=== PATIENT | female | born 1970 | race Caucasian/White ===

== ENCOUNTER 2019-01-01 11:00 | Outpatient (RCR) | payer MEDICAID, SELFPAY | END 2019-01-01 13:00 | disposition home or self-care (01) | LOC: OT 11:00 | PROVIDERS: Visit Provider Psychiatry & Neurology Neurology | DX: I63.9 Cerebral infarction, unspecified (principal); M79.609 Pain in unspecified limb; R25.2 Cramp and spasm | CPT/HCPCS: 97110; 97140; 97166 ==

== ENCOUNTER 2019-01-07 11:00 | Outpatient (RCR) | payer MEDICAID, SELFPAY | END 2019-01-07 13:00 | disposition home or self-care (01) | LOC: PT.CARL 11:00 | PROVIDERS: Visit Provider Psychiatry & Neurology Neurology | DX: I63.9 Cerebral infarction, unspecified (principal); M79.609 Pain in unspecified limb; M62.838 Other muscle spasm; R25.2 Cramp and spasm | CPT/HCPCS: 97014; 97110; 97116; 97140; 97163; G0283 ==

== ENCOUNTER 2019-10-28 16:00 | Emergency (ER) | payer MEDICAID, SELFPAY ==
[2019-10-28 16:05] VITALS: BP 132/70; PULSE 83; RESP 18; TEMP 36.7; O2SAT 98; BMI 35.5
--- NOTE | 2019-10-28 16:09 | HMH.COUGH ---
[facility] HPI - History of Present Illness Complaint:: nausea, diarrhea HPI:: 49 year old female presents to the [facility] with less than 24 hours of nausea, diarrhea, and at least 3 family members with the same symptoms. She has not had fever or cough Home Medications: Home Medications Medication Instructions Recorded Confirmed Type ondansetron HCL [Ondansetron HCl] 4 mg PO Q6HP PRN #30 tab 10/28/19 Rx Allergies/Adverse Reactions: Allergies Allergy/AdvReac Type Severity Reaction Status Date / Time No Known Allergies Allergy Verified 10/28/19 16:03 [facility] Triage - Symptoms Fever History: No Chills: No Myalgia: No Nasal Drainage: No Sore Throat: No Productive Cough: No Non-productive Cough: No Ear or Sinus Pain: No Joint Pain: No Chest Pain: No Rash: No Shortness of Breath: No Nausea or Vomitting: Yes (since this am) Headache: No Abdominal Pain: No Diarrhea: Yes - Exposure History Foreign Travel: No Direct Contact with COVID-19 Patient: No - Risk Factors Greater than 60 Years Old: No COPD: Yes Diabetes: No Heart Disease: Yes (HTN) Home Oxygen Use: No Chronic Renal Disease: No Chronic Liver Disease: No Neurologic/Neurodevelopmental/intellectual disability: No Other Chronic Diseases: No If Female, currently : No Current Smoker: Yes Former Smoker: No [facility] History I have reviewed the patient's past medical history: Yes - Social History Smoking Status: Current every day smoker Tobacco Type: cigarettes # Packs/Day (cigarettes): 1 Alcohol Intake: never Occupational Status: other ROS Obtained: Yes All systems reviewed & no additional complaints [facility] Exam - General General appearance: alert, in no apparent distress - Head Head exam: atraumatic, normocephalic, normal inspection - Eye Eye exam: Present: normal appearance, PERRL, EOMI - ENT ENT exam: Present: normal exam, normal oropharynx, mucous membranes moist, TM's normal bilaterally, normal external ear exam - Neck Neck exam: Present: normal inspection, full ROM, trachea midline. Absent: meningismus, lymphadenopathy - Chest Chest inspection: Present: normal inspection, symmetric chest wall rise. Absent: tenderness - Respiratory Respiratory exam: Present: normal lung sounds bilaterally. Absent: respiratory distress - Cardiovascular Cardiovascular exam: Present: regular rate, normal rhythm. Absent: JVD - Extremities Exam Extremities exam: Present: normal inspection, full ROM, normal capillary refill. Absent: calf tenderness - Neurological Exam Neurological exam: Present: alert, oriented X3 - Skin Skin exam: Present: warm, dry, intact, normal color - Lymphatic Lymphatic Findings: no adenopathy [facility] MDM Vital Signs: 10/28/19 16:05 10/28/19 16:15 Temperature 98.1 F 97.9 F Temperature Source Oral Oral Pulse Rate 86 Pulse Rate [Right Brachial] 83 Respiratory Rate 18 18 Blood Pressure 132/70 Blood Pressure [Right Arm] 132/70 Blood Pressure Mean [Right Arm] 90 Blood Pressure Source Automatic Cuff Blood Pressure Source [Right Arm] Automatic Cuff Blood Pressure Position Sitting Blood Pressure Position [Right Arm] Sitting 02 Sat by Pulse Oximetry 98 Oxygen Delivery Method Room Air Medical Decision Narrative: no concern about coronavirus. Diagnosis is viral gastroenteritis [facility] Disposition Clinical Impression: Gastroenteritis Disposition: Home, Self-Care Instructions: Viral Gastroenteritis Prescriptions: ondansetron HCL [Ondansetron HCl] 4 mg PO Q6HP PRN #30 tab PRN Reason: Nausea Transmission Status: Received by [facility] #[id number] Referrals: Jimena Childs APRN [Primary Care Provider] -
[2019-10-28 16:15] VITALS: BP 132/70; PULSE 86; RESP 18; TEMP 36.6; O2SAT 97
== END 2019-10-28 16:18 | disposition home or self-care (01) ==
PROVIDERS: Emergency Provider Family Medicine; PCP Nurse Practitioner Family
DX: K52.9 Noninfective gastroenteritis and colitis, unspecified (principal); F17.210 Nicotine dependence, cigarettes, uncomplicated
CPT/HCPCS: 99201; 99212

== ENCOUNTER 2021-03-11 17:50 | Emergency (ER) | payer MEDICAID, SELFPAY ==
[2021-03-11 20:20] VITALS: BP 121/67; PULSE 86; RESP 21; TEMP 37.2; O2SAT 100; BMI 42.7
[2021-03-11 20:49] LABS: UTC Strep Screen (Rapid) Negative (Negative)
[2021-03-11 21:04] LABS: Adenovirus,PCR Not Detected (NotDetected); Bordetella Pertussis Not Detected (NotDetected); Chlamydophila Pneumoniae, PCR Not Detected (NotDetected); Coronavirus NL63 Not Detected (NotDetected); Coronavirus OC43 Not Detected (NotDetected); Coronovirus HKU1,PCR Not Detected (NotDetected); Human Metapneumovirus Not Detected (NotDetected); Influenza A, PCR Not Detected (NotDetected); Influenza AH1, 2009 Not Detected (NotDetected); Influenza AH1, PCR Not Detected (NotDetected); Influenza AH3,PCR Not Detected (NotDetected); Influenza B, PCR Not Detected (NotDetected); Mycoplasma Pneumoniae, PCR Not Detected (NotDetected); Parainfluenza 1, PCR Not Detected (NotDetected); Parainfluenza 2, PCR Not Detected (NotDetected); Parainfluenza 3, PCR Not Detected (NotDetected); Parainfluenza 4, PCR Not Detected (NotDetected); Respiratory Syncytial Virus Not Detected (NotDetected); Rhinovirus/Enterovirus Not Detected (NotDetected)
--- NOTE | 2021-03-11 21:15 | HMH.EDUTC ---
[facility] [place] Impression: Viral syndrome, Exposure to COVID-19 virus Asthma exacerbation Qualifiers: Asthma severity: unspecified severity Asthma persistence: unspecified Qualified Code(s): J45.901 - Unspecified asthma with (acute) exacerbation Disposition: Home, Self-Care Condition on Discharge: Good Instructions: DI for Asthma -- Adult, Preventing the Spread of Coronavirus Discharge Instructions Additional Instructions: Drink plenty of fluids. Take tylenol or ibuprofen for pain or fever. Take the medications as directed. Follow up with your regular doctor. GO TO THE ER FOR ANY WORSENING SYMPTOMS Quarantine until you know the results of your covid-19 test. If it is positive, the health department should call you and give you further instructions about your length of Quarantine and other things. Notify your school or workplace of your results and follow their instructions regarding return to work/school. The cough medication (promethazine dm) will make you drowsy, so don't drive or operate heavy machinery after taking it. Prescriptions: Amoxicillin/Potassium Clav [Augmentin 875-125 Tablet] 1 tab PO Q12H 10 Days #20 tab Transmission Status: Received by [facility] predniSONE [Deltasone 10mg tablet] 10 mg PO DAILY 9 Days #21 tab Transmission Status: Received by [facility] guaiFENesin [Mucinex 600mg tablet] 1 - 2 tab PO BIDP PRN #30 tab.er.12h PRN Reason: Congestion Transmission Status: Received by [facility] Benzonatate [Tessalon Perle 100mg Cap] 100 mg PO TIDP PRN #30 cap PRN Reason: Cough Transmission Status: Received by [facility] Referrals: Jimena Childs APRN [Primary Care Provider] - Time of Disposition: 21:18 Medical Decision Making - Medical Records Medical records reviewed: No: I reviewed the patient's medical records. - Shivam Inquiry Pt receiving controlled substance: No Vital Signs: 03/11/21 20:20 03/11/21 21:22 Temperature 99 F 99.0 F Temperature Source Oral Pulse Rate 86 Pulse Rate [Right Brachial] 86 Respiratory Rate 21 Blood Pressure 121/67 Blood Pressure [Right Arm] 121/67 Blood Pressure Mean [Right Arm] 85 Blood Pressure Source [Right Arm] Automatic Cuff Blood Pressure Position [Right Arm] Sitting 02 Sat by Pulse Oximetry 100 Oxygen Delivery Method Room Air - Lab Data Lab Results 03/11/21 20:32: Strep Scn Rapid Clinic Negative Orders (Tests/Meds): ORDERS Category Date Time Status Full Resp Panel w/COVID ([facility]) Routine Lab 03/11/21 20:33 Received Strep Screen Confirmation Stat Micro 03/11/21 20:32 Received [facility] UTC HPI - General Stated complaint: flu/covid symptoms Time Seen by Provider: 03/11/21 21:15 Mode of Arrival: Ambulatory Source of Information: Parent(s) Limitations: No Limitations Description of Symptoms (Recalled from Triage Doc. by RN): PATIENT C/O FEVER, COUGH, MUSCLE ACHES, AND CHILLS X 2 DAYS HEENT Symptoms (Recalled from RN notes): No Resp Symptoms (Recalled from RN notes): Yes Skin Symptoms (Recalled from RN notes): No MS Symptoms (Recalled from RN notes): No Functional Status (Recalled from RN notes): WNL - History of Present Illness Provider Complaint: She c/o body ache, fever, cough, sore throat for the past 2 days. - Related Data Previous Rx's Medication Instructions Recorded ondansetron HCL [Ondansetron HCl] 4 mg PO Q6HP PRN #30 tab 10/28/19 Amoxicillin/Potassium Clav 1 tab PO Q12H 10 Days #20 tab 03/11/21 [Augmentin 875-125 Tablet] Benzonatate [Tessalon Perle 100mg 100 mg PO TIDP PRN #30 cap 03/11/21 Cap] guaiFENesin [Mucinex 600mg tablet] 1 - 2 tab PO BIDP PRN #30 03/11/21 tab.er.12h predniSONE [Deltasone 10mg tablet] 10 mg PO DAILY 9 Days #21 tab 03/11/21 Allergies Allergy/AdvReac Type Severity Reaction Status Date / Time No Known Allergies Allergy Verified 10/28/19 16:03 - Worker's Comp Is this a Worker's Comp case?:
[2021-03-11 21:22] VITALS: BP 121/67; PULSE 86; RESP 21; TEMP 37.2; O2SAT 100
[2021-03-13 16:36] LABS: Coronavirus 229E Detected (NotDetected)
[2021-03-13 16:37] LABS: Coronavirus 19, PCR Detected (NotDetected)
--- NOTE | 2021-03-13 17:28 | PC.NURSE ---
relayed pos. covid results.
== END 2021-03-11 21:23 | disposition home or self-care (01) ==
PROVIDERS: Emergency Provider Nurse Practitioner Family; PCP Nurse Practitioner Family
DX: U07.1 COVID-19 (principal); J45.901 Unspecified asthma with (acute) exacerbation; F17.210 Nicotine dependence, cigarettes, uncomplicated
CPT/HCPCS: 87581; 87633; 87798; 87880; 99202; G0463

== ENCOUNTER 2022-01-22 20:32 | Emergency (ER) | payer MEDICAID, SELFPAY ==
[2022-01-22] VITALS (11 sets, daily range): BP systolic 121–138; BP diastolic 69–78; PULSE 84–94; RESP 16–30; TEMP 36.8–37.5; O2SAT 89–97; BMI 40.7
--- NOTE | 2022-01-22 20:56 | CT_ITS ---
PROCEDURE INFORMATION: Exam: CT Head Without Contrast Exam date and time: 01/22/2022 9:28 PM Age: 51 years old Clinical indication: Other: Headache past HX of stroke; Patient HX: Past HX of stroke, left side weakness, headache; Additional info: [facility] TECHNIQUE: Imaging protocol: Computed tomography of the head without contrast. Radiation optimization: All CT scans at this facility use at least one of these dose optimization techniques: automated exposure control; mA and/or kV adjustment per patient size (includes targeted exams where dose is matched to clinical indication); or iterative reconstruction. COMPARISON: No relevant prior studies available. FINDINGS: Brain: Right MCA distribution encephalomalacia. No hemorrhage. No mass effect or midline shift. Cerebral ventricles: No ventriculomegaly. Paranasal sinuses: No fluid levels. Mastoid air cells: Visualized mastoid air cells are well aerated. Bones/joints: No acute fracture. Soft tissues: No significant soft tissue abnormality. IMPRESSION: Right MCA distribution encephalomalacia compatible with prior ischemia but limiting sensitivity for acute findings. If there is ongoing concern, MRI is recommended for further evaluation.
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
--- NOTE | 2022-01-22 20:56 | XR_ITS ---
PROCEDURE INFORMATION: Exam: XR Chest Exam date and time: 01/22/2022 9:25 PM Age: 51 years old Clinical indication: Other: Headache, past HX of stroke; Additional info: [facility] TECHNIQUE: Imaging protocol: Radiologic exam of the chest. Views: 1 view. COMPARISON: CR CXR CHEST(2 VIEWS-NOT PORTABLE) 09/07/2016 11:15 AM FINDINGS: Lungs: Unremarkable. No consolidation. Pleural spaces: Unremarkable. No pleural effusion. No pneumothorax. Heart/Mediastinum: Unremarkable. No cardiomegaly. Bones/joints: Unremarkable. Monitor device overlies the left hemithorax. IMPRESSION: No acute findings.
[2022-01-22 21:15] LABS: Coronavirus 19, PCR Not Detected (NotDetected); Influenza A, PCR Not Detected (NotDetected); Influenza B, PCR Not Detected (NotDetected)
[2022-01-22 21:34] LABS: Basophils # 0.3 K/mm3 (0-0.2); Basophils % 3.4 % (0.1-2.0); Eosinophils # 0.3 K/mm3 (0.0-0.4); Eosinophils % 2.8 % (0.1-12.0); Hematocrit 48.6 % (37.0-47.0); Hemoglobin 15.3 g/dL (12.2-16.2); Lymphocytes # 2.5 K/mm3 (0.7-4.5); Lymphocytes % 26.4 % (10-50); Mean Corpuscular HGB Conc 31.4 g/dL (31.8-35.4); Mean Corpuscular Hemoglobin 30.9 pg (27.0-31.2); Mean Corpuscular Volume 98.5 fl (81-99); Monocytes # 0.6 K/mm3 (0.1-1.0); Monocytes % 6.5 % (1.7-9.3); Neutrophils # 5.7 K/mm3 (1.8-7.8); Neutrophils % 60.8 % (37.0-80.0); Platelet Count 224 K/mm3 (142-424); Red Blood Count 4.94 M/mm3 (4.20-5.40); Red Cell Distribution Width 14.3 % (11.5-17.5); White Blood Count 9.3 K/mm3 (4.8-10.8)
[2022-01-22 21:35] LABS: Alanine Aminotransferase 57 U/L (12-78); Albumin Level 3.9 g/dl (3.5-5.0); Albumin/Globulin Ratio 1.1 (1.1-1.8); Alkaline Phosphatase 92 U/L (38-126); Anion Gap 10.2 mEq/L (5-15); Aspartate Amino Transferase 61 U/L (14-36); Bilirubin,Total 0.3 mg/dl (0.2-1.3); Blood Urea Nitrogen 15 mg/dl (7-17); Calcium 8.7 mg/dl (8.4-10.2); Carbon Dioxide 28 mmol/L (22.0-30.0); Chloride 107 mmol/L (98-107); Creatinine Clearance Estimated 108 mL/min (50-200); Estimated Glomerular Filt Rate 58 ml/min (>60); GFR (African American) 70 ML/MIN (>60); Globulin 3.4 g/dL (1.3-3.2); Glucose 113 mg/dl (74-100); Potassium 4.2 mmoL/L (3.5-5.1); Sodium 141 mmol/L (136-145); Total Protein,Serum 7.3 g/dl (6.3-8.2)
[2022-01-22 21:40] LABS: C-Reactive Protein 10.7 mg/L (0-4)
[2022-01-22 21:53] LABS: Procalcitonin 0.053 ng/mL (0.0-2.0)
--- NOTE | 2022-01-22 22:11 | PC.NURSE ---
Patient demanding to leave at this time. Requested results of INR, Spoke with Dr. Rose requested AMA to be signed.Educated patient that MD requested patient to wait on Xray results. Patient declined requesting to leave.
[2022-01-22 22:17] LABS: Erythrocyte Sedimentation Rate 15 mm/hr (0-30)
--- NOTE | 2022-01-22 22:33 | HMH.EDHA ---
ED Disposition Clinical Impression: Headache Qualifiers: Headache type: unspecified Headache chronicity pattern: acute headache Intractability: not intractable Qualified Code(s): R51.9 - Headache, unspecified UTI (urinary tract infection) Qualifiers: Urinary tract infection type: site unspecified Hematuria presence: without hematuria Qualified Code(s): N39.0 - Urinary tract infection, site not specified Disposition: Home, Self-Care Condition on Discharge: Good Instructions: DI for Headache, DI for Urinary Tract Infection (UTI) Additional Instructions: fluids and use meds and see pcp for follow up Prescriptions: levoFLOXacin [Levaquin 500mg tab] 500 mg PO DAILY #7 tab Transmission Status: Pending to [facility] Referrals: Provider,Referral, MD [Primary Care Provider] - - Critical Care Critical Care Time: No Attestation: On 01/22/22, the high probability of a clinically significant, sudden or life threatening deterioration of the following system(s) required my full and direct attention, intervention and personal management. The time I documented below is in addition to time spent performing reported procedures but includes the following listed in this critical care notation. Medical Decision Making - Medical Records Medical records reviewed: Yes: I reviewed the patient's medical records. - Shivam Inquiry Pt receiving controlled substance: No Vital Signs: 01/22/22 20:33 Temperature 99.5 F Temperature Source Oral Pulse Rate [Right] 93 H Respiratory Rate 16 Blood Pressure [Right Arm] 138/69 Blood Pressure Mean [Right Arm] 92 02 Sat by Pulse Oximetry 89 L Oxygen Delivery Method Room Air - Lab Data Lab results reviewed: Yes: I reviewed the patient's lab results. Lab Results 01/22/22 20:40: SARS-CoV-2 (PCR) Not detected, Influenza A Untype (PCR) Not detected, Influenza Type B (PCR) Not detected 01/22/22 21:00: WBC 9.3, RBC 4.94, Hgb 15.3, Hct 48.6 H, MCV 98.5, MCH 30.9, MCHC 31.4 L, RDW 14.3, Plt Count 224, MPV 9.0, Neut % (Auto) 60.8, Lymph % (Auto) 26.4, Coleman % (Auto) 6.5, Eos % (Auto) 2.8, Baso % (Auto) 3.4 H, Neut # (Auto) 5.7, Lymph # (Auto) 2.5, Coleman # (Auto) 0.6, Eos # (Auto) 0.3, Baso # (Auto) 0.3 H, ESR 15 01/22/22 21:00: Sodium 141, Potassium 4.2, Chloride 107, Carbon Dioxide 28, Anion Gap 10.2, BUN 15, Creatinine 1.00, Estimated Creat Clear 108, Estimated GFR 58 L, Est GFR ( Amer) 70, Glucose 113 H, Calcium 8.7, Total Bilirubin 0.3, AST 61 H, ALT 57, Alkaline Phosphatase 92, C-Reactive Protein 10.7 H, Total Protein 7.3, Albumin 3.9, Globulin 3.4 H, Albumin/Globulin Ratio 1.1, Procalcitonin 0.053 01/22/22 22:50: Urine Color Yellow, Urine Appearance Sl cloudy, Urine pH 6.5, Ur Specific [place] 1.015, Urine Protein Negative, Urine Glucose (UA) Negative, Urine Ketones Negative, Urine Blood Trace-i, Urine Nitrate Negative, Urine Bilirubin Negative, Urine Urobilinogen 0.2, Ur Leukocyte Esterase 3+ A, Urine RBC 3-5, Urine WBC 20-50 Result diagrams: 01/22/22 21:00 01/22/22 21:00 Orders (Tests/Meds): ED MEDICATIONS Generic Name Dose Route Start Last Admin Trade Name Freq PRN Reason Stop Dose Admin Sodium Chloride 1,000 mls @ 999 mls/hr 01/22/22 21:15 01/22/22 21:12 Sod Chlor 0.9% 1000ml Bag IV 01/22/22 22:15 999 mls/hr .Q1H1M BÁRBARA Administration Ceftriaxone Sodium 1 gm/ 50 mls @ 100 mls/hr 01/22/22 23:15 01/22/22 23:10 Sodium Chloride IV 02/05/22 23:14 100 mls/hr Q24H BÁRBARA Administration Discontinued Medications Generic Name Dose Route Start Last Admin Trade Name Freq PRN Reason Stop Dose Admin Ketorolac Tromethamine 30 mg 01/22/22 23:07 01/22/22 23:10 Ketorolac 30mg/Ml Vial IV 01/22/22 23:08 30 mg ONCE ONE Administration ORDERS Category Date Time Status Urine Culture Stat Micro 01/22/22 22:50 Received - Radiology Data #1 Image(s): Chest Image Reviewed: Yes I have reviewed radiologist's interpretation Preliminary Fin
[2022-01-22 22:56] LABS: Microscopic, Urine URINE MICROSCOPIC (MICROSCOPIC)
[2022-01-22 22:57] LABS: Appearance,Urine SL CLOUDY (Clear); Bilirubin,Urine Negative (Negative); Blood, Urine TRACE-I (Negative); Color,Urine YELLOW (Yellow); Glucose,Urine (UA) Negative (Negative); Ketones,Urine Negative (Negative); Leukocyte Esterase,Urine 3+ (Negative); Nitrate,Urine Negative (Negative); PH,Urine 6.5 (5.0-8.5); Protein,Urine Negative (Negative); Specific Gravity, Urine 1.015 (1.005-1.030); Urobilinogen,Urine 0.2 EU/dl (0.2)
[2022-01-22 22:59] LABS: WBC,Urine 20-50 #/hpf (0-3)
== END 2022-01-22 23:47 | disposition home or self-care (01) ==
PROVIDERS: Emergency Provider Emergency Medicine
DX: R51.9 Headache, unspecified (principal); N39.0 Urinary tract infection, site not specified
CPT/HCPCS: 70450; 71045; 72125; 80053; 81001; 84145; 85025; 85651; 86140; 87086; 96365; 96375; 99284; C9803; J0696; U0003; U0005

== ENCOUNTER → 2022-02-28 16:41 | Outpatient (CLI) | payer MEDICAID, SELFPAY | PROVIDERS: PCP Family Medicine; Visit Provider Family Medicine | DX: N39.0 Urinary tract infection, site not specified (principal) | CPT/HCPCS: 87086 ==

== ENCOUNTER 2022-10-01 15:58 | Emergency (ER) | payer MEDICAID, SELFPAY ==
[2022-10-01 16:05] VITALS: BP 131/60; PULSE 92; RESP 18; TEMP 36.6; O2SAT 94; BMI 42.5
[2022-10-01 16:19] LABS: Apearance,Urine Cloudy (Clear); Color,Urine Yellow (Yellow); Specific Gravity, Urine 1.015 (1.005-1.030)
--- NOTE | 2022-10-01 16:19 | EXP.UTC ---
Discharge Plan Disposition Patient Disposition: Home, Self-Care Condition: Good Prescriptions Prescriptions: New cephalexin [cephalexin] 500 mg tablet 500 mg PO BID 7 Days Qty: 14 0RF No Action Spiriva with HandiHaler 18 mcg capsule, w/inhalation device 1 cap IH DAILY Rx Instructions: puncture 1 cap using device; one dose = 2 inhalations montelukast 10 mg tablet 10 mg PO DAILY fluticasone furoate 50 mcg/actuation blister with device IH DAILY cetirizine [All Day Allergy (cetirizine)] 10 mg tablet 10 mg PO DAILY PRN albuterol sulfate [ProAir HFA] 90 mcg/actuation HFA aerosol inhaler 2 puff IH Q6H PRN dantrolene 50 mg capsule 50 mg PO TID azithromycin 250 mg tablet 250 mg PO .every other day lubiprostone [Amitiza] 24 mcg capsule 24 mcg PO DAILY budesonide-formoterol [Symbicort] 160-4.5 mcg/actuation HFA aerosol inhaler 2 puff IH DAILY omeprazole 20 mg capsule,delayed release(DR/EC) 20 mg PO BID Referrals Follow up/Referrals: Harlan Elena MD [Primary Care Provider] - See instructions Activity Restrictions/Add. Instructions Additional Instructions/Restrictions: Increase fluids, water and not soda or tea. Can drink cranberry juice or cranberry extract. Wipe front to back Wear cotton underwear Empty bladder after intercourse Start antibiotics immediately and make sure you take the full course although you may start to see improvement over the next 48 hours. You can eat yogurt or take probiotics to decrease diarrhea or yeast infection caused by the antibiotic Be sure to follow-up anytime for new or worsening symptoms in 48 hours for wound urine culture results be sure to let you PCP no recent urine for culture so they can request records and ensure that you have appropriate antibiotic if you are not getting better or getting worse. If symptoms worsen or do not improve return or be seen in the ER. Follow-up with primary care this week. Clinical Impressions Clinical Impression: UTI (urinary tract infection) Instructions Patient Instructions: DI for Urinary Tract Infection (UTI) Discharge ED Provider: Trice ([facility] [place] General Stated complaint: possible UTI,Vomitting,fever,Nausea Mode of Arrival: Ambulatory Source of Information: Patient Limitations: No Limitations Time Seen by Provider: 10/01/22 16:19 Description of Symptoms (Recalled from Triage Doc. by RN): PATIENT C/O URINE WITH STRONG ODOR AND BLOOD, LOWER BACK PAIN, AND LOWER ABDOMINAL CRAMPING X 2 DAYS HEENT Symptoms (Recalled from RN notes): No Resp Symptoms (Recalled from RN notes): No Skin Symptoms (Recalled from RN notes): No MS Symptoms (Recalled from RN notes): No Functional Status (Recalled from RN notes): WNL History of Present Illness Provider Complaint: 52 yr old female presents for bloody urine with odor,low back pain, abd cramping, freq,urgency and burning with urination for 2 days Related Data Home Medications Medication Instructions Recorded Confirmed albuterol sulfate 90 mcg/actuation 2 puff inhalation Q6H PRN 02/28/22 04/18/22 aerosol inhaler (ProAir HFA) azithromycin 250 mg tablet 250 mg PO .every other day 02/28/22 04/18/22 budesonide-formoterol HFA 160 2 puff inhalation DAILY copd 02/28/22 04/18/22 mcg-4.5 mcg/actuation aerosol inhaler (Symbicort) cetirizine 10 mg tablet (All Day 10 mg PO DAILY PRN 02/28/22 04/18/22 Allergy (cetirizine)) dantrolene 50 mg capsule 50 mg PO TID 02/28/22 04/18/22 fluticasone furoate 50 inhalation DAILY COPD 02/28/22 04/18/22 mcg/actuation blister powder for inhalation lubiprostone 24 mcg capsule 24 mcg PO DAILY IBS 02/28/22 04/18/22 (Amitiza) montelukast 10 mg tablet 10 mg PO DAILY 02/28/22 04/18/22 omeprazole 20 mg capsule,delayed 20 mg PO BID GERD 02/28/22 04/18/22 release tiotropium bromide 18 mcg capsule 1 cap inhalation DAILY 02/28/22 04/18/22 with inhalation device (Spiriva with
[2022-10-01 16:20] VITALS: BP 131/60; PULSE 92; RESP 18; TEMP 36.6; O2SAT 94
[2022-10-01 16:20] LABS: Bilirubin,Urine Negative (Negative); Blood, Urine 3+ (Negative); Glucose,Urine (UA) Negative (Negative); Ketones,Urine Negative (Negative); Protein,Urine Negative (Negative); UTC Leukocyte Esterase,Urine 3+ (Negative); UTC Nitrate,Urine Negative (Negative); Urobilinogen,Urine 0.2 EU/dl (0.2)
== END 2022-10-01 16:33 | disposition home or self-care (01) ==
PROVIDERS: Emergency Provider Nurse Practitioner Family; PCP Family Medicine
DX: N39.0 Urinary tract infection, site not specified (principal); R11.2 Nausea with vomiting, unspecified; R50.9 Fever, unspecified
CPT/HCPCS: 81003; 87086; 99212; 99214; G0463

== ENCOUNTER → 2022-10-11 09:54 | Outpatient (CLI) | payer MEDICAID, SELFPAY | PROVIDERS: PCP Family Medicine; Visit Provider Family Medicine | DX: N39.0 Urinary tract infection, site not specified (principal) | CPT/HCPCS: 87086 ==

== ENCOUNTER 2022-10-29 16:47 | Emergency (ER) | payer OTHER, MEDICAID, SELFPAY ==
[2022-10-29] VITALS (7 sets, daily range): BP systolic 110–126; BP diastolic 49–75; PULSE 71–89; RESP 16–18; TEMP 36.9; O2SAT 92–96; BMI 41.5
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
--- NOTE | 2022-10-29 18:02 | PC.NURSE ---
pt arrived back to room
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
--- NOTE | 2022-10-29 20:05 | PC.NURSE ---
Dr. Pineda at [facility] to apply splint
== END 2022-10-29 20:43 | disposition home or self-care (01) ==
PROVIDERS: Emergency Provider Student in an Organized Health Care Education/Training Program; PCP Family Medicine
DX: S52.202A Unspecified fracture of shaft of left ulna, initial encounter for closed fracture (principal); F17.210 Nicotine dependence, cigarettes, uncomplicated; V49.40XA Driver injured in collision with unspecified motor vehicles in traffic accident, initial encounter
CPT/HCPCS: 29125; 29130; 71046; 73030; 73060; 73080; 73090; 99284; 99285

== ENCOUNTER 2022-11-03 07:51 | Outpatient (RCR) | payer OTHER, MEDICAID, SELFPAY | END 2022-11-03 08:45 | disposition home or self-care (01) | LOC: OT 07:51 | PROVIDERS: Visit Provider Orthopaedic Surgery | DX: S52.602A Unspecified fracture of lower end of left ulna, initial encounter for closed fracture (principal) | CPT/HCPCS: 97760 ==

== ENCOUNTER → 2022-11-28 12:42 | Outpatient (CLI) | payer OTHER, MEDICAID, SELFPAY ==
--- NOTE | 2022-11-28 12:47 | XR_ITS ---
FINAL REPORT CLINICAL HISTORY: Left Ulna Fx COMPARISON: October 2022 FINDINGS: 2 views of the left forearm were obtained. Again seen is a transverse fracture through the mid ulna diaphysis. There is some callus formation. The joint spaces are intact. There is no soft tissue abnormality. IMPRESSION: Mid ulna fracture with evidence of healing. Reviewed, Interpreted and Dictated by Panda Donohue III, MD Transcribed by Domenic Slade Authenticated and [facility]
== END ==
PROVIDERS: PCP Family Medicine; Visit Provider Orthopaedic Surgery
DX: S52.202A Unspecified fracture of shaft of left ulna, initial encounter for closed fracture (principal)
CPT/HCPCS: 73090

== ENCOUNTER → 2022-12-28 12:49 | Outpatient (CLI) | payer OTHER, MEDICAID, SELFPAY ==
--- NOTE | 2022-12-28 12:53 | XR_ITS ---
FINAL REPORT CLINICAL HISTORY: lt ulna fx FINDINGS: 2 views of the left forearm were obtained. There is a subacute fracture of the mid diaphysis with callus formation. The alignment is unchanged since the prior exam. The joints are intact. There are no soft tissue abnormalities. IMPRESSION: Subacute fracture of the middle left ulnar diaphysis with callus formation present. Alignment remains unchanged. Reviewed, Interpreted and Dictated by Panda Donohue III, MD Transcribed by Carissa Skaggs Authenticated and [facility]
== END ==
PROVIDERS: PCP Family Medicine; Visit Provider Orthopaedic Surgery
DX: M79.632 Pain in left forearm (principal); S52.202A Unspecified fracture of shaft of left ulna, initial encounter for closed fracture
CPT/HCPCS: 73090

== ENCOUNTER → 2023-03-20 12:58 | Outpatient (CLI) | payer MEDICAID, SELFPAY | PROVIDERS: PCP Family Medicine; Visit Provider Family Medicine | DX: R30.0 Dysuria (principal); B96.1 Klebsiella pneumoniae [K. pneumoniae] as the cause of diseases classified elsewhere | CPT/HCPCS: 87086; 87088; 87186 ==

== ENCOUNTER → 2023-03-28 16:16 | Outpatient (CLI) | payer MEDICAID, SELFPAY ==
--- NOTE | 2023-03-28 16:18 | XR_ITS ---
FINAL REPORT CLINICAL HISTORY: possible rib fracture left lat mid chest COMPARISON: 09/07/2016 FINDINGS: Two views of the chest were obtained. A loop recorder is present. The heart size and pulmonary vascularity are within normal limits. The mediastinum is normal. No acute pulmonary abnormality is identified. There is no pneumothorax. The bony thorax is intact. IMPRESSION: No active cardiopulmonary disease. Reviewed, Interpreted and Dictated by Panda Donohue III, MD Transcribed by Carissa Skaggs Authenticated and [facility]
== END ==
PROVIDERS: PCP Family Medicine; Visit Provider Family Medicine
DX: R07.89 Other chest pain (principal); W19.XXXA Unspecified fall, initial encounter
CPT/HCPCS: 71046

== ENCOUNTER → 2023-05-03 09:18 | Outpatient (CLI) | payer MEDICAID, SELFPAY ==
[2023-05-03 16:30] LABS: Chloride 102 mmol/L (98-107); Potassium 4.5 mmoL/L (3.5-5.1); Sodium 142 mmol/L (136-145)
[2023-05-03 16:32] LABS: Alanine Aminotransferase 46 U/L (12-78); Alkaline Phosphatase 100 U/L (38-126); Aspartate Amino Transferase 39 U/L (14-36); Blood Urea Nitrogen 13 mg/dl (7-17); Estimated Glomerular Filt Rate 88 ml/min (>60); GFR (African American) 106 ML/MIN (>60)
[2023-05-03 16:33] LABS: Albumin Level 3.9 g/dl (3.5-5.0); Albumin/Globulin Ratio 1.3 (1.1-1.8); Anion Gap 10.5 mEq/L (5-15); Calcium 8.9 mg/dl (8.4-10.2); Carbon Dioxide 34 mmol/L (22.0-30.0); Chol/HDL Ratio 6.2 (1-3.5); Cholesterol 186 mg/dl (140-200); Globulin 2.9 g/dL (1.3-3.2); Glucose 108 mg/dl (74-100); HDL Cholesterol 30 mg/dl (40-60); Total Protein,Serum 6.8 g/dl (6.3-8.2); Triglycerides 179 mg/dl (30-150); VLDL Cholesterol 36 mg/dL (0-40)
[2023-05-03 16:44] LABS: Direct LDL Cholesterol 116.45 mg/dL (100-129)
[2023-05-03 16:47] LABS: Bilirubin,Total 0.1 mg/dl (0.2-1.3)
[2023-05-03 16:50] LABS: Basophils # 0.1 K/mm3 (0-0.2); Basophils % 1.1 % (0.1-2.0); Eosinophils # 0.6 K/mm3 (0.0-0.4); Eosinophils % 6.1 % (0.1-12.0); Hematocrit 38.9 % (37.0-47.0); Lymphocytes # 3.5 K/mm3 (0.7-4.5); Lymphocytes % 33.2 % (10-50); Mean Corpuscular HGB Conc 36.1 g/dL (31.8-35.4); Mean Corpuscular Hemoglobin 34.8 pg (27.0-31.2); Mean Corpuscular Volume 96.4 fl (81-99); Mean Platelet Volume 8.4 fl (7.4-10.4); Monocytes # 0.6 K/mm3 (0.1-1.0); Monocytes % 6.1 % (1.7-9.3); Neutrophils # 5.6 K/mm3 (1.8-7.8); Neutrophils % 53.5 % (37.0-80.0); Platelet Count 284 K/mm3 (142-424); Red Blood Count 4.03 M/mm3 (4.20-5.40); Red Cell Distribution Width 13.7 % (11.5-17.5); White Blood Count 10.4 K/mm3 (4.8-10.8)
[2023-05-03 17:04] LABS: Thyroid Stimulating Hormone 3.54 uIU/mL (0.465-4.68)
[2023-05-03 17:39] LABS: Hemoglobin A1C 5.7 % (4.0-6.0)
== END ==
LOC: LAB.DROPOF 05-04 09:18
PROVIDERS: PCP Nurse Practitioner Family; Visit Provider Nurse Practitioner Family
DX: J44.9 Chronic obstructive pulmonary disease, unspecified (principal); Z72.0 Tobacco use
CPT/HCPCS: 80053; 80061; 83036; 84443; 85025

== ENCOUNTER → 2023-05-24 09:44 | Outpatient (CLI) | payer MEDICAID, SELFPAY ==
--- NOTE | 2023-05-24 09:44 | MM_ITS ---
PROCEDURE INFORMATION: Exam: Bilateral Screening 3D Mammography Exam date and time: 05/24/2023 9:35 AM Age: 52 years old Clinical indication: Screening examination TECHNIQUE: Imaging protocol: Bilateral Screening tomosynthesis and 2D mammography including computer-aided detection (CAD) when performed. COMPARISON: 1. MG DMDXUWAL DIG MAMM-DX UNI LT W/AVS W/CAD 12/08/2016 1:47 PM 2. MG DMSB DIG MAMM-SCREEN SOPHIA 02/22/2016 4:47 PM FINDINGS: MAMMOGRAPHY: Breast composition: There are scattered areas of fibroglandular density. Mass: None. Architectural distortion: None. Calcifications: No suspicious calcifications. Asymmetric density: None. Skin thickening: None. Axillary adenopathy: None. IMPRESSION: No mammographic evidence of malignancy. Annual screening is recommended unless otherwise clinically indicated. ASSESSMENT: BI-RADS Category 1: Negative
== END ==
PROVIDERS: PCP Nurse Practitioner Family; Visit Provider Nurse Practitioner Family
DX: Z12.31 Encounter for screening mammogram for malignant neoplasm of breast (principal)
CPT/HCPCS: 77063; 77067

== ENCOUNTER 2023-10-01 16:06 | Emergency (ER) | payer MEDICAID, SELFPAY ==
[2023-10-01 16:07] VITALS: BP 128/58; PULSE 104; RESP 17; TEMP 37; O2SAT 93; BMI 41.8
--- NOTE | 2023-10-01 16:35 | CT_ITS ---
PROCEDURE INFORMATION: Exam: CT Abdomen And Pelvis With Contrast Exam date and time: 10/01/2023 5:08 PM Age: 53 years old Clinical indication: Abdominal pain; Additional info: Lower abd pain, post menopausal bleeding TECHNIQUE: Imaging protocol: Computed tomography of the abdomen and pelvis with contrast. Radiation optimization: All CT scans at this facility use at least one of these dose optimization techniques: automated exposure control; mA and/or kV adjustment per patient size (includes targeted exams where dose is matched to clinical indication); or iterative reconstruction. Contrast material: ISOVUE; Contrast volume: 75 ml; Contrast route: IV; COMPARISON: 1. CR XR CHEST 2V 03/28/2023 4:20 PM 2. CR XR CHEST 2V 10/29/2022 5:32 PM 3. CR XR CHEST PORTABLE 01/22/2022 9:25 PM FINDINGS: Lungs: Calcified granuloma in the left lower lobe. Liver: There is possible hepatic steatosis, evaluation is limited secondary to contrast enhancement. There is early morphologic changes of cirrhosis with volume redistribution. No concerning focal liver lesion. Gallbladder and bile ducts: No acute process. Pancreas: Normal. Spleen: Normal. Adrenal glands: The adrenal glands appear normal. Kidneys and ureters: There are no soft tissue renal masses or hydronephrosis. Stomach and bowel: The stomach, small bowel, and colon are well-distended and show no evidence of wall thickening, masses, or obstruction. Appendix: No evidence of appendicitis. Intraperitoneal space: There is stranding in the central abdominal mesentery which could be associated with mesenteric panniculitis/sclerosing mesenteritis but is technically nonspecific for any entity. There is a small volume of free fluid in the pelvis. Vasculature: The abdominal aorta and its major branches appear normal without evidence of aneurysm or stenosis. There are pelvic phleboliths. Lymph nodes: No lymphadenopathy. Urinary bladder: Bladder out. There is moderate distention of the urinary bladder. Reproductive: Small locules of air in the vagina. Bones/joints: The visualized osseous structures of the abdomen and pelvis appear normal for patient age. Soft tissues: Subcutaneous nodule in the left back, likely a small cyst. IMPRESSION: Small volume free fluid in the pelvis, otherwise unremarkable study.
--- NOTE | 2023-10-01 16:46 | ED_ITS ---
Discharge Plan Disposition Patient Disposition: Home, Self-Care Prescriptions Prescriptions: No Action fluticasone propionate [Flovent HFA] 220 mcg/actuation HFA aerosol inhaler 1 puff inhalation BID latanoprost 0.005 % drops 1 drp Eye-Both HS Patient Comments: INSTILL 1 DROP INTO BOTH EYES EVERY DAY AT BEDTIME polyethylene glycol 3350 17 gram/dose powder 17 g PO Patient Comments: TAKE 17 GRAMS MIXED IN LIQUID DIRECTED TWICE A DAY Dupixent Pen 300 mg/2 mL pen injector SQ Spiriva with HandiHaler 18 mcg capsule, w/inhalation device 1 cap IH DAILY Rx Instructions: puncture 1 cap using device; one dose = 2 inhalations montelukast 10 mg tablet 10 mg PO DAILY fluticasone furoate 50 mcg/actuation blister with device IH DAILY cetirizine [All Day Allergy (cetirizine)] 10 mg tablet 10 mg PO DAILY PRN albuterol sulfate [ProAir HFA] 90 mcg/actuation HFA aerosol inhaler 2 puff IH Q6H PRN lubiprostone [Amitiza] 24 mcg capsule 24 mcg PO DAILY budesonide-formoterol [Symbicort] 160-4.5 mcg/actuation HFA aerosol inhaler 2 puff IH DAILY dantrolene 100 mg capsule 100 mg PO TID Patient Comments: TAKE 1 CAPSULE BY MOUTH THREE TIMES A DAY baclofen 10 mg tablet 10 mg PO TID Patient Comments: TAKE 1 TABLET BY MOUTH THREE TIMES A DAY pantoprazole 40 mg tablet,delayed release (DR/EC) 40 mg PO BID Patient Comments: TAKE 1 TABLET (40 MG TOTAL) BY MOUTH 2 (TWO) TIMES A DAY BEFORE MEALS. DO NOT CRUSH, CHEW, OR SPLIT. aspirin 325 mg tablet,delayed release (DR/EC) 325 mg PO DAILY Patient Comments: TAKE 1 TABLET BY MOUTH EVERY DAY Botox 100 unit recon soln SQ [id number] fluticasone propionate 50 mcg/actuation spray,suspension 2 spray intranasal DAILY nitrofurantoin monohyd/m-cryst [Macrobid] 100 mg capsule 100 mg PO Q12H 7 Days Qty: 14 0RF Rx Instructions: must administer with a meal/food metronidazole 500 mg tablet 500 mg PO BID 7 Days Qty: 14 0RF rosuvastatin 10 mg tablet 10 mg PO DAILY Qty: 30 2RF Referrals Follow up/Referrals: Lula Pena APRN [Primary Care Provider] - See instructions Kelly Donald DO [Staff Physician] - See instructions Activity Restrictions/Add. Instructions Additional Instructions/Restrictions: Please call tomorrow to make an immediate follow-up to have an outpatient evaluation and biopsies performed as the concern is still malignancy in the setting of postmenopausal bleeding. No definitive evidence of this on the emergency evaluation no emergent medical condition identified. Please return with any severe bleeding as discussed Clinical Impressions Clinical Impression: Post-menopausal bleeding Discharge ED Provider: Anjel Pendleton General Adult HPI General Chief complaint: Vaginal Bleeding Stated complaint: poss miscarriage Time Seen by Provider: 10/01/23 16:22 Mode of Arrival: Wheelchair Source of Information: Patient Limitations: No Limitations Description of Symptoms (Recalled from ER Triage Doc. by RN): patient to ED via wheelchair with initial complaint of moderate vaginal bleeding that began this morning. Patient with complaints of lower back pain and abdominal cramping x2days. Denies n/v/d or dizziness. Pt LMP 7 years ago, and reports that she believes that she has already experienced menopause. History of Present Illness HPI narrative: Is a 53-year-old female presenting today with postmenopausal vaginal bleeding. States that she was traveling to [place] earlier today and felt some discomfort and warmth in her pelvic area and noticed a large amount of blood in her panties. She has had ongoing bleeding since that time. Most recently put on a new pad/depend just prior to arrival. States that she had been having some hematuria in the past and was recently seen by an [employer] doctor to have a Pap smear which was unremarkable no source of the bleeding was ever identified either by urologist or by [employer]. Before that she did have an abnormal Pap smear in the early 90s but had not had any abnormalities since that time no history of any cervical or uterine cancer to her knowledge. Denies any bleeding or bruising elsewhere. She is on aspirin but not on any other anticoagulation. She has chronic left sided paralysis from an old stroke. Related Data Home Medications Medication Instructions Recorded Confirmed albuterol sulfate 90 mcg/actuation 2 puff inhalation Q6H PRN 02/28/22 06/28/23 aerosol inhaler (ProAir HFA) budesonide-formoterol HFA 160 2 puff inhalation DAILY copd 02/28/22 06/28/23 mcg-4.5 mcg/actuation aerosol inhaler (Symbicort) cetirizine 10 mg tablet (All Day 10 mg PO DAILY PRN 02/28/22 06/28/23 Allergy (cetirizine)) fluticasone furoate 50 inhalation DAILY COPD 02/28/22 06/28/23 mcg/actuation blister powder for inhalation lubiprostone 24 mcg capsule 24 mcg PO DAILY IBS 02/28/22 06/28/23 (Amitiza) montelukast 10 mg tablet 10 mg PO DAILY 02/28/22 06/28/23 tiotropium bromide 18 mcg capsule 1 cap inhalation DAILY 02/28/22 06/28/23 with inhalation device (Spiriva with HandiHaler) aspirin 325 mg tablet,delayed 325 mg PO DAILY 10/11/22 06/28/23 release baclofen 10 mg tablet 10 mg PO TID 10/11/22 06/28/23 dantrolene 100 mg capsule 100 mg PO TID 10/11/22 06/28/23 onabotulinumtoxinA 100 unit SQ [id number] 10/11/22 06/28/23 solution for injection (Botox) pantoprazole 40 mg tablet,delayed 40 mg PO BID 10/11/22 06/28/23 release fluticasone propionate 220 1 puff inhalation BID copd 10/25/22 06/28/23 mcg/actuation HFA aerosol inhaler (Flovent HFA) latanoprost 0.005 % eye drops 1 drp Eye-Both HS 02/28/23 06/28/23 fluticasone propionate 50 2 spray intranasal DAILY 05/03/23 06/28/23 mcg/actuation nasal spray,suspension dupilumab 300 mg/2 mL subcutaneous mg SQ 06/28/23 06/28/23 pen injector (Dupixent) polyethylene glycol 3350 17 17 g PO 06/28/23 06/28/23 gram/dose oral powder Previous Rx's Medication Instructions Recorded nitrofurantoin 100 mg PO Q12H 7 days #14 caps 03/02/23 monohydrate/macrocrystals 100 mg capsule (Macrobid) metronidazole 500 mg tablet 500 mg PO BID 7 days #14 tabs 07/06/23 rosuvastatin 10 mg tablet 10 mg PO DAILY #30 tabs 08/06/23 Allergies Allergy/AdvReac Type Severity Reaction Status Date / Time No Known Allergies Allergy Verified 06/28/23 13:38 [facility] Disclaimer: The information contained in this section may have been updated after the patient was seen, as this information can be updated by other users. Medical History Asthma exacerbation Chronic obstructive pulmonary disease Ovarian cyst Status post CVA Vocal cord polyps Surgical History H/O knee surgery H/O removal of cyst History of cholecystectomy Family History Father Tuberculosis Coronary artery disease Mother Diabetes Hypertension Coronary artery disease Sister Cancer Social History Smoking Status: Current every day smoker tobacco type: cigarettes packs per day: 1 alcohol intake: never substance use type: denies use current occupational status: disabled Travel in the last 8 weeks: None household members: children housing: apartment ROS Obtained: Yes All systems reviewed & no additional complaints except as documented Physical Exam General General appearance: alert and in no apparent distress Respiratory Respiratory exam: Present normal lung sounds bilaterally Cardiovascular Cardiovascular exam: Present regular rate and normal rhythm Abdominal Exam Abdominal exam: Present soft and tenderness (There is right lower quadrant suprapubic and left lower quadrant tenderness to palpation no rebound or guarding) External exam: Present normal external exam Speculum exam: Present vaginal bleeding (Clear source of bleeding with dark color blood in the vaginal cavity no lacerations or masses seen) Neurological Exam Neurological exam: Present alert and oriented X3 Medical Decision Making Shivam Inquiry Pt receiving controlled substance: No Vital Signs: 10/01/23 16:07 Temperature 98.6 F Temperature Source Oral Pulse Rate [Right] 104 H Respiratory Rate 17 Blood Pressure [Right Arm] 128/58 L Blood Pressure Mean [Right Arm] 81 Blood Pressure Source [Right Arm] Automatic Cuff 02 Sat by Pulse Oximetry 93 L Oxygen Delivery Method Room Air Lab Data Lab results reviewed: Yes I reviewed the patient's lab results. Lab Results 10/01/23 16:23: WBC 10.8, RBC 4.73, Hgb 14.5, Hct 46.6, MCV 98.6, MCH 30.6, MCHC 31.0 L, RDW 14.3, Plt Count 301, MPV 8.2, Neut % (Auto) 69.3, Lymph % (Auto) 21.9, [place] % (Auto) 5.0, Eos % (Auto) 2.3, Baso % (Auto) 1.5, Neut # (Auto) 7.5, Lymph # (Auto) 2.4, [place] # (Auto) 0.6, Eos # (Auto) 0.2, Baso # (Auto) 0.2, PT 10.5, INR 0.97, APTT 25.6, Sodium 144, Potassium 4.5, Chloride 106, Carbon Dioxide 34 H, Anion Gap 8.5, BUN 12, Creatinine 0.90, Estimated Creat Clear 62, Estimated GFR 65, Est GFR ( Amer) 79, Glucose 115 H, Calcium 9.1, Total Bilirubin 0.5, AST 71 H, ALT 72, Alkaline Phosphatase 81, Total Protein 7.3, Albumin 4.2, Globulin 3.1, Albumin/Globulin Ratio 1.4, TSH 1.92, Serum HCG, Qual Negative 10/01/23 16:23 10/01/23 16:23 Orders (Tests/Meds): ED MEDICATIONS Generic Name Dose Route Start Last Admin Trade Name Freq PRN Reason Stop Dose Admin Sodium Chloride 10 ml 10/01/23 17:15 10/01/23 17:15 Sodium Chloride 0.9% 10ml Syr (Rad Only) IV 10/31/23 17:14 10 ml NEEDED PRN Administration Maintain IV Site Discontinued Medications Generic Name Dose Route Start Last Admin Trade Name Freq PRN Reason Stop Dose Admin Lactated Ringer's 1,000 mls @ 999 mls/hr 10/01/23 16:45 10/01/23 17:04 Lactated Ringer's 1000 Ml Bag IV 10/01/23 17:45 999 mls/hr .Q1H1M BÁRBARA Administration Iopamidol 75 ml 10/01/23 17:15 10/01/23 17:15 Iopamidol-370 (76%);100ml Bottle IV 10/01/23 17:16 75 ml ONCE ONE Administration ORDERS Category Date Time Status CT abdomen pelvis w con Stat Cat Scan 10/01/23 16:35 Completed CBC w/Auto Diff [Complete Blood Count Auto Diff] Stat Lab 10/01/23 16:23 Completed CMP [Comprehensive Metabolic Panel] Stat Lab 10/01/23 16:23 Completed HCG Qualitative, Serum Stat Lab 10/01/23 16:23 Completed PT/PTT Stat Lab 10/01/23 16:23 Completed TSH [Thyroid Stimulating Hormone] Stat Lab 10/01/23 16:23 Completed Medical Decision Narrative: Patient is a 53-year-old female who is 7 years postmenopausal presenting today with vaginal bleeding. This was confirmed on physical exam I do not suspect that there is bleeding coming elsewhere. She has lower abdominal discomfort and postmenopausal bleeding is from my perspective malignancy until proven otherwise. Will get a CT scan with contrast to further look into this. Differential includes cervical cancer uterine cancer ovarian cancer etc. She had no signs of trauma. Will reassess after her workup is complete. Reassessment 624 patient very stable serial exams benign CT scan performed I personally interpreted which shows no acute abnormality this is also consistent with radiology read. Labs unremarkable. Patient advised to follow-up closely with [employer] to get biopsies performed as am still highly concerned about malignancy in this postmenopausal bleeding patient without an alternative diagnosis. Patient was discharged in stable condition with return precautions emphasized and follow-up instructions understood. Critical Care Critical Care Time Critical Care Time: No
[2023-10-01 16:50] LABS: Chloride 106 mmol/L (98-107); Potassium 4.5 mmoL/L (3.5-5.1); Sodium 144 mmol/L (136-145)
[2023-10-01 16:53] LABS: Alanine Aminotransferase 72 U/L (12-78); Albumin Level 4.2 g/dl (3.5-5.0); Albumin/Globulin Ratio 1.4 (1.1-1.8); Alkaline Phosphatase 81 U/L (38-126); Anion Gap 8.5 mEq/L (5-15); Aspartate Amino Transferase 71 U/L (14-36); Basophils # 0.2 K/mm3 (0-0.2); Basophils % 1.5 % (0.1-2.0); Bilirubin,Total 0.5 mg/dl (0.2-1.3); Blood Urea Nitrogen 12 mg/dl (7-17); Carbon Dioxide 34 mmol/L (22.0-30.0); Creatinine Clearance Estimated 62 mL/min (50-200); Eosinophils # 0.2 K/mm3 (0.0-0.4); Eosinophils % 2.3 % (0.1-12.0); Estimated Glomerular Filt Rate 65 ml/min (>60); GFR (African American) 79 ML/MIN (>60); Globulin 3.1 g/dL (1.3-3.2); Hematocrit 46.6 % (37.0-47.0); Hemoglobin 14.5 g/dL (12.2-16.2); Lymphocytes # 2.4 K/mm3 (0.7-4.5); Lymphocytes % 21.9 % (10-50); Mean Corpuscular Hemoglobin 30.6 pg (27.0-31.2); Mean Corpuscular Volume 98.6 fl (81-99); Mean Platelet Volume 8.2 fl (7.4-10.4); Monocytes # 0.6 K/mm3 (0.1-1.0); Neutrophils # 7.5 K/mm3 (1.8-7.8); Neutrophils % 69.3 % (37.0-80.0); Platelet Count 301 K/mm3 (142-424); Red Blood Count 4.73 M/mm3 (4.20-5.40); Red Cell Distribution Width 14.3 % (11.5-17.5); Total Protein,Serum 7.3 g/dl (6.3-8.2); White Blood Count 10.8 K/mm3 (4.8-10.8)
[2023-10-01 16:54] LABS: Calcium 9.1 mg/dl (8.4-10.2); Glucose 115 mg/dl (74-100)
[2023-10-01 17:00] LABS: Activated Partial Thrombo Time 25.6 seconds (22.8-30.6); INR 0.97 (0.9-1.1); Prothrombin Time 10.5 seconds (10.1-12.5)
[2023-10-01] MEDS: LACTATED RINGERS 1000ML 1,000 ML 999 ML IV (17:04)
[2023-10-01 17:06] LABS: HCG Qualitative, Serum Negative (Negative)
[2023-10-01] MEDS: IOPAMIDOL-370 (76%);100ML BOTTLE 75 ML IV (17:15)
[2023-10-01] MEDS: SODIUM CHLORIDE 0.9% 10ML SYR (RAD ONLY) 10 ML IV (17:15)
[2023-10-01 17:25] LABS: Thyroid Stimulating Hormone 1.92 uIU/mL (0.465-4.68)
[2023-10-01 18:31] VITALS: BP 128/58; PULSE 104; RESP 17; TEMP 37; O2SAT 93
== END 2023-10-01 18:33 | disposition home or self-care (01) ==
PROVIDERS: Emergency Provider Student in an Organized Health Care Education/Training Program; PCP Nurse Practitioner Family
DX: N93.9 Abnormal uterine and vaginal bleeding, unspecified (principal); R10.9 Unspecified abdominal pain; M54.50 Low back pain, unspecified; Z79.82 Long term (current) use of aspirin; J44.9 Chronic obstructive pulmonary disease, unspecified; Z86.73 Personal history of transient ischemic attack (TIA), and cerebral infarction without residual deficits; F17.210 Nicotine dependence, cigarettes, uncomplicated
CPT/HCPCS: 74177; 80053; 84443; 84703; 85025; 85610; 85730; 96360; 99285; Q9967

== ENCOUNTER 2023-10-09 10:59 | Outpatient (CLI) | payer MEDICAID, SELFPAY ==
--- NOTE | 2023-10-09 10:59 | US_ITS ---
PROCEDURE: US TRANSVAGINAL CLINICAL INDICATION: COMPARISON: CT CT ABDOMEN PELVIS W CON from 10/01/2023 FINDINGS: Transvaginal sonographic images of the pelvis were obtained. UTERUS: 7.6 cm x 5.0cmx 4.2cm retroverted with a combined endometrial thickness of up to 17 mm. The endometrium is grossly thickened all the way to the cervix. It is best seen on the transverse views. LEFT OVARY: 2.2cmx2.3cmx1.2cm with a volume of 3.1ml. RIGHT OVARY: 3cmx 1.4cmx1.2cm with a volume of 2.4ml. There is a moderate amount of fluid in the right adnexa. Both ovaries are seen and appear normal. Doppler flow to both ovaries are seen. There is moderate fluid in the cul-de-sac. IMPRESSION: 1. Retroverted uterus normal in shape and size. 2. The endometrium is grossly thickened and this thickness goes all the way to the cervix. On transverse view the endometrium measures up to 22 mm. 3. Concerning for endometrial carcinoma and endometrial sampling is suggested. 4. The ovaries are seen and appear normal. 5. There is moderate fluid in the cul-de-sac and significant fluid around the right ovary. This could represent ascites as result of her liver disease seen on the recent CT scan. Dictated by: Marquez Stewart MD 10/10/2023 08:20 Marquez Stewart MD in OV 10/10/2023 08:20
== END 2023-10-09 23:59 ==
LOC: RAD 10:59
PROVIDERS: PCP Family Medicine; Visit Provider Obstetrics & Gynecology
DX: N95.0 Postmenopausal bleeding (principal)
CPT/HCPCS: 76830

== ENCOUNTER 2023-10-29 09:35 | Outpatient (CLI) | payer MEDICAID, SELFPAY ==
[2023-10-29 10:12] LABS: Basophils # 0.1 K/mm3 (0-0.2); Basophils % 1.1 % (0.1-2.0); Eosinophils # 0.3 K/mm3 (0.0-0.4); Eosinophils % 2.5 % (0.1-12.0); Hematocrit 44.6 % (37.0-47.0); Hemoglobin 13.8 g/dL (12.2-16.2); Mean Corpuscular Hemoglobin 30.6 pg (27.0-31.2); Mean Corpuscular Volume 98.5 fl (81-99); Mean Platelet Volume 7.7 fl (7.4-10.4); Monocytes # 0.6 K/mm3 (0.1-1.0); Monocytes % 4.9 % (1.7-9.3); Neutrophils # 8.8 K/mm3 (1.8-7.8); Neutrophils % 68.4 % (37.0-80.0); Platelet Count 283 K/mm3 (142-424); Red Blood Count 4.52 M/mm3 (4.20-5.40); Red Cell Distribution Width 14.7 % (11.5-17.5); White Blood Count 12.8 K/mm3 (4.8-10.8)
[2023-10-29 10:50] LABS: Alanine Aminotransferase 44 U/L (12-78); Albumin Level 3.9 g/dl (3.5-5.0); Albumin/Globulin Ratio 1.5 (1.1-1.8); Alkaline Phosphatase 92 U/L (38-126); Anion Gap 8.9 mEq/L (5-15); Aspartate Amino Transferase 37 U/L (14-36); Bilirubin,Total 0.5 mg/dl (0.2-1.3); Blood Urea Nitrogen 16 mg/dl (7-17); Carbon Dioxide 31 mmol/L (22.0-30.0); Chloride 105 mmol/L (98-107); Estimated Glomerular Filt Rate 104 ml/min (>60); GFR (African American) 126 ML/MIN (>60); Globulin 2.6 g/dL (1.3-3.2); Glucose 117 mg/dl (74-100); Potassium 3.9 mmoL/L (3.5-5.1); Sodium 141 mmol/L (136-145); Total Protein,Serum 6.5 g/dl (6.3-8.2)
[2023-10-29 11:06] LABS: HCG,Quantitative < 2 mIU/ml (0-5.42)
== END 2023-10-29 23:59 | disposition home or self-care (01) ==
LOC: LAB 09:36
PROVIDERS: PCP Family Medicine; Visit Provider Obstetrics & Gynecology
DX: R93.89 Abnormal findings on diagnostic imaging of other specified body structures (principal)
CPT/HCPCS: 36415; 80053; 84702; 85025

== ENCOUNTER 2023-10-31 07:01 | Day surgery (SDC) | payer MEDICAID, SELFPAY ==
[2023-10-31] VITALS (11 sets, daily range): BP systolic 114–147; BP diastolic 56–70; PULSE 98–105; RESP 16–22; TEMP 36.1–36.6; O2SAT 90–95; BMI 44.2
[2023-10-31] MEDS: LACTATED RINGERS 1000ML 1,000 ML 25 ML IV (07:31)
--- NOTE | 2023-10-31 07:31 | EXP.ANES.CKL ---
[facility] Disclaimer: The information contained in this section may have been updated after the patient was seen, as this information can be updated by other users. Medical History Endometrial thickening on ultrasound Irritable bowel syndrome History of stroke Ovarian cyst Vocal cord polyps Chronic obstructive pulmonary disease Status post CVA Asthma exacerbation Surgical History History of cholecystectomy H/O removal of cyst H/O knee surgery Family History Father Tuberculosis Coronary artery disease Mother Diabetes Hypertension Coronary artery disease Sister Cancer Social History Smoking Status: Current every day smoker tobacco type: cigarettes packs per day: 1 alcohol intake: never substance use type: denies use current occupational status: disabled Travel in the last 8 weeks: None household members: children housing: apartment [facility] Anesthesia Checklist Patient Identification Patient Identification: Arm Band and Verbal (Name & ) Structural Data Admitted From: Home Planned Operative Procedure/s: Hyst/D & C Consent for Planned Operative Procedure(s) Verified: Yes NPO Status Verified Time NPO: 00:00 Chart Verification Results Verified: CBC, BMP and HCG Additional verifications Anesthesia Reactions: No Hx Blood Transfusions: No Airway Assessment Mallampati Score:: Class II C-Spine Mobility Assessed: Yes TMJ Mobility Assessed: Yes Dentition: Edentulous Neurological Assessment Level of Consciousness: Awake Hx Seizures: No Numbness or tingling in extremities: Yes Anesthesia Plan Anesthesia Risk discussed: Yes Anesthesia Plan: Verified ASA Class: III Anesthesia Type: General
--- NOTE | 2023-10-31 09:29 | P.PNANES_ITS ---
[facility] Anesthesia Record Part I Anesthesia Record I Intake, IV Amount: 700 Estimated blood loss (mL): 50 Urine output (mL): 0 Blood Products used (#): none Blood Pressure: 146/66
[2023-10-31] MEDS: MORPHINE 2MG/ML SYRINGE 1 MG IV (09:30)
--- NOTE | 2023-10-31 09:34 | EXP.ANES.I ---
[facility] Anesthesia Record Part I Anesthesia Record I Intake, IV Amount: 700 Hydration: Adequate Estimated blood loss (mL): 50 Urine output (mL): 0 Blood Products used (#): none Blood Pressure: 146/66 SaO2: 92 Pulse Rate: 104 Airway Patency: Patent Respiratory Rate: 22 Temperature: 97.5 F Patient is:: Drowsy and Stable Stable to PACU at:: 09:20
[2023-10-31] MEDS: HYDROMORPHONE 2MG/ML SYRINGE 0.5 MG IV (09:38)
--- NOTE | 2023-10-31 09:56 | EXP.OP.NOTE ---
Date of procedure: 10/31/23 Pre-op Diagnosis:: 1. Postmenopausal bleeding 2. Thickened endometrium Post-op Diagnosis:: 1. Postmenopausal bleeding 2. Thickened endometrium Procedure performed:: Hysteroscopy, dilation and curettage Surgeon:: Kelly Donald DO Scuba Diver(s):: N/a BUNG SEWER:: Larry Riggs Anesthesia: GETA Estimated blood loss (mL): 50 Clinical Note:: Melia is a very pleasant 53 yo female who presents to [facility] For scheduled procedure. She reports postmenopausal bleeding. Last period was 7 years ago right before her stroke. On 10/01/23 she was driving her best friend to an eye doctor appointment and felt two small gushes in her underwear. She has some bladder leakage and thought the warm feeling was urine. However, when she got home her underwear was soaked with blood and she had some clots. By the next morning the bleeding had stopped. She still has some bilateral lower pelvic cramping and occasional, intermittent red spotting. CT scan of abdomen/pelvis performed in the ED 09/30 only commented on Small locules of air in the vagina. No other comment on reproductive organs. Pelvic ultrasound demonstrated retroverted uterus normal in shape and size. 2. The endometrium is grossly thickened and this thickness goes all the way to the cervix. On transverse view the endometrium measures up to 22 mm. 3. Concerning for endometrial carcinoma and endometrial sampling is suggested. 4. The ovaries are seen and appear normal. 5. There is moderate fluid in the cul-de-sac and significant fluid around the right ovary. Operative findings:: 1. On bimanual exam, uterus midposition, normal size and shape. No adnexal masses palapted 2. On hysteroscopic exam, large amount of fluffy tissue with blood vessels present. Tubal ostia not visualized secondary to large amount of fluffy tissue Operative note:: Risks, benefits and alternatives were discussed with the patient. Risks include but are not limited to bleeding, infection, uterine perforation and VTE. Patient voiced understanding and agreed to proceed. She was wheeled back to the operating room and placed under MAC without difficulty. She was placed in dorsal lithotomy position and prepped and draped in the normal sterile fashion. Straight catheter was used to drain the bladder. A bimanual exam was performed. A weighted Auvard was placed in the vaginal vault. Single tooth tenaculum was placed on anterior lip of the cervix. Uterus sounded to 9. Sequential Richard dilators were used to dilate the cervical os. Hysteroscope was tested inserted through the cervix without difficulty. Endometrial cavity was evaluated. See findings above. Pictures were taken. Hysteroscope was removed. A medium size sharp curette was inserted through the cervix into the uterine cavity and endometrium was curetted with a systematic back and forth movement in a 360 degree manner. All endometrial curettings will be sent to pathology for review. Instruments were removed from the vagina. Tenaculum site was noted to oozing. Silver nitrate stick x 1 used. Excellent hemostasis was noted. Patient was awaken from anesthesia without difficulty. She was transported to recovery room in stable condition. Patient will be discharged home when awake and ambulating. She was given postop instructions as well as instructions to follow-up in the office in 2 weeks. Condition: stable Disposition: same day Specimens:: 1. Endometrial curettings Complications:: None
[2023-10-31] MEDS: ONDANSETRON 4MG/2ML VIAL 4 MG IV (09:58)
--- NOTE | 2023-10-31 11:25 | EXP.ANES.II ---
[facility] Anesthesia Record Part II Anesthesia Record Part II Discharge Time: 10:00 Destination: Surgical Day Care (OP Surgery) PACU nurse assessment reviewed?: Yes Patient Condition:: Good Anesthesia Complications:: None Swallowing reflex intact?: Yes Airway Patency: Patent Cyanosis?: No Blood Pressure: 135/64 SaO2: 90 Respiratory Rate: 18 Pulse Rate: 103 Temperature: 97.8 F Mental Status: Alert & Oriented Pain level:: 3 Nausea and/or vomitting:: None Intake, IV Amount: 0 Hydration: Adequate
== END 2023-10-31 10:40 | disposition home or self-care (01) ==
PROVIDERS: PCP Family Medicine; Visit Provider Obstetrics & Gynecology
PROC: (CPT 58558; principal; 2023-10-31 08:30)
DX: N95.0 Postmenopausal bleeding (principal); Z99.81 Dependence on supplemental oxygen; N85.00 Endometrial hyperplasia, unspecified; C54.1 Malignant neoplasm of endometrium
CPT/HCPCS: 58558; J2405; J2704

== ENCOUNTER 2023-11-15 12:39 | Emergency (ER) | payer MEDICAID, SELFPAY ==
[2023-11-15 12:40] VITALS: BP 150/64; PULSE 99; RESP 20; TEMP 36.7; O2SAT 95; BMI 41.1
[2023-11-15 13:19] LABS: Basophils # 0.1 K/mm3 (0-0.2); Basophils % 0.7 % (0.1-2.0); Eosinophils # 0.2 K/mm3 (0.0-0.4); Eosinophils % 1.3 % (0.1-12.0); Hematocrit 40.9 % (37.0-47.0); Lymphocytes # 1.9 K/mm3 (0.7-4.5); Lymphocytes % 11.9 % (10-50); Mean Corpuscular HGB Conc 31.7 g/dL (31.8-35.4); Mean Corpuscular Hemoglobin 30.3 pg (27.0-31.2); Mean Corpuscular Volume 95.5 fl (81-99); Mean Platelet Volume 7.9 fl (7.4-10.4); Monocytes # 1.1 K/mm3 (0.1-1.0); Monocytes % 6.6 % (1.7-9.3); Neutrophils # 12.9 K/mm3 (1.8-7.8); Neutrophils % 79.5 % (37.0-80.0); Platelet Count 455 K/mm3 (142-424); Red Blood Count 4.29 M/mm3 (4.20-5.40); Red Cell Distribution Width 14.7 % (11.5-17.5); White Blood Count 16.2 K/mm3 (4.8-10.8)
[2023-11-15 13:22] LABS: Chloride 106 mmol/L (98-107); Sodium 141 mmol/L (136-145)
[2023-11-15 13:23] LABS: Potassium 4.3 mmoL/L (3.5-5.1)
[2023-11-15 13:25] LABS: Alanine Aminotransferase 33 U/L (12-78); Albumin Level 3.9 g/dl (3.5-5.0); Alkaline Phosphatase 117 U/L (38-126); Anion Gap 13.3 mEq/L (5-15); Aspartate Amino Transferase 33 U/L (14-36); Bilirubin,Total 0.6 mg/dl (0.2-1.3); Blood Urea Nitrogen 18 mg/dl (7-17); Carbon Dioxide 26 mmol/L (22.0-30.0); Creatinine Clearance Estimated 100 mL/min (50-200); Estimated Glomerular Filt Rate 52 ml/min (>60); GFR (African American) 63 ML/MIN (>60); Total Protein,Serum 7.9 g/dl (6.3-8.2)
[2023-11-15 13:26] LABS: Calcium 9.8 mg/dl (8.4-10.2); Glucose 105 mg/dl (74-100)
[2023-11-15 13:39] LABS: Lactic Acid 1.3 mmol/L (0.7-2.1); MANUAL DIFFERENTIAL MANUAL DIFFERENTIAL (MANUAL DIFF)
--- NOTE | 2023-11-15 13:51 | CT_ITS ---
FINAL REPORT TECHNIQUE: After the administration of intravenous contrast, axial images were obtained through the abdomen and pelvis by computed tomography. The study was performed with techniques to keep radiation dose as low as reasonably achievable, (ALARA). Individual dose reduction techniques using automated exposure control or adjustment of mA and/or kV according to the patient's size were employed. CLINICAL HISTORY: endometrial cancer, D C 3w ago, RLQ pain COMPARISON: 10/01/2023 FINDINGS: Abdomen: No acute density is seen within the lung bases. Solid abdominal organs are unremarkable. Status post cholecystectomy. No bowel obstruction is present. There is no free air. No fluid collection is seen. There is no adenopathy. Pelvis: Severe inflammatory changes in the right lower quadrant. The appendix is normal. No bowel wall thickening is present. Complex fluid collection within the pelvis is partially loculated and eccentric to the right. Largest component measures 8.0 x 5.9 cm. This could represent abscess or hematoma. This displaces the uterus to the left. The ovaries are not discretely visualized. IMPRESSION: Interval development of multiloculated fluid collection in the right pelvis within the right adnexa which may represent abscess or hematoma with mild surrounding inflammation. Normal appendix. Reviewed, Interpreted and Dictated by Jose Trevizo MD Transcribed by Shellie Romero Authenticated and [facility]
--- NOTE | 2023-11-15 13:53 | HMH.EDGENADL ---
Discharge Plan Disposition Patient Disposition: Xfer Short-Term Hosp Chief Complaint: Abdominal Pain Prescriptions Prescriptions: No Action fluticasone propionate [Flovent HFA] 220 mcg/actuation HFA aerosol inhaler 1 puff inhalation BID latanoprost 0.005 % drops 1 drp Eye-Both HS Patient Comments: INSTILL 1 DROP INTO BOTH EYES EVERY DAY AT BEDTIME polyethylene glycol 3350 17 gram/dose powder 17 g PO NEEDED PRN (Reason: Constipation) Patient Comments: TAKE 17 GRAMS MIXED IN LIQUID DIRECTED TWICE A DAY Dupixent Pen 300 mg/2 mL pen injector 300 mg SQ WEEKLY albuterol sulfate [ProAir HFA] 90 mcg/actuation HFA aerosol inhaler 2 puff IH Q6H PRN (Reason: SOA) 30 Days Qty: 6.7 2RF budesonide-formoterol [Symbicort] 160-4.5 mcg/actuation HFA aerosol inhaler 2 puff IH DAILY 30 Days Qty: 10.2 2RF tiotropium bromide [Spiriva with HandiHaler] 18 mcg capsule, w/inhalation device 1 cap IH DAILY 30 Days Qty: 30 2RF Rx Instructions: puncture 1 cap using device; one dose = 2 inhalations montelukast 10 mg tablet 10 mg PO DAILY fluticasone furoate 50 mcg/actuation blister with device 1 mcg IH DAILY cetirizine [All Day Allergy (cetirizine)] 10 mg tablet 10 mg PO DAILY PRN (Reason: Allergy Symptoms) lubiprostone [Amitiza] 24 mcg capsule 24 mcg PO DAILY dantrolene 100 mg capsule 100 mg PO TID Patient Comments: TAKE 1 CAPSULE BY MOUTH THREE TIMES A DAY baclofen 10 mg tablet 10 mg PO TID Patient Comments: TAKE 1 TABLET BY MOUTH THREE TIMES A DAY pantoprazole 40 mg tablet,delayed release (DR/EC) 40 mg PO BID Patient Comments: TAKE 1 TABLET (40 MG TOTAL) BY MOUTH 2 (TWO) TIMES A DAY BEFORE MEALS. DO NOT CRUSH, CHEW, OR SPLIT. aspirin 325 mg tablet,delayed release (DR/EC) 325 mg PO DAILY Patient Comments: TAKE 1 TABLET BY MOUTH EVERY DAY Botox 100 unit recon soln 1 unit SQ [id number] fluticasone propionate 50 mcg/actuation spray,suspension 2 spray intranasal DAILY rosuvastatin 10 mg tablet 10 mg PO DAILY Qty: 30 2RF ibuprofen 800 mg tablet 800 mg PO Q8H PRN (Reason: pain) Qty: 20 0RF hydrocodone-acetaminophen 5-325 mg tablet 1 tab PO Q6H PRN (Reason: pain) Qty: 8 0RF Referrals Follow up/Referrals: Harlan Elena MD [Primary Care Provider] - See instructions Clinical Impressions Clinical Impression: Malignancy, Abdominal fluid collection Instructions Patient Instructions: DI for Acute Abdominal Pain Discharge ED Provider: Garrett Palacios General Adult HPI <Garrett Palacios MD - Last Filed: 11/15/23 15:46> General Chief complaint: Abdominal Pain Stated complaint: Fever, abd pain Time Seen by Provider: 11/15/23 13:00 Mode of Arrival: Wheelchair Source of Information: Patient Limitations: No Limitations Description of Symptoms (Recalled from ER Triage Doc. by RN): Patient presents to ED with complaints of lower abdominal pain for one week and fever for 3 days. Reports pain is in middle of abdomen and radiates to right lower quadrant. Patient unsure how high fever has been. Patient states she had DNC on October 27. History of Present Illness HPI narrative: Patient is a 53-year-old female with past medical history of recently diagnosed endometrial adenocarcinoma status post D&C 3 weeks ago, referred to [facility] pending definitive management who presents emergency department for evaluation abdominal pain. Over the last few days patient has had abdominal pain that is worse in her right lower quadrant, subjective fevers unknown how high. Due to persistent pain she presents here for continued evaluation, no reports of vaginal bleeding or discharge. Per chart review patient has past medical history of asthma. D&C was conducted on . Related Data Home Medications Medication Instructions Recorded Confirmed cetirizine 10 mg tablet (All Day 10 mg PO DAILY PRN Allergy Symptoms 02/28/22 11/06/23 Allergy (cetirizine)) fluticasone furoate 50 1 mcg inhalation DAILY COPD 02/28/22 11/06/23 mcg/actuation blister powder for inhalation lubiprostone 24 mcg capsule 24 mcg PO DAILY IBS 02/28/22 11/06/23 (Amitiza) montelukast 10 mg tablet 10 mg PO DAILY 02/28/22 11/06/23 aspirin 325 mg tablet,delayed 325 mg PO DAILY 10/11/22 11/06/23 release baclofen 10 mg tablet 10 mg PO TID 10/11/22 11/06/23 dantrolene 100 mg capsule 100 mg PO TID 10/11/22 11/06/23 onabotulinumtoxinA 100 unit 1 unit SQ [id number] 10/11/22 11/06/23 solution for injection (Botox) pantoprazole 40 mg tablet,delayed 40 mg PO BID 10/11/22 11/06/23 release fluticasone propionate 220 1 puff inhalation BID copd 10/25/22 11/06/23 mcg/actuation HFA aerosol inhaler (Flovent HFA) latanoprost 0.005 % eye drops 1 drp Eye-Both HS 02/28/23 11/06/23 fluticasone propionate 50 2 spray intranasal DAILY 05/03/23 11/06/23 mcg/actuation nasal spray,suspension dupilumab 300 mg/2 mL subcutaneous 300 mg SQ WEEKLY 06/28/23 11/06/23 pen injector ([employer]) polyethylene glycol 3350 17 17 g PO NEEDED PRN Constipation 06/28/23 11/06/23 gram/dose oral powder Previous Rx's Medication Instructions Recorded hydrocodone 5 mg-acetaminophen 325 1 tab PO Q6H PRN pain #8 tabs 10/31/23 mg tablet ibuprofen 800 mg tablet 800 mg PO Q8H PRN pain #20 tabs 10/31/23 rosuvastatin 10 mg tablet 10 mg PO DAILY #30 tabs 11/04/23 albuterol sulfate 90 mcg/actuation 2 puff inhalation Q6H PRN SOA 30 11/06/23 aerosol inhaler (ProAir HFA) days #6.7 grams budesonide-formoterol HFA 160 2 puff inhalation DAILY copd 30 11/06/23 mcg-4.5 mcg/actuation aerosol days #10.2 grams inhaler (Symbicort) tiotropium bromide 18 mcg capsule 1 cap inhalation DAILY 30 days #30 11/06/23 with inhalation device (Spiriva puffs with HandiHaler) Allergies Allergy/AdvReac Type Severity Reaction Status Date / Time No Known Allergies Allergy Verified 11/06/23 14:08 [facility] <Garrett Palacios MD - Last Filed: 11/15/23 15:46> PFS Disclaimer: The information contained in this section may have been updated after the patient was seen, as this information can be updated by other users. Medical History Endometrial adenocarcinoma Endometrioid type, FIGO grade 1 Endometrial thickening on ultrasound Irritable bowel syndrome History of stroke Ovarian cyst Vocal cord polyps Chronic obstructive pulmonary disease Status post CVA Asthma exacerbation Surgical History Status post dilation and curettage Hysteroscopy, D&C on 10/31/23 History of cholecystectomy H/O removal of cyst back and face H/O knee surgery Family History Father Tuberculosis Coronary artery disease Mother Diabetes Hypertension Coronary artery disease Sister Cancer Social History Smoking Status: Current every day smoker tobacco type: cigarettes packs per day: 1 alcohol intake: never substance use type: denies use current occupational status: disabled Travel in the last 8 weeks: None household members: children housing: apartment <Garrett Palacios MD - Last Filed: 11/15/23 15:46> ROS Obtained: Yes Systems reviewed as appropriate & no additional complaints except as documented Physical Exam <Garrett Palacios MD - Last Filed: 11/15/23 15:46> General General appearance: alert and in no apparent distress Head Head exam: atraumatic and normocephalic Eye Eye exam: Present PERRL and EOMI ENT ENT exam: Present mucous membranes moist Neck Neck exam: Present normal inspection Chest Chest inspection: Present normal inspection and symmetric chest wall rise Respiratory Respiratory exam: Present normal lung sounds bilaterally; Absent respiratory distress Cardiovascular Cardiovascular exam: Present regular rate and normal rhythm Abdominal Exam Abdominal exam: Present soft and tenderness (Right lower quadrant) Extremities Exam Extremities exam: Present normal inspection Neurological Exam Neurological exam: Present alert Psychiatric Psychiatric exam: Present normal affect Skin Skin exam: Present warm and dry Medical Decision Making <Garrett Palacios MD - Last Filed: 11/15/23 15:46> Shivam Inquiry Pt receiving controlled substance: No Vital Signs: 11/15/23 12:40 Temperature 98.0 F Temperature Source Oral Pulse Rate [Right] 99 H Respiratory Rate 20 Blood Pressure [Right Arm] 150/64 H Blood Pressure Mean [Right Arm] 92 Blood Pressure Source [Right Arm] Automatic Cuff 02 Sat by Pulse Oximetry 95 Oxygen Delivery Method Room Air Lab Data Lab Results 11/15/23 13:05: WBC 16.2 H, RBC 4.29, Hgb 13.0, Hct 40.9, MCV 95.5, MCH 30.3, MCHC 31.7 L, RDW 14.7, Plt Count 455 H, MPV 7.9, Neut % (Auto) 79.5, Lymph % (Auto) 11.9, [place] % (Auto) 6.6, Eos % (Auto) 1.3, Baso % (Auto) 0.7, Neut # (Auto) 12.9 H, Lymph # (Auto) 1.9, [place] # (Auto) 1.1 H, Eos # (Auto) 0.2, Baso # (Auto) 0.1, Total Counted 100, Neutrophils % (Manual) 70, Lymphocytes % (Manual) 26, Monocytes % (Manual) 2, Eosinophils % (Manual) 2, Platelet Estimate Normal, RBC Morphology Normal, Sodium 141, Potassium 4.3, Chloride 106, Carbon Dioxide 26, Anion Gap 13.3, BUN 18 H, Creatinine 1.10 H, Estimated Creat Clear 100, Estimated GFR 52 L, Est GFR ( Amer) 63, Glucose 105 H, Lactate 1.3, Calcium 9.8, Total Bilirubin 0.6, AST 33, ALT 33, Alkaline Phosphatase 117, Lactate Dehydrogenase 166 L, Total Protein 7.9, Albumin 3.9, Globulin 4.0 H, Albumin/Globulin Ratio 1.0 L, Lipase 117 11/15/23 13:05 11/15/23 13:05 Orders (Tests/Meds): ED MEDICATIONS Generic Name Dose Route Start Last Admin Trade Name Freq PRN Reason Stop Dose Admin Sodium Chloride 10 ml 11/15/23 13:10 Sodium Chloride 0.9% 10ml Flush Syringe IV 12/15/23 13:09 NEEDED PRN Maintain IV Site Discontinued Medications Generic Name Dose Route Start Last Admin Trade Name Freq PRN Reason Stop Dose Admin Acetaminophen 1,000 mg 11/15/23 13:52 11/15/23 14:30 Acetaminophen 1,000mg/100ml Vial IV 11/15/23 13:53 1,000 mg ONCE ONE Administration Lactated Ringer's 1,000 mls @ 999 mls/hr 11/15/23 13:52 11/15/23 14:30 Lactated Ringer's 1000 Ml Bag IV 11/15/23 14:52 999 mls/hr .Q1H1M ONE Administration Piperacillin Sod/Tazobactam 100 mls @ 200 mls/hr 11/15/23 15:43 Sod 4.5 gm/ Sodium Chloride IV 11/15/23 16:12 ONCE ONE Iopamidol 75 ml 11/15/23 14:10 11/15/23 14:13 Iopamidol-370 (76%);100ml Bottle IV 11/15/23 14:11 75 ml ONCE ONE Administration Morphine Sulfate 4 mg 11/15/23 13:52 11/15/23 14:30 Morphine 4mg/Ml Syringe IV 11/15/23 13:53 4 mg ONCE ONE Administration Sodium Chloride 10 ml 11/15/23 14:10 11/15/23 14:13 Sodium Chloride 0.9% 10ml Syr (Rad Only) IV 11/15/23 14:11 10 ml ONCE ONE Administration ORDERS Category Date Time Status CT abdomen pelvis w con Stat Cat Scan 11/15/23 13:51 Completed CMP [Comprehensive Metabolic Panel] Stat Lab 11/15/23 13:05 Completed Complete Blood Count Auto Diff Stat Lab 11/15/23 13:05 Completed LDH [Lactate Dehydrogenase] Stat Lab 11/15/23 13:05 Completed Lactic Acid Stat Lab 11/15/23 13:05 Completed Lipase Stat Lab 11/15/23 13:05 Completed UA [Urinalysis and Microscopic] Stat Lab 11/15/23 13:51 Ordered Medical Decision Narrative: In summary patient is a 53-year-old female past medical history described above who presents emergency department for evaluation of right lower quadrant abdominal pain in the setting of endometrial adenocarcinoma status post D&C pending definitive therapy at [facility] cancer center at [facility]. Patient is hemodynamically stable nontoxic-appearing upon arrival, afebrile, borderline tachycardia. Differential diagnosis includes worsening malignancy, intra-abdominal fluid collection, appendicitis, among others. Workup will be conducted with hematologic labs, urinalysis, CT abdomen pelvis IV contrast. Initial inventions include crystalloid bolus, Tylenol, morphine. Initial workup reviewed by me, leukocytosis 16.2, thrombocytosis, no critical electrolyte abnormality. CT imaging of the abdomen and pelvis shows multiloculated fluid collection in the right pelvis within the right adnexa which may represent abscess or hematoma with surrounding inflammation, normal appendix. At time of transfer of care to Dr. Leigh patient will be started on Zosyn. Workup will be sent to [facility] as patient will likely require transfer there given that she is established. This conversation and subsequent transfer was pending at time of transfer of care to Dr. Leigh. <Amador Leigh MD - Last Filed: 11/15/23 16:21> Vital Signs: 11/15/23 12:40 Temperature 98.0 F Temperature Source Oral Pulse Rate [Right] 99 H Respiratory Rate 20 Blood Pressure [Right Arm] 150/64 H Blood Pressure Mean [Right Arm] 92 Blood Pressure Source [Right Arm] Automatic Cuff 02 Sat by Pulse Oximetry 95 Oxygen Delivery Method Room Air Lab Data Lab Results 11/15/23 13:05: WBC 16.2 H, RBC 4.29, Hgb 13.0, Hct 40.9, MCV 95.5, MCH 30.3, MCHC 31.7 L, RDW 14.7, Plt Count 455 H, MPV 7.9, Neut % (Auto) 79.5, Lymph % (Auto) 11.9, [place] % (Auto) 6.6, Eos % (Auto) 1.3, Baso % (Auto) 0.7, Neut # (Auto) 12.9 H, Lymph # (Auto) 1.9, [place] # (Auto) 1.1 H, Eos # (Auto) 0.2, Baso # (Auto) 0.1, Total Counted 100, Neutrophils % (Manual) 70, Lymphocytes % (Manual) 26, Monocytes % (Manual) 2, Eosinophils % (Manual) 2, Platelet Estimate Normal, RBC Morphology Normal, Sodium 141, Potassium 4.3, Chloride 106, Carbon Dioxide 26, Anion Gap 13.3, BUN 18 H, Creatinine 1.10 H, Estimated Creat Clear 100, Estimated GFR 52 L, Est GFR ( Amer) 63, Glucose 105 H, Lactate 1.3, Calcium 9.8, Total Bilirubin 0.6, AST 33, ALT 33, Alkaline Phosphatase 117, Lactate Dehydrogenase 166 L, Total Protein 7.9, Albumin 3.9, Globulin 4.0 H, Albumin/Globulin Ratio 1.0 L, Lipase 117 Orders (Tests/Meds): ED MEDICATIONS Generic Name Dose Route Start Last Admin Trade Name Freq PRN Reason Stop Dose Admin Sodium Chloride 10 ml 11/15/23 13:10 Sodium Chloride 0.9% 10ml Flush Syringe IV 12/15/23 13:09 NEEDED PRN Maintain IV Site Discontinued Medications Generic Name Dose Route Start Last Admin Trade Name Freq PRN Reason Stop Dose Admin Acetaminophen 1,000 mg 11/15/23 13:52 11/15/23 14:30 Acetaminophen 1,000mg/100ml Vial IV 11/15/23 13:53 1,000 mg ONCE ONE Administration Lactated Ringer's 1,000 mls @ 999 mls/hr 11/15/23 13:52 11/15/23 14:30 Lactated Ringer's 1000 Ml Bag IV 11/15/23 14:52 999 mls/hr .Q1H1M ONE Administration Piperacillin Sod/Tazobactam 100 mls @ 200 mls/hr 11/15/23 15:43 Sod 4.5 gm/ Sodium Chloride IV 11/15/23 16:12 ONCE ONE Iopamidol 75 ml 11/15/23 14:10 11/15/23 14:13 Iopamidol-370 (76%);100ml Bottle IV 11/15/23 14:11 75 ml ONCE ONE Administration Morphine Sulfate 4 mg 11/15/23 13:52 11/15/23 14:30 Morphine 4mg/Ml Syringe IV 11/15/23 13:53 4 mg ONCE ONE Administration Sodium Chloride 10 ml 11/15/23 14:10 11/15/23 14:13 Sodium Chloride 0.9% 10ml Syr (Rad Only) IV 11/15/23 14:11 10 ml ONCE ONE Administration ORDERS Category Date Time Status CT abdomen pelvis w con Stat Cat Scan 11/15/23 13:51 Completed CMP [Comprehensive Metabolic Panel] Stat Lab 11/15/23 13:05 Completed Complete Blood Count Auto Diff Stat Lab 11/15/23 13:05 Completed LDH [Lactate Dehydrogenase] Stat Lab 11/15/23 13:05 Completed Lactic Acid Stat Lab 11/15/23 13:05 Completed Lipase Stat Lab 11/15/23 13:05 Completed UA [Urinalysis and Microscopic] Stat Lab 11/15/23 13:51 Ordered Medical Decision Narrative: In summary patient is a 53-year-old female past medical history described above who presents emergency department for evaluation of right lower quadrant abdominal pain in the setting of endometrial adenocarcinoma status post D&C pending definitive therapy at [facility] cancer center at [facility]. Patient is hemodynamically stable nontoxic-appearing upon arrival, afebrile, borderline tachycardia. Differential diagnosis includes worsening malignancy, intra-abdominal fluid collection, appendicitis, among others. Workup will be conducted with hematologic labs, urinalysis, CT abdomen pelvis IV contrast. Initial inventions include crystalloid bolus, Tylenol, morphine. Initial workup reviewed by me, leukocytosis 16.2, thrombocytosis, no critical electrolyte abnormality. CT imaging of the abdomen and pelvis shows multiloculated fluid collection in the right pelvis within the right adnexa which may represent abscess or hematoma with surrounding inflammation, normal appendix. At time of transfer of care to Dr. Leigh patient will be started on Zosyn. Workup will be sent to [facility] as patient will likely require transfer there given that she is established. This conversation and subsequent transfer was pending at time of transfer of care to Dr. Leigh. Reese: I assumed primary responsibility for this patient after signout from previous physician. I spoke to [facility] and patient graciously excepted under the care of Dr. Brown. Out of concern for abscess, patient given 1 dose of Zosyn. After shared decision-making and conversation about transport, patient feels comfortable going via private vehicle to [facility], I feel this is appropriate given her hemodynamics. Patient remained hemodynamically stable during entire stay in the emergency department prior to transfer via POV. Critical Care <Garrett Palacios MD - Last Filed: 11/15/23 15:46> Critical Care Time Critical Care Time: No
[2023-11-15 14:01] LABS: Lactate Dehydrogenase 166 U/L (313-618); Lipase 117 U/L (23-300)
--- NOTE | 2023-11-15 14:08 | PC.NURSE ---
pt to ct scan via wheelchair
[2023-11-15] MEDS: IOPAMIDOL-370 (76%);100ML BOTTLE 75 ML IV (14:13)
[2023-11-15] MEDS: SODIUM CHLORIDE 0.9% 10ML SYR (RAD ONLY) 10 ML IV (14:13)
[2023-11-15] MEDS: MORPHINE 4MG/ML SYRINGE 4 MG IV (14:30)
[2023-11-15] MEDS: LACTATED RINGERS 1000ML 1,000 ML 999 ML IV (14:30)
[2023-11-15] MEDS: ACETAMINOPHEN 1,000MG/100ML VIAL 1000 MG IV (14:30)
[2023-11-15 15:31] LABS: Eosinophils % 2 % (0-3); Lymphocytes % 26 % (10-50); Monocytes % 2 % (2-9); Neutrophils % 70 % (42-76); Platelet Estimate Normal; RBC Morphology Normal; Total Cells Counted 100
--- NOTE | 2023-11-15 15:41 | PC.NURSE ---
Radiology notified to [facility] to [facility] and prepare a disc
--- NOTE | 2023-11-15 15:44 | PC.NURSE ---
Called [facility] about this pt being transferred per Dr Leigh. [facility] advised they would submit the request and would call us back
--- NOTE | 2023-11-15 15:49 | PC.NURSE ---
called back and speaking with Dr Leigh now
--- NOTE | 2023-11-15 16:14 | PC.NURSE ---
[facility] callee back and advised that the pt could come and she would be in rm [id number] at [facility]
[2023-11-15] MEDS: PIPERACILLIN/TAZO 4.5 GM in 0.9 % SODIUM CHLORIDE 100 ML IV (16:22)
[2023-11-15 16:26] VITALS: BP 134/76; PULSE 85; O2SAT 95
--- NOTE | 2023-11-15 16:38 | PC.NURSE ---
Called report to [phone].
[2023-11-15 17:15] VITALS: BP 135/75; PULSE 88; RESP 15; TEMP 36.7
== END 2023-11-15 17:17 | disposition short-term general hospital (02) ==
PROVIDERS: Emergency Provider Emergency Medicine; PCP Family Medicine
DX: R10.31 Right lower quadrant pain (principal); R50.9 Fever, unspecified; R18.8 Other ascites; C54.1 Malignant neoplasm of endometrium; F17.210 Nicotine dependence, cigarettes, uncomplicated; J44.9 Chronic obstructive pulmonary disease, unspecified; Z90.710 Acquired absence of both cervix and uterus
CPT/HCPCS: 74177; 80053; 83605; 83615; 83690; 85007; 85025; 96361; 96365; 96375; 99285; J0131; J2543; Q9967

== ENCOUNTER 2024-04-21 16:52 | Outpatient (CLI) | payer MEDICAID, SELFPAY | END 2024-04-21 23:59 | disposition home or self-care (01) | LOC: LAB.DROPOF 16:52 | PROVIDERS: PCP Family Medicine; Visit Provider Family Medicine | DX: R49.0 Dysphonia (principal) | CPT/HCPCS: 87070; 87077; 87186 ==

== ENCOUNTER 2025-05-27 12:44 | Outpatient (CLI) | payer MEDICAID, SELFPAY ==
--- OUTSIDE RECORDS SUMMARY | 2025-03-27 10:30 | XMS_ITS | Encounter Summary ---
Author Organization [employer] ([place], [place], [place], [place], [place]) Address [address] [place] [address] Care Team Providers Care Industrial/Organizational Psychologist Name Role Phone Harlan Elena MD Primary Care Provider [phone] Reason for Visit * Reason Comments Spasms * Clinic Procedure (Routine) - Closed Specialty Diagnoses / Procedures Referred By Chriss t Referred To Contact Neurology Diagnoses Hemiplegia, unspecified affecting unspecified side Botox Spasticity 600 Units [facility] B&B Exp: 04/11/2025 Procedures [facility] BOTOX Sola Gil MD [address] [place] [address] Phone: tel: fax: Sola Gil MD [address] [place] [address] Phone: tel: fax: Referral ID Status Reason Start Date Expiration Date Visits Re quested Visits Authorized [id number] Closed 04/11/2024 04/11/2025 5 5 Encounter Details Date Type Department Care Team (Latest Contact Info) Description 03/27/2025 11:30 AM EDT Procedure Visit [facility] Neurology - Guru Lolo [address] [place] [address] Sola Gil MD [address] [place] [address] 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); Cerebrovascular accident (CVA) due to occlusion of right middle cerebral artery (HCC) Social History Tobacco Use Types Packs/Day Years Used Date Smoking Tobacco: Never Assessed Employment Answer Date Recorded Help finding and keeping a job Not on file 0 08/03/2023 Family and Community Support Answer Rey e Recorded Help with Day to Day Activities Not on file 08/03/2023 Feeling Lonely or Isolated Not on file 08/03 Educational Attainment Answer Date Álvaro rded Speak language other than Arabic at home Not on file 08/03/2023 Want help with school or training Not on file 08/03/2023 Substance Use Answer Date Recorded Used prescription meds for non-medical reasons N ot on file 08/03/2023 Used illegal drugs past 12 months Not on file 08/03/2023 Comments Unknown Sex and Gender Information Value Date Recorded Sex Assigned at Not on file Legal Sex Female 2:11 PM CDT Gender Identity Not on file Sexual Orientation Not on file documented as of this encounter Last Filed Vital Signs Vital Sign Reading Time Taken Comments Blood Pressure - - Pulse - - Temperature - - Respiratory Rate - - Oxygen Saturation - - Inhaled Oxygen Concentration - - Weight 104.3 kg (230 lb) 03/30/2025 1:07 PM EDT Height - - Body Mass Index - - documented in this encounter Progress Notes * Sola Gil MD - 03/27/2025 11:30 AM EDT Melia Whitley is a 54 y.o. female that presents with Spasms Procedures Limbs/Trunk Botulinum Injection Date/Time: 03/27/2025 Performed by: Sola Gil MD Authorized by: Sola Gil MD Consent: Consent obtained: Written Consent given by: Patient Risks discussed: Weakness, pain, infection and bleeding Procedure details: EMG used?: Yes, to localize and grade level of spasticity Ultrasound used: Yes, to localize the appropriate muscles and to be able to see individual fingers to improve spasticity and finger flexors Diluted by: Preservative free saline Toxin (Brand): OnaBoNT-A (Botox) Concentration (u/mL): 100 Total number of units available: 600 Upper extremity - hand: Left flexor pollicis brevis: 25 units divided amongst 1 site(s) Left lumbricals: 25 units divided amongst 3 site(s) Upper extremity - forearm: Left flexor digitorum profundus: 125 units divided amongst 2 site(s) Left flexor digitorum superficialis: 100 units divided amongst 2 site(s) Left pronator teres: 50 units divided amongst 1 site(s) Upper extremity - upper arm: Left triceps: 100 units divided amongst 3 site(s) Lower extremity - leg: Left lateral head gastrocnemius: 75 units divided amongst 2 site(s) Left medial head gastrocnemius: 75 units divided amongst 2 site(s) Left tibialis posterior: 25 units divided amongst 1 site(s) Total units injected: 600 Total units wasted: 0 Post-procedure details: Patient tolerance of procedure: Tolerated well, no immediate complications Comments: Buy and Bill LOT # [id number], exp 09/2027 x 3 vials Ms. Whitlye has spasticity. She responds very well to Botox injections. She still has significant spasticity in her finger flexors. Therefore ultrasound was used to help localize the individual finger fascicles to improve her symptoms. She will continue baclofen Return in about 12 weeks (around 06/19/2025) for botox. documented in this encounter Miscellaneous Notes * Addendum Note - Silva Lucio - 03/27/2025 11:30 AM EDTAddended by: SILVA LUCIO on: 03/30/2025 01:12 PM Modules accepted: Orders documented in this encounter Plan of Treatment Upcoming Encounters Date Type Department Care Team (Late st Contact Info) Description 06/26/2025 11:30 AM EST Procedure Visit [facility] Neurology - Guru Lolo [address] [facility] [address] [place] [address] Sola Gil MD [address] [facility] [address] [place] [address] documented as of this encounter Visit Diagnoses Diagnosis Spastic hemiplegia affecting nondominant side (HCC)- Primary Spastic hemiplegia affecting nondominant side Cerebrovascular accident (CVA) due to occlusion of right middle cerebral artery (HCC) documented in this encounter Administered Medications Inactive Administered Medications - up to 3 most recent administrations Medication Order MAR Action Action Date Dose Rate Site botulinum toxin type A (BOTOX) injection 600 Units 600 Units Once, intraMUSCULAR, On Sun03/27/25 at 0000, For 1 doseIndications:Spastic hemiplegia affecting nondominant side (HCC) Given by Other 03/27/2025 11:45 AM EDT 600 Units Other documented in this encounter Care Teams Industrial/Organizational Psychologist Relationship Specialty Start Date End Date Harlan Elena MD [address] [place] [address] PCP - General Family Medicine 09/21/22 documented as of this encounter
--- OUTSIDE RECORDS SUMMARY | 2025-05-27 12:48 | XMS_ITS | Encounter Summary ---
Author Organization Healthcare Address [address] [place] [address] Care Team Providers Care President Mortgage Company Name Role Phone Harlan Elena MD Primary Care Provider Kelly Forbes DO Unavailable [phone] Marisa Anna MD Unavailable [phone] Reason for Visit * Reason Comments Med Refill Encounter Details Date Type Department Care Team ([facility] Contact Info) Description 02/22/2023 Refill [place] [facility] Special[facility] [address] [place] [address] Kemar Storey MD [address] [place] [address] Asthma-COPD overlap syndrome (CMS/HCC); Allergic rhinitis, unspecified seasonality, unspecified trigger Social History Tobacco Use Types Packs/Day Years Used Date Smoking Tobacco: Every Day Cigarettes 0.3 44.9 Started: 1980 Smokeless Tobacco: Never Alcohol Use Standard Drinks/Week Comments Not Currently 0 (1 standard drink = 0.6 oz pur e alcohol) PHQ-2 Answer Date Recorded Patient Health Questionnaire-2 Score 0 02/20/2023 PHQ-2A Answer Date Recorded Patient Health Questionnaire-2 Score 0 02/20/2023 Comments Unknown Sex and Gender Information Value Date Recorded Sex Assigned at Not on file Legal Sex Female 7:33 PM EDT Gender Identity Not on file Sexual Orientation Not on file documented as of this encounter Miscellaneous Notes * Telephone Encounter - Shi Washington RN - 02/22/2023 6:57 AM EDT Patient recently seen on 02/20/2023 and has a follow up in May. documented in this encounter Plan of Treatment Upcoming Encounters Date Type Department Care Team (Late st Contact Info) Description 09/08/2025 3:30 PM EST Ancillary Procedure [facility] Medicine Specialties [address] [place] [address] 09/08/2025 4:00 PM EST Office Visit [place] [address] [place] [address] Kemar Storey MD [address] [facility] [address] [place] [address] 09/08/2025 4:00 PM EST Ancillary Procedure [facility] [address] [place] [address] 09/09/2025 12:00 PM EST Appointment [facility] [address] [place] [address] 09/09/2025 2:45 PM EST Office Visit [facility]ne[facility] [address] [place] [address] Demi Slater MD [address] [place] [address] 03/19/2026 9:00 AM EDT Appointment [facility] [address] [place] [address] Marisa Anna MD [address] [place] [address] documented as of this encounter Visit Diagnoses Diagnosis Asthma-COPD overlap syndrome (CMS/HCC) Allergic rhinitis, unspecified seasonality, unspecified trigger documented in this encounter Additional Health Concerns Assessment Noted Time A fall risk assessment has been complete d for the patient 02/20/2023 4:00 PM EDT A Body Mass Index follow-up plan has been documented for the patient 02/20/2023 5:02 PM EDT documented as of this encounter Care Teams President Mortgage Company Relationship Specialty Start Date End Date Harlan Elena MD PCP - General Family Medicine 04/11/22 Kelly Donald DO [address] [place] [address] Referring Physician Obstetrics and Gynecology 11/06/23 Marisa Anna MD [address] [facility] [address] [place] [address] Consulting Physician Radiation Oncology 12/14/23 documented as of this encounter
--- OUTSIDE RECORDS SUMMARY | 2025-05-27 12:48 | XMS_ITS | Encounter Summary ---
Author Organization [facility] Address [address] [place] [address] Care Team Providers Care Tool And Gauge Inspector Name Role Phone Harlan Elena MD Primary Care Provider Kelly Forbes DO Unavailable [phone] Marisa Anna MD Unavailable [phone] Reason for Visit * Reason Comments Med Refill Encounter Details Date Type Department Care Team ([facility] Contact Info) Description 01/22/2023 Refill [facility] Medicine Specialties [address] [place] [address] Kemar Storey MD [address] [facility] [address] [place] [address] Asthma-COPD overlap syndrome (CMS/HCC); Allergic rhinitis, unspecified seasonality, unspecified trigger Social History Tobacco Use Types Packs/Day Years Used Date Smoking Tobacco: Every Day Cigarettes 1 44.9 Started: 1981 Smokeless Tobacco: Never Alcohol Use Standard Drinks/Week Comments Not Currently 0 (1 standard drink = 0.6 oz pur e alcohol) PHQ-2 Answer Date Recorded Patient Health Questionnaire-2 Score 0 04/11/2022 Comments Unknown Sex and Gender Information Value Date Recorded Sex Assigned at Not on file Legal Sex Female 7:33 PM EDT Gender Identity Not on file Sexual Orientation Not on file documented as of this encounter Plan of Treatment Upcoming Encounters Date Type Department Care Team (Late Contact Info) Description 09/08/2025 3:30 PM EST Ancillary Procedure [facility] Medicine Specialties [address] [place] [address] 09/08/2025 4:00 PM EST Office Visit [facility] Medicine Specialties [address] [place] [address] Kemar Storey MD [address] [place] [address] 09/08/2025 4:00 PM EST Ancillary Procedure [facility] Specialties [address] [place] [address] 09/09/2025 12:00 PM EST Appointment [facility] [address] [place] [address] 09/09/2025 2:45 PM EST Office Visit [facility] [address] [place] [address] Demi Slater MD [address] [place] [address] 03/19/2026 9:00 AM EDT Appointment [facility] [address] [place] [address] Marisa Anna MD [address] [place] [address] documented as of this encounter Visit Diagnoses Diagnosis Asthma-COPD overlap syndrome (CMS/HCC) Allergic rhinitis, unspecified seasonality, unspecified trigger documented in this encounter Additional Health Concerns Assessment Noted Time A fall risk assessment has been complete d for the patient 10/17/2022 3:36 PM EDT A Body Mass Index follow-up plan has been documented for the patient 10/17/2022 4:04 PM EDT documented as of this encounter Care Teams Tool And Gauge Inspector Relationship Specialty Start Date End Date Harlan Elena MD PCP - General Family Medicine 04/11/22 Kelly Donald DO [address] [place], [place] [address] Referring Physician Obstetrics and Gynecology 11/06/23 Marisa Anna MD [address] [facility] [address] [place] [address] Consulting Physician Radiation Oncology 12/14/23 documented as of this encounter
--- OUTSIDE RECORDS SUMMARY | 2025-05-27 12:48 | XMS_ITS | Encounter Summary ---
Author Organization [facility] Address [address] [place] [address] Care Team Providers Care Student Teaching Coordinator Name Role Phone Harlan Elena MD Primary Care Provider Kelly Forbes DO Unavailable [phone] Marisa Anna MD Unavailable [phone] Encounter Details Date Type Department Care Team ([facility] Contact Info) Description 11/08/2023 Lab Requisition [facility] [address] [place] [address] Demi Slater MD [address] [facility] [address] [place] [address] Postmenopausal bleeding Social History Tobacco Use Types Packs/Day Years Used Date Smoking Tobacco: Every Day Cigarettes 0.3 44.9 Started: 1980 Smokeless Tobacco: Never Alcohol Use Standard Drinks/Week Comments Not Currently 0 (1 standard drink = 0.6 oz pur e alcohol) PHQ-2 Answer Date Recorded Patient Health Questionnaire-2 Score 0 11/09/2023 PHQ-2A Answer Date Recorded Patient Health Questionnaire-2 Score 1 06/12/2023 Comments Unknown Sex and Gender Information Value Date Recorded Sex Assigned at Not on file Legal Sex Female 7:33 PM EDT Gender Identity Not on file Sexual Orientation Not on file documented as of this encounter Functional Status * Over the past 2 weeks, how often have you been bothered by any of the following problems? Question Answer Date of Assessment Author Little interest or pleasure in doing things Not at all 11/09/2023 11:23 AM EDT Skylar Ludwig LPN Feeling down, depressed, or hopeless Not at all 11/09/2023 11:23 AM EDT Skylar Ludwig LPN Patient Health Questionnaire-2 Score 0 11/09/2023 11:23 AM EDT Skylar Ludwig LPN * How difficult have these problems made it for you to do your work, take care of things at home, or get along with other people? Answer Date of Assessment Author Not difficult at all 11/09/2023 11:23 AM EDT Skylar Gallardo LPN documented as of this encounter Plan of Treatment Upcoming Encounters Date Type Department Care Team (Late st Contact Info) Description 09/08/2025 3:30 PM EST Ancillary Procedure [facility] Medicine Specialties [address] [place] [address] 09/08/2025 4:00 PM EST Office Visit [facility] Medicine Specialties [address] [place] [address] Kemar Storey MD [address] [facility] [address] [place] [address] 09/08/2025 4:00 PM EST Ancillary Procedure [facility] [address] [place] [address] 09/09/2025 12:00 PM EST Appointment [facility] [address] [place] [address] 09/09/2025 2:45 PM EST Office Visit [facility] [address] [place] [address] Demi Slater MD [address] [place] [address] 03/19/2026 9:00 AM EDT Appointment [facility] [address] [place] [address] Marisa Anna MD [address] [place], [place] [address] [place] [address] documented as of this encounter Procedures Procedure Name Priority Date/Time Associated Diagnosis Comments SURGICAL PATHOLOGY CONSULT Routine 11/08/2023 1:07 PM EDT Postmenopausal bleeding documented in this encounter Results * Surgical Pathology Consult (11/08/2023 1:07 PM EDT) Case Report Sugical Pathology Consult Case: [id number] Authorizing Provider: Demi Slater MD Collected: 11/08/2023 1307 Ordering Location: [facility] Lab Received: 11/08/2023 1307 Pathologist: Eric Minaya DO Specimen: Endometrium, [id number] 11/13/2023 12:04 PM EDT [facility] Final Diagnosis A. Uterus, endometrial curettage ([id number]; 10/31/23): - ENDOMETRIOID CARCINOMA, FIGO Grade 1, with associated squamous keratinizing metaplasia - Tumor is p53 wild-type and demonstrates retained nuclear expression of MLH1, PMS2, MSH2, and MSH6 by IHC (reviewed) 11/13/2023 12:04 PM EDT [facility] at 1204 EDT Clinical Information N95.0 - Postmenopausal bleeding [ICD-10-CM] 11/13/2023 12:04 PM EDT [facility] Gross Description A. [id number] Received along with a corresponding pathology report from [facility] are 19 slides labeled outside case: [id number] collected on 10/31/2023. 11/13/2023 12:04 PM EDT [facility] Note: A resident was involved in the service. I attest I examined the relevant preparations for the specimens and confirmed the diagnosis or interpretation. 11/13/2023 12:04 PM EDT [facility] Tissue Endometrial structure / Unknown 11/08/2023 1:07 PM EDT 11/08/2023 1:07 PM EDT us Demi Slater MD LAB PATHOLOGY ORDERABLES Final Result [facility] [address] [place] [address] documented in this encounter Visit Diagnoses Diagnosis Postmenopausal bleeding documented in this encounter Additional Health Concerns Assessment Noted Time A fall risk assessment has been complete d for the patient 06/12/2023 4:00 PM EST A Body Mass Index follow-up plan has been documented for the patient 06/27/2023 8:57 AM EST documented as of this encounter Care Teams Student Teaching Coordinator Relationship Specialty Start Date End Date Harlan Elena MD PCP - General Family Medicine 04/11/22 Kelly Donald DO [address] [place] [address] Referring Physician Obstetrics and Gynecology 11/06/23 Marisa Anna MD [address] [facility] [address] [place] [address] Consulting Physician Radiation Oncology 12/14/23 documented as of this encounter
--- OUTSIDE RECORDS SUMMARY | 2025-05-27 12:48 | XMS_ITS | Encounter Summary ---
Author Organization Healthcare Address [address] [place] [address] Care Team Providers Care Charging Plug Placer Name Role Phone Harlan Elena MD Primary Care Provider Kelly Forbes DO Unavailable [phone] Marisa Anna MD Unavailable [phone] Reason for Visit * Reason Comments Med Refill Encounter Details Date Type Department Care Team (Late Contact Info) Description 04/07/2025 Refill [facility] [address], [address] [place] [address] Kemar Storey MD [address] [place] [address] Asthma-COPD overlap syndrome (CMS/HCC) Social History Tobacco Use Types Packs/Day Years Used Date Smoking Tobacco: Every Day Cigarettes 1 43.3 Started: 1980; Last attempted to quit: 11/2023 Passive Smoke Exposure: Current Smokeless Tobacco: Never Alcohol Use Standard Drinks/Week Comments Not Currently 0 (1 standard drink = 0.6 oz pur e alcohol) Humiliation, Afraid, Rape, and Kick questionnair e Answer Date Recorded Within the last year, have y ou been afraid of your partner or ex-partner? No 11/19/2023 Within the last year, have y ou been humiliated or emotionally abused in other ways by your partner or ex-partner? No Within the last year, have y ou been kicked, hit, slapped, or otherwise physically hurt by your partner or ex-partner? No 11/19/2023 Within the last year, have y ou been raped or forced to have any kind of sexual activity by your partner or ex-partner? No 11/19/2023 PHQ-2 Answer Date Recorded Patient Health Questionnaire-2 Score 0 03/20/2025 Hunger Vital Sign Answer Date Recorded Within the past 12 months, y ou worried that your food would run out before you got the money to buy more. Never true 11/19/19 24 Within the past 12 months, t he food you bought just didn't last and you didn't have money to get more. Never true 11/19/2023 PRAPARE - Transportation Answer Date Re corded In the past 12 months, has l ack of transportation kept you from medical appointments or from getting medications? No 12/2023 In the past 12 months, has l ack of transportation kept you from meetings, work, or from getting things needed for daily living? No 11/19/2023 Housing Stability Vital Sign Answer Rey e Recorded In the last 12 months, was t here a time when you were not able to pay the mortgage or rent on time? No 11/19/2023 [address] of [address] Lived in the Last Year Not on f ile 11/19/2023 In the last 12 months, was t here a time when you did not have a steady place to sleep or slept in a custodial (including now)? No 11/19/2023 PHQ-9 Answer Date Recorded Patient Health Questionnaire-9 Score 0 03/20/2025 AUDIT-C Answer Date Recorded Q1: How often do you have a drink containing alcohol? Never 03/03/2025 Q2: How many drinks containi ng alcohol do you have on a typical day when you are drinking? Patient does not drink Q3: How often do you have si x or more drinks on one occasion? Never 03/03/2025 CAGE ASSESSMENT Answer Date Recorded Cage unable to access Not on file 11/15/2023 Cage max number of drinks Not on file 2023 Cage Beverages a week Not on file 11/15/2023 Have you ever felt you should CUT down on your d rinking? 0 11/15/2023 Have you been ANNOYED by people criticizing your drinking? 0 11/15/2023 Have you felt GUILTY about your drinking? 0 11/15/2023 Have you had a drink first t ruth ann in the morning (EYE-OPHTHALMOLOGIST RETINA SPECIALIST) to steady your nerves or to get rid of a hangover? 0 11/15/2023 CAGE Questionnaire Score 0 024 Utilities Answer Date Recorded In the past 12 months has th e electric, gas, oil, or water company threatened to shut off services in your home? No 11/19/2023 PHQ-2A Answer Date Recorded Patient Health Questionnaire-2 Score 1 06/12/2023 Comments No Sex and Gender Information Value Date Recorded Sex Assigned at Not on file Legal Sex Female 7:33 PM EDT Gender Identity Not on file Sexual Orientation Not on file documented as of this encounter Miscellaneous Notes * Telephone Encounter - Darron Guillen PharmD - 04/08/2025 7:57 AM EDT Patient planning to fill with [facility] now. Will decline refill request from [facility]. documented in this encounter Plan of Treatment Upcoming Encounters Date Type Department Care Team (Late st Contact Info) Description 09/08/2025 3:30 PM EST Ancillary Procedure [facility] Medicine Specialties [address], [address] [place] [phone] 09/08/2025 4:00 PM EST Office Visit [facility] Medicine Specialties [address], [address] [place] [phone] Kemar Storey MD [address] [place] [address] 09/08/2025 4:00 PM EST Ancillary Procedure [facility] Medicine Specialties [address] [phone] 09/09/2025 12:00 PM EST Appointment [facility] [address] [place] [address] 09/09/2025 2:45 PM EST Office Visit [facility] [address] [place] [phone] Demi Slater MD [address] [place] [address] 03/19/2026 9:00 AM EDT Appointment [facility] [address] [place] [address] Marisa Anna MD [address] [place] [address] documented as of this encounter Visit Diagnoses Diagnosis Asthma-COPD overlap syndrome (CMS/HCC) documented in this encounter Additional Health Concerns Assessment Noted Time PHQ-9 Depression Total Score: 0 03/20/20 1:46 PM EDT A fall risk assessment has been complete d for the patient 03/04/2025 12:52 PM EDT A Body Mass Index follow-up plan has been documented for the patient 03/03/2025 1:55 PM EDT documented as of this encounter Care Teams Charging Plug Placer Relationship Specialty Start Date End Date Harlan Elena MD PCP - General Family Medicine 04/11/22 Kelly Donald DO [address] [place] [address] Referring Physician Obstetrics and Gynecology 11/06/23 Marisa Anna MD [address] [place] [phone] Consulting Physician Radiation Oncology 12/14/23 documented as of this encounter
--- OUTSIDE RECORDS SUMMARY | 2025-05-27 12:48 | XMS_ITS | Encounter Summary ---
Author Organization [facility] Address [address] [place] [address] Care Team Providers Care Banking Specialist Name Role Phone Harlan Elena MD Primary Care Provider Kelly Forbes DO Unavailable [phone] Marisa Anna MD Unavailable [phone] Reason for Visit * Reason Comments Med Refill Encounter Details Date Type Department Care Team ([facility] Contact Info) Description 02/21/2023 Refill [place] [facility] [address] [place] [address] Kemar Storey MD [address] [place] [address] Asthma-COPD overlap syndrome (CMS/HCC); Allergic [...] Upcoming Encounters Date Type Department Care Team ([facility] Contact Info) Description 09/08/2025 3:30 PM EST Ancillary Procedure [facility] Medicine Specialties [address] [place] [address] 09/08/2025 4:00 PM EST Office Visit [facility] Medicine Specialties [address], [address] [place] [address] Kemar Storey MD [address] [place] [address] 09/08/2025 4:00 PM EST Ancillary Procedure [facility] [address] [place] [address] 09/09/2025 12:00 PM EST Appointment [facility] [address] [place] [phone] 09/09/2025 2:45 PM EST Office Visit [facility] [address] [place] [phone] Demi Slater MD [address] [place] [address] 03/19/2026 9:00 AM EDT Appointment [facility] [id number] [place] [phone] Marisa Anna MD [address] [place] [address] documented as of this encounter [...] documented as of this encounter Care Teams Banking Specialist Relationship Specialty Start Date End Date Harlan Elena MD PCP - General Family Medicine 04/11/22 Kelly Donald DO [address] [place] [address] Referring Physician Obstetrics and Gynecology 11/06/23 Marisa Anna MD [address] [facility] [address] [place] [phone] Consulting Physician Radiation Oncology 12/14/23 documented as of this encounter
--- OUTSIDE RECORDS SUMMARY | 2025-05-27 12:48 | XMS_ITS | Clinical Summary ---
Author Organization [facility] Address [address] [place] [address] Care Team Providers Care Food Runner Name Role Phone Harlan Elena MD Primary Care Provider Kelly Forbes DO Unavailable [phone] Marisa Anna MD Unavailable [phone] Allergies No known active allergies Medications baclofen (Lioresal) 10 MG tablet Take 1 tablet (10 mg) by mouth 3 (three) times a day. 3 Active dantrolene (Dantrium) 100 MG capsule every night. 3 Active Amitiza 24 MCG capsule 2 Active aspirin 81 MG EC tablet Take 1 tablet (81 mg) by mouth every night. Active oxygen (O2) gas Inhale 2 L/min every night at 120,000 mL/hr. via nasal canula Active naloxone (Narcan) 4 mg/0.1 mL nasal spray 1. Give 1 spray in nostril for no/slow breathing or cannot wake after opioid use 2. Call 911 3. Repeat in other nostril if symptoms continue 1 each 4 Active Additional Information Patient not taking.Reported on 03/03/2025 latanoprost (Xalatan) 0.005 % ophthalmic solution Administer 1 drop into both eyes every night. 4 Active polyethylene glycol (PEG 3350) 17 GM/SCOOP powder Take 17 g by mouth if needed. 4 Active rosuvastatin (Crestor) 10 MG tablet Take 1 tablet (10 mg) by mouth 1 (one) time each day in the morning. 4 Active megestrol (Megace) 40 MG tablet TAKE 2 TABLETS BY MOUTH 2 TIMES A DAY. 60 tablet 3 4 Active Additional Information Patient not taking.Reported on 03/03/2025 omeprazole (PriLOSEC) [address] capsule Take 1 capsule by mouth 2 times a day. Do not crush or chew. 60 capsule 11 5 02/27/20 26 Active Budeson-Glycopyr rol-Formoterol (Breztri Aerosphere) 160-9-4.8 MCG/ACT aerosolIndicatio ns:Asthma-COPD overlap syndrome (CMS/HCC) Inhale 2 puffs 2 times a day. Please use with a spacer; Rinse mouth with water after use to reduce aftertaste and incidence of candidiasis. Do not swallow. 10.7 g 5 Active famotidine (Pepcid) 20 MG tabletIndication s:Gastroesophage al reflux disease without esophagitis Take 1 tablet by mouth 2 times a day. 60 tablet 5 03/25/20 26 Active cetirizine (Allergy Relief Cetirizine) 10 MG tabletIndication s:Asthma-COPD overlap syndrome (CMS/HCC),Allerg ic rhinitis, unspecified seasonality, unspecified trigger Take 1 tablet by mouth daily. 30 tablet 5 Active albuterol 108 (90 Base) MCG/ACT inhalerIndicatio ns:Asthma-COPD overlap syndrome (CMS/HCC) Inhale 2 puffs every 6 hours as needed for wheezing. 18 g 5 Active Dupilumab (Dupixent) 300 MG/2ML solution auto-injectorInd ications:Asthma- COPD overlap syndrome (CMS/HCC) Inject 2 mL under the skin every 14 days. 4 mL 5 Active montelukast (Singulair) 10 MG tabletIndication s:Asthma-COPD overlap syndrome (CMS/HCC),Allerg ic rhinitis, unspecified seasonality, unspecified trigger Take 1 tablet by mouth nightly. 30 tablet 5 03/25/20 26 Active Active Problems Problem Noted Date Diagnosed Date ATN (acute tubular necrosis) 11/24/2023 Intra-abdominal abscess 11/24/2023 Endometrial cancer 11/12/2023 Tobacco use disorder 11/09/2023 Severe persistent asthma without complication Morbid obesity with body mass index (BMI) of 40. 0 or higher 04/12/2022 Resolved Problems Problem Noted Date Diagnosed Date Resolved Date Acute encephalopathy 11/24/2023 025 Encephalopathy acute 11/24/2023 025 Encounters Date Type Department Care Team Description 04/07/2025 Refill [facility] Medicine Specialties 0 [facility], [address] [place] [phone] Kemar Storey MD Asthma-COPD overlap syndrome ([facility]) 03/30/2025 Telephone [facility] [address] [place] [address] Elvira Tan, PharmD Dupixent 03/30/2025 Refill [facility] Medicine Specialties 0 [facility], [address] [place] [phone] Kemar Storey MD Gastroesophageal reflux disease without esophagitis; Asthma-COPD overlap syndrome ([facility]); Allergic rhinitis, unspecified seasonality, unspecified trigger 03/30/2025 Telephone [facility] Medicine Specialties [address] [place] [phone] Kemar Storey MD Med Refill 03/20/2025 1:38 PM EDT - 03/20/2025 11:59 PM EDT Hospital Encounter [facility] [id number] [place] [phone] Marisa Anna MD Discharge Disposition: Still a Patient 03/20/2025 Travel 03/17/2025 Telephone [facility] Medicine Specialties [address] [place] [phone] Kemar Storey MD 03/04/2025 2:30 PM EDT Office Visit [facility] [address] [place] [address] Demi Slater MD Endometrial cancer ([facility]) (Primary Dx); H/O: stroke; Tobacco use disorder; Chronic obstructive pulmonary disease, unspecified COPD type ([facility]); MARYAN (obstructive sleep apnea); Asthma, unspecified asthma severity, unspecified whether complicated, unspecified whether persistent; Morbid obesity with body mass index (BMI) of 40.0 or higher ([facility]) 03/04/2025 11:01 AM EDT - 03/04/2025 11:59 PM EDT Hospital Encounter [facility] CT [address] [place] [address] Endometrial cancer ([facility]) Discharge Disposition: Home or Self Care 03/04/2025 Results Follow-Up [facility] Gynecology [address] [place] [phone] Demi Slater MD 03/04/2025 Travel 03/03/2025 3:00 PM EDT Immunization [facility] [address] [place] [phone] Need for shingles vaccine (Primary Dx) 03/03/2025 1:30 PM EDT Ancillary Procedure [facility] Medicine Specialties 0 [facility], [address] [place] [phone] Asthma-COPD overlap syndrome ([facility]) 03/03/2025 1:30 PM EDT Office Visit [facility] Medicine Specialties 0 [facility], [address] [place] [phone] Kemar Storey MD Asthma-COPD overlap syndrome ([facility]) (Primary Dx); Chronic respiratory failure with hypoxia; Gastroesophageal reflux disease without esophagitis; Allergic rhinitis, unspecified seasonality, unspecified trigger; Encounter for immunization 03/03/2025 1:00 PM EDT Ancillary Procedure [facility] Medicine Specialties 0 [facility], [address] [place] [phone] Asthma-COPD overlap syndrome ([facility]) 03/03/2025 Travel from Last 3 Months Immunizations Immunization Administration Dates Next Due Influenza, injectable, quadrivalent 04/24/2018 Influenza, injectable, quadr ivalent, preservative free 05/03/2023,04/12/2022,05/17/2021,07/08,08/14/2017,05/07/2015 Influenza, injectable, quadr ivalent, preservative free, pediatric 08/14/2017 Influenza, seasonal, injectable 07/16/2014 Influenza, seasonal, injecta ble, preservative free 06/10/2024 Pneumococcal 20-marielena Conj Vaccine 06/10/2024 Pneumococcal Conjugate PCV 13 07/08/2019 Pneumococcal Polysaccharide PPV23 05/07/2015 TD (adult), 2 Lf tetanus tox oid, preservative free, adsorbed 07/02/2002 Tdap 05/03/2023 Zoster, Recombinant 03/03/2025 Family History Medical History Relation Name Comments Conversions - Other Father TB (tube rculous cystitis) Asthma Mother belinda fall COPD Mother belinda fall Diabetes Mother belinda fall Cervical cancer Sister Anesthesia problems Neg Hx Malig Hyperthermia Neg Hx Relation Name Status Comments Father Mother belinda fall Sister Social History Tobacco Use Types Packs/Day Years Used Date Smoking Tobacco: Every Day Cigarettes 1 43.3 Started: 1980; Last attempted to quit: 11/2023 Passive Smoke Exposure: Current Smokeless Tobacco: Never Tobacco Cessation:Ready to Q uit: Not Asked; Counseling Given: Not Answered Alcohol Use Standard Drinks/Week Comments Not Currently [...] place to sleep or slept in a snf (including now)? No 11/19/2023 PHQ-9 Answer Date [...] first t ruth ann in the morning (EYE-TRANSIT OPERATOR) to steady your nerves or to get [...] on file Sexual Orientation Not on file Last Filed Vital Signs Vital Sign Reading Time Taken Comments Blood Pressure 114/73 03/20/2025 1:44 PM EDT Pulse 91 03/20/2025 1:44 PM EDT Temperature 36.4 C (97.5 F) 03/04/2025 12:50 PM EDT Respiratory Rate 18 03/20/2025 1:44 PM EDT Oxygen Saturation 91% 03/20/2025 1:44 PM EDT Inhaled Oxygen Concentration - - Weight 112 kg (248 lb) 03/20/2025 1:44 PM EDT Height 162.6 cm (5' 4 ) 03/04/2025 12:50 PM EDT Body Mass Index 42.57 03/04/2025 12:50 PM EDT Plan of Treatment Upcoming Encounters Date Type Department Care Team (Late st Contact Info) Description 09/08/2025 3:30 PM EST Ancillary Procedure [facility] Medicine Specialties [address] [place] [address] 09/08/2025 4:00 PM EST Office Visit [facility] Medicine [facility]ties [address] [place] [phone] Kemar Storey MD [address] [place] [phone] 09/08/2025 4:00 PM EST Ancillary Procedure [facility] Medicine Specialties [address] [place] [phone] 09/09/2025 12:00 PM EST Appointment [facility] [address] [place] [address] 09/09/2025 2:45 PM EST Office Visit [facility] [address] [place] [phone] Demi Slater MD [address] [place] [address] 03/19/2026 9:00 AM EDT Appointment [facility] [id number] [place] [phone] Marisa Anna MD [id number] [place] [phone] Health Maintenance Due Date Last Done Comments [facility]-Infant/Child/Adol SDOH Screenings 1969 [id number] Vaccine (#1) 1974 [facility]- SDOH Screenings 1987 [facility]-Adult SDOH Screenings 1987 [facility]-Hepatitis B Vaccines (1 of 3 - 19+ 3-dose series) 1988 CT Colonography 2014 Colonoscopy 2014 FIT-DNA 2014 FIT 2014 FOBT 2014 Sigmoidoscopy 2014 [facility]-Colorectal Cancer Screening 2014 [facility]-Pap Smear 04/01/2018 04/01/2015 Lung Cancer Screening Shared Decision Making 2019 [facility]-Breast Cancer Screening 2019 [facility]-Cervical Cancer Screening 04/01/2020 [facility]-HPV/Cotest 04/01/2020 04/01/2015 [facility]-Influenza Vaccine (#1) 03/16/202506/10, 05/03/2023, 04/12/2022, Additional history exists [facility]-Zoster Vaccines (2 of 2) 04/28/2025 03/03/2025 [facility]-Lung Cancer Screening 03/04/20262024, 11/19/2023, 10/17/2022, Additional history exists [facility]-Depression Screening 03/20/2026 025, 03/20/2025, 12/20/2021 [facility]-DTaP,Tdap,and Td Vaccines (2 - Td or Tdap) 05/03/2033 05/03/2023, 07/02/2002 [facility]-HIV Screening Completed 03/03/2017 [facility]-Hepatitis C Screening Completed 03/03/2017 [facility]-Diabetes: Hemoglobin A1C Discontinued 11/21/2023, 02/26/2017 [facility]-Pneumococcal Vaccine: 50+ Years Completed 06/10/2024, 07/08/2019, 05/07/2015 [facility]-Obesity Intervention Completed 025, 06/10/2024, 02/05/2024, Additional history exists HPV Vaccines Aged Out No longer eligi ble based on patient's age to complete this topic [facility]-HIB Vaccines Aged Out No longer e ligible based on patient's age to complete this topic [facility]-Hepatitis A Vaccines Aged Out No longer eligible based on patient's age to complete this topic [facility]-IPV Vaccines Aged Out No longer e ligible based on patient's age to complete this topic [facility]-Rotavirus Vaccines Aged Out No lo nger eligible based on patient's age to complete this topic Procedures Procedure Name Priority Date/Time Associated Diagnosis Comments CT ABDOMEN PELVIS W IV CONTRAST Routine 03/04/2025 11:46 AM EDT Endometrial cancer (CMS/HCC) CT CHEST W IV CONTRAST Routine 11:46 AM EDT Endometrial cancer (CMS/HCC) CBC WITH AUTO DIFFERENTIAL Routine 03/03/2025 2:24 PM EDT Asthma-COPD overlap syndrome (CMS/HCC) IMMUNOGLOBULIN E Routine 03/03/2025 2:24 PM EDT Asthma-COPD overlap syndrome (CMS/HCC) HC EVAL OF BRONCHOSPASM Routine 03/03/20 12:55 PM EDT Asthma-COPD overlap syndrome (CMS/HCC) PULM NIOX (ADULT) Routine 03/03/2025 12: 45 PM EDT Asthma-COPD overlap syndrome (CMS/HCC) HEMOGLOBIN A1C Add-On 11/21/2023 12:59 AM EDT ACUTE HEPATITIS PANEL Routine 03/03/2017 2:28 AM EDT HIV 1/2 ANTIBODY/ANTIGEN SCREEN WITH REFLEX TO HIV I/II DIFFERENTIATION Routine 03/03/2017 2:28 AM EDT CYTO DATA CONVERSION Routine 04/01/2015 12:00 AM EDT from Last 3 Months or Most Recently Relevant to Health Maintenance Results * CT Abdomen Pelvis w IV Contrast (03/04/2025 11:46 AM EDT) Anatomical Region Laterality Modality Abdomen, Pelvis Computed Tomogra phy Impressions 03/04/2025 2:51 PM EDT Chest: No evidence of metastatic disease. Abdomen/Pelvis: No evidence of disease progression. CRITICAL RESULT: No. COMMUNICATION: Per this written report. Drafted by Renetta Small MD on 03/04/2025 2:39 PM Final report signed by Renetta Small MD on 03/04/2025 2:51 PM Narrative 03/04/2025 2:51 PM EDT CLINICAL INDICATION: Endometrial Cancer, restaging Stage II, medically inoperable, Grade 1 Endometrial AC s/p pelvis EBRT completed 02/14/24 and tandem brachytherapy completed 02/28/24 TECHNIQUE: Multiple axial CT images were obtained from thoracic inlet through pubic symphysis following administration of IV contrast, Omnipaque 300, 100 mL. Reformatted images in the coronal and sagittal planes were generated from the axial data set to facilitate diagnostic accuracy. Total DLP (Dose-Length Product): 2327.60 mGy.cm (accession [id number]), 2327.60 mGy.cm (accession [id number]) Please note: The reported value represents the total of one or more individual components during the CT acquisition on this date and at this time, and as such, the same value may appear in more than one CT report depending on the interpreting/reporting physicians. COMPARISON: Abdominopelvic CT 06/18/2024 Pelvic MRI 11/28/24 Thoracic CTA 11/19/2023 FINDINGS: Chest: Lymph Nodes and Mediastinum: Unremarkable thyroid. No thoracic adenopathy. Cardiovascular: Normal caliber heart and patent central thoracic great vessels. Moderate calcific atherosclerosis involving the arch and aortic annulus. No pericardial effusion. Lungs and Pleura: Patent central airways. Expiratory acquisition. No suspicious sizable pulmonary nodules or focal consolidations. No suspicious focal nodular pleural enhancement or pleural effusions. Musculoskeletal and Body Wall: No aggressive lytic/blastic osseous lesions or chest wall soft tissue masses. Mild multilevel spondylosis. Abdomen/Pelvis: Solid Abdominal Organs: Suggestion of diffuse hepatic steatosis with some volume redistribution and fissural widening indicating possibility of early fibrosis. No discrete hepatic focal lesions are identified acknowledging mildly decreased sensitivity due to steatosis. Cholecystectomy without dilatation of the biliary tree. Unremarkable pancreas, spleen, adrenal glands, and kidneys aside from a punctate nonobstructive left lower pole renal calculus. GI Tract/Mesentery/Peritoneum: No evidence of GI tract obstruction, perforation, or obvious focal acute inflammation. No suspicious sizable mesenteric/peritoneal masses or organized intraperitoneal fluid collections. Pelvic Viscera: Similar appearance of the treated uterus and cervix when compared to June 2024. There is hypoenhancement of the lower uterine body and cervix probably related to radiation changes. Brachytherapy fiducials are present. Sustained resolution of the probable right adnexal abscess described previously. Unremarkable left adnexa. Lymph Nodes/Vasculature: No suspicious adenopathy by size right tibia. Moderate aortoiliac calcific atherosclerosis without aneurysmal change. Retroaortic left renal vein. Free Fluid: No ascites. Musculoskeletal and Body Wall: No aggressive lytic/blastic osseous lesions or body wall soft tissue masses. Mild to moderate sacroiliac degenerative change. Expected post radiation fatty replacement of the lower lumbosacral marrow. Procedure Note Renetta Small MD - 03/04/2025 CLINICAL INDICATION: Endometrial Cancer, restaging Stage II, medically inoperable, Grade 1 Endometrial AC s/p pelvis EBRTcompleted 02/14/24 and tandem brachytherapy completed 02/28/24 TECHNIQUE: Multiple axial CT images were obtained from thoracic inlet through pubicsymphysis following administration of IV contrast, Omnipaque 300, 100 mL.Reformatted images in the coronal and sagittal planes were generated fromthe axial data set to facilitate diagnostic accuracy. Total DLP (Dose-Length Product): 2327.60 mGy.cm (accession [id number]),2327.60 mGy.cm (accession [id number]) Please note: The reported valuerepresents the total of one or more individual components during the CTacquisition on this date and at this time, and as such, the same value mayappear in more than one CT report depending on the interpreting/reportingphysicians. COMPARISON: Abdominopelvic CT 06/18/2024 Pelvic MRI 11/28/24 Thoracic CTA 11/19/2023 FINDINGS: Chest: Lymph Nodes and Mediastinum: Unremarkable thyroid. No thoracicadenopathy. Cardiovascular: Normal caliber heart and patent central thoracic greatvessels. Moderate calcific atherosclerosis involving the arch and aorticannulus. No pericardial effusion. Lungs and Pleura: Patent central airways. Expiratory acquisition. Nosuspicious sizable pulmonary nodules or focal consolidations. Nosuspicious focal nodular pleural enhancement or pleural effusions. Musculoskeletal and Body Wall: No aggressive lytic/blastic osseous lesionsor chest wall soft tissue masses. Mild multilevel spondylosis. Abdomen/Pelvis: Solid Abdominal Organs: Suggestion of diffuse hepatic steatosis with somevolume redistribution and fissural widening indicating possibility ofearly fibrosis. No discrete hepatic focal lesions are identifiedacknowledging mildly decreased sensitivity due to steatosis.Cholecystectomy without dilatation of the biliary tree. Unremarkablepancreas, spleen, adrenal glands, and kidneys aside from a punctatenonobstructive left lower pole renal calculus. GI Tract/Mesentery/Peritoneum: No evidence of GI tract obstruction,perforation, or obvious focal acute inflammation. No suspicious sizablemesenteric/peritoneal masses or organized intraperitoneal fluidcollections. Pelvic Viscera: Similar appearance of the treated uterus and cervix whencompared to June 2024. There is hypoenhancement of the lower uterinebody and cervix probably related to radiation changes. Brachytherapyfiducials are present. Sustained resolution of the probable right adnexalabscess described previously. Unremarkable left adnexa. Lymph Nodes/Vasculature: No suspicious adenopathy by size right tibia.Moderate aortoiliac calcific atherosclerosis without aneurysmal change.Retroaortic left renal vein. Free Fluid: No ascites. Musculoskeletal and Body Wall: No aggressive lytic/blastic osseous lesionsor body wall soft tissue masses. Mild to moderate sacroiliac degenerativechange. Expected post radiation fatty replacement of the lower lumbosacralmarrow. IMPRESSION: Chest: No evidence of metastatic disease. Abdomen/Pelvis: No evidence of disease progression. CRITICAL RESULT: No. COMMUNICATION: Per this written report. Drafted by Renetta Small MD on 03/04/2025 2:39 PM Final report signed by Renetta Small MD on 03/04/2025 2:51 PM Demi Slater MD IMG CT PROCEDURES Final R esult * CT Chest w IV Contrast (03/04/2025 11:46 AM EDT) Anatomical Region Laterality Modality Chest Computed Tomogra phy Impressions 03/04/2025 2:51 PM EDT Chest: No evidence of metastatic disease. Abdomen/Pelvis: No evidence of disease progression. CRITICAL RESULT: No. COMMUNICATION: Per this written report. Drafted by Renetta Small MD on 03/04/2025 2:39 PM Final report signed by Renetta Small MD on 03/04/2025 2:51 PM Narrative 03/04/2025 2:51 PM EDT CLINICAL INDICATION: Endometrial Cancer, restaging Stage II, medically inoperable, Grade 1 Endometrial AC s/p pelvis EBRT completed 02/14/24 and tandem brachytherapy completed 02/28/24 TECHNIQUE: Multiple axial CT images were obtained from thoracic inlet through pubic symphysis following administration of IV contrast, Omnipaque 300, 100 mL. Reformatted images in the coronal and sagittal planes were generated from the axial data set to facilitate diagnostic accuracy. Total DLP (Dose-Length Product): 2327.60 mGy.cm (accession [id number]), 2327.60 mGy.cm (accession [id number]) Please note: The reported value represents the total of one or more individual components during the CT acquisition on this date and at this time, and as such, the same value may appear in more than one CT report depending on the interpreting/reporting physicians. COMPARISON: Abdominopelvic CT 06/18/2024 Pelvic MRI 11/28/24 Thoracic CTA 11/19/2023 FINDINGS: Chest: Lymph Nodes and Mediastinum: Unremarkable thyroid. No thoracic adenopathy. Cardiovascular: Normal caliber heart and patent central thoracic great vessels. Moderate calcific atherosclerosis involving the arch and aortic annulus. No pericardial effusion. Lungs and Pleura: Patent central airways. Expiratory acquisition. No suspicious sizable pulmonary nodules or focal consolidations. No suspicious focal nodular pleural enhancement or pleural effusions. Musculoskeletal and Body Wall: No aggressive lytic/blastic osseous lesions or chest wall soft tissue masses. Mild multilevel spondylosis. Abdomen/Pelvis: Solid Abdominal Organs: Suggestion of diffuse hepatic steatosis with some volume redistribution and fissural widening indicating possibility of early fibrosis. No discrete hepatic focal lesions are identified acknowledging mildly decreased sensitivity due to steatosis. Cholecystectomy without dilatation of the biliary tree. Unremarkable pancreas, spleen, adrenal glands, and kidneys aside from a punctate nonobstructive left lower pole renal calculus. GI Tract/Mesentery/Peritoneum: No evidence of GI tract obstruction, perforation, or obvious focal acute inflammation. No suspicious sizable mesenteric/peritoneal masses or organized intraperitoneal fluid collections. Pelvic Viscera: Similar appearance of the treated uterus and cervix when compared to June 2024. There is hypoenhancement of the lower uterine body and cervix probably related to radiation changes. Brachytherapy fiducials are present. Sustained resolution of the probable right adnexal abscess described previously. Unremarkable left adnexa. Lymph Nodes/Vasculature: No suspicious adenopathy by size right tibia. Moderate aortoiliac calcific atherosclerosis without aneurysmal change. Retroaortic left renal vein. Free Fluid: No ascites. Musculoskeletal and Body Wall: No aggressive lytic/blastic osseous lesions or body wall soft tissue masses. Mild to moderate sacroiliac degenerative change. Expected post radiation fatty replacement of the lower lumbosacral marrow. Procedure Note Renetta Small MD - 03/04/2025 CLINICAL INDICATION: Endometrial Cancer, restaging Stage II, medically inoperable, Grade 1 Endometrial AC s/p pelvis EBRTcompleted 02/14/24 and tandem brachytherapy completed 02/28/24 TECHNIQUE: Multiple axial CT images were obtained from thoracic inlet through pubicsymphysis following administration of IV contrast, Omnipaque 300, 100 mL.Reformatted images in the coronal and sagittal planes were generated fromthe axial data set to facilitate diagnostic accuracy. Total DLP (Dose-Length Product): 2327.60 mGy.cm (accession [id number]),2327.60 mGy.cm (accession [id number]) Please note: The reported valuerepresents the total of one or more individual components during the CTacquisition on this date and at this time, and as such, the same value mayappear in more than one CT report depending on the interpreting/reportingphysicians. COMPARISON: Abdominopelvic CT 06/18/2024 Pelvic MRI 11/28/24 Thoracic CTA 11/19/2023 FINDINGS: Chest: Lymph Nodes and Mediastinum: Unremarkable thyroid. No thoracicadenopathy. Cardiovascular: Normal caliber heart and patent central thoracic greatvessels. Moderate calcific atherosclerosis involving the arch and aorticannulus. No pericardial effusion. Lungs and Pleura: Patent central airways. Expiratory acquisition. Nosuspicious sizable pulmonary nodules or focal consolidations. Nosuspicious focal nodular pleural enhancement or pleural effusions. Musculoskeletal and Body Wall: No aggressive lytic/blastic osseous lesionsor chest wall soft tissue masses. Mild multilevel spondylosis. Abdomen/Pelvis: Solid Abdominal Organs: Suggestion of diffuse hepatic steatosis with somevolume redistribution and fissural widening indicating possibility ofearly fibrosis. No discrete hepatic focal lesions are identifiedacknowledging mildly decreased sensitivity due to steatosis.Cholecystectomy without dilatation of the biliary tree. Unremarkablepancreas, spleen, adrenal glands, and kidneys aside from a punctatenonobstructive left lower pole renal calculus. GI Tract/Mesentery/Peritoneum: No evidence of GI tract obstruction,perforation, or obvious focal acute inflammation. No suspicious sizablemesenteric/peritoneal masses or organized intraperitoneal fluidcollections. Pelvic Viscera: Similar appearance of the treated uterus and cervix whencompared to June 2024. There is hypoenhancement of the lower uterinebody and cervix probably related to radiation changes. Brachytherapyfiducials are present. Sustained resolution of the probable right adnexalabscess described previously. Unremarkable left adnexa. Lymph Nodes/Vasculature: No suspicious adenopathy by size right tibia.Moderate aortoiliac calcific atherosclerosis without aneurysmal change.Retroaortic left renal vein. Free Fluid: No ascites. Musculoskeletal and Body Wall: No aggressive lytic/blastic osseous lesionsor body wall soft tissue masses. Mild to moderate sacroiliac degenerativechange. Expected post radiation fatty replacement of the lower lumbosacralmarrow. IMPRESSION: Chest: No evidence of metastatic disease. Abdomen/Pelvis: No evidence of disease progression. CRITICAL RESULT: No. COMMUNICATION: Per this written report. Drafted by Renetta Small MD on 03/04/2025 2:39 PM Final report signed by Renetta Small MD on 03/04/2025 2:51 PM us Demi Slater MD IMG CT PROCEDURES Final R esult * (ABNORMAL) CBC and differential (03/03/2025 2:24 PM EDT) WBC Count 6.35 3.70 - 10.30 10*3/uL LAB HEMATOLOGY METHOD 03/03/2025 4:03 PM EDT [facility] RBC Count 4.12 3.90 - 5.20 10*6/uL LAB HEMATOLOGY METHOD 03/03/2025 4:03 PM EDT [facility] HGB 12.3 11.2 - 15.7 g/dL LAB HEMATOLOGY METHOD 03/03/2025 4:03 PM EDT [facility] HCT 38.8 34.0 - 45.0 % LAB HEMATOLOGY METHOD 03/03/2025 4:03 PM EDT [facility] Platelet Count 309 155 - 369 10*3/uL LAB HEMATOLOGY METHOD 03/03/2025 4:03 PM EDT [facility] MCV 94 79 - 98 fL LAB HEMATOLOGY METHOD 03/03/2025 4:03 PM EDT [facility] MCH 29.9 26.0 - 32.0 pg LAB HEMATOLOGY METHOD 03/03/2025 4:03 PM EDT [facility] MCHC 31.7 30.7 - 35.5 g/dL LAB HEMATOLOGY METHOD 03/03/2025 4:03 PM EDT [facility] RDW 14.6(H) 11.5 - 14.5 % LAB HEMATOLOGY METHOD 03/03/2025 4:03 PM EDT [facility] MPV 9.0 8.8 - 12.5 fL LAB HEMATOLOGY METHOD 03/03/2025 4:03 PM EDT [facility] nRBC 0.0 <=0.0 per 100 WBCs LAB HEMATOLOGY METHOD 03/03/2025 4:03 PM EDT [facility] Differential Type Automated LAB HEMATOLOGY METHOD 03/03/2025 4:03 PM EDT [facility] Neutrophils % 75 % LAB HEMATOLOGY METHOD 03/03/2025 4:03 PM EDT [facility] Lymphocytes % 11 % LAB HEMATOLOGY METHOD 03/03/2025 4:03 PM EDT [facility] Monocytes % 9 % LAB HEMATOLOGY METHOD 03/03/2025 4:03 PM EDT [facility] Eosinophils % 3 % LAB HEMATOLOGY METHOD 03/03/2025 4:03 PM EDT [facility] Basophils % 1 % LAB HEMATOLOGY METHOD 03/03/2025 4:03 PM EDT [facility] Immature Granulocytes % 1 % LAB HEMATOLOGY METHOD 03/03/2025 4:03 PM EDT [facility] Neutrophils Absolute 4.85 1.60 - 6.10 10*3/uL LAB HEMATOLOGY METHOD 03/03/2025 4:03 PM EDT [facility] Lymphocytes Absolute 0.68(L) 1.20 - 3.90 10*3/uL LAB HEMATOLOGY METHOD 03/03/2025 4:03 PM EDT [facility] Monocytes Absolute 0.54 0.30 - 0.90 10*3/uL LAB HEMATOLOGY METHOD 03/03/2025 4:03 PM EDT [facility] Eosinophils Absolute 0.19 0.00 - 0.50 10*3/uL LAB HEMATOLOGY METHOD 03/03/2025 4:03 PM EDT [facility] Basophils Absolute 0.05 0.00 - 0.10 10*3/uL LAB HEMATOLOGY METHOD 03/03/2025 4:03 PM EDT [facility] Immature Granulocytes Absolute 0.04 0.00 - 0.06 10*3/uL LAB HEMATOLOGY METHOD 03/03/2025 4:03 PM EDT [facility] Blood Venous blood specimen / Unknown Venipuncture / Unknown 03/03/2025 2:24 PM EDT 03/03/2025 2:24 PM EDT Narrative [facility] - 03/03/2025 4:03 PM EDT Therapeutic decision making should be based on absolute values, rather than percentages. us Kemar Storey MD LAB BLOOD ORDERABLES Final Res ult [facility] [address] [place] [address] * IgE (03/03/2025 2:24 PM EDT) Immunoglobulin E 12 <=214 kU/L 03/05/20 9:40 AM EDT [facility]) Blood Venous blood specimen / Unknown Venipuncture / Unknown 03/03/2025 2:24 PM EDT 03/03/2025 2:24 PM EDT Narrative [facility] VER[facility]) - 03/05/2025 9:40 AM EDT REFERENCE INTERVAL: Immunoglobulin E, Serum Access complete set of age- and/or gender-specific reference intervals for this test in the [facility] Test Directory ([employer]). Performed By: [employer] [address] [place] [address] Progressive Assembler And Fitter: Kam Rangel MD, PhD CLIA Number: [id number] us Kemar Storey MD LAB BLOOD ORDERABLES Final Res ult [facility] [address] [place] [address] * (ABNORMAL) Pulmonary function test (03/03/2025 12:55 PM EDT) [id number] 1.73(A) 2.54 - 4.09 L VYAIRE PFT [id number] 1.80(A) 2.54 - 4.09 L VYAIRE PFT [id number] 1.11(A) 2.01 - 3.21 L VYAIRE PFT FEV1 PRE 1.09(A) 2.01 - 3.21 L VYAIRE PFT ADP2KEQ6MMUE 64.09(A) 68.28 - 89.66 % VYAIRE PFT FEV1/FVC PRE 60.25(A) 68.28 - 89.66 % VYAIRE PFT EER64-86%_POST 0.57(A) 1.32 - 3.97 L/s VYAIRE PFT SQZ52-75% PRE 0.47(A) 1.32 - 3.97 L/s VYAIRE PFT [id number] 4.32(A) 4.83 - 8.25 L/s VYAIRE PFT PEF PRE 4.40(A) 4.83 - 8.25 L/s VYAIRE PFT Anatomical Region Laterality Modality PFT 03/03/2025 12:3 3 PM EDT Narrative 03/08/2025 11:35 AM EDT Pulmonary Function Testing Report Melia Fall 54 y.o. underwent pulmonary function testing today at the [facility]. The patient underwent spirometry testing. All tests were appropriately administered via ATS/ERS criteria. Testing is acceptable and repeatable. Spirometry: Reduced FEV1, FVC, and ratio consistent with moderate obstruction. However, cannot exclude a concomitant restriction and recommend lung volume testing. There is no significant positive bronchodilator response. Trend: Compared to previous study there has been no significant change in FEV1 and FVC. us Kemar Storey MD PFT ORDERABLES Final Result * Niox Determination (03/03/2025 12:45 PM EDT) Anatomical Region Laterality Modality PFT 03/03/2025 12:4 3 PM EDT Narrative 03/08/2025 11:36 AM EDT FeNO Interpretation: This FeNO value is <25 ppb and is considered low. Type 2 airway inflammation is unlikely. If the patient has a history of asthma and is being treated with ICS therapy, this may indicate effective treatment of type 2 airway inflammation. us Kemar Storey MD PFT ORDERABLES Final Result * (ABNORMAL) Hemoglobin A1c (11/21/2023 12:59 AM EDT) [facility] [address] Hemoglobin A1c 5.9(H) <5.7 % 11/21/2023 4:46 PM EDT [facility] Blood Venous blood specimen / Unknown Venipuncture / Unknown 11/21/2023 12:59 AM EDT 11/21/2023 1:31 AM EDT Narrative [facility] - 11/21/2023 4:46 PM EDT HA1C Interpretive Data: Diagnosis of Diabetes: Diabetic > or = 6.5% Pre-diabetic 5.7 to 6.4% Non-diabetic < or = 5.6% Glycemic Targets for Type I and Type II Diabetics: Non- Adults <7.0% Adults <6.0% Children and Adolescents <7.5% Source: [place] [employer]. Standards of medical care in diabetes,2017. Diabetes Care.2017:40 (suppl 1):S1-S135. HbA1c assay performed by an ion-exchange chromatography method that is certified traceable to the DCCT. us Jaison Campbell MD LAB BLOOD ORDERABLES Final Resul t [facility] [address] [place] [address] * HIV 1 & 2 Antibody/Antigen Screen (03/03/2017 2:28 AM EDT) HIV 1 Result NONREACTIVE Screening for HIV 1 and 2 antibodies is NONREACTIVE. No confirmatory testing is required. [facility] 03/03/2017 2:28 AM EDT 03/03/2017 2:38 AM EDT Historical Provider LAB BLOOD ORDERABLES Final R esult Performing Organization Address City/[facility] Co de Phone Number SUNQUEST * Acute Hepatitis Panel (03/03/2017 2:28 AM EDT) Hepatitis B Surf Antigen NEGATIVE Reference Value: Negative [facility] Hepatitis C Antibody NEGATIVE Reference Range: Negative [facility] Hepatitis A Antibody IgM NEGATIVE Reference Value: Negative [facility] External Hepatitis B Core IgM (HBCM) NEGATIVE Reference Value: Negative [facility] 03/03/2017 2:28 AM EDT 03/03/2017 2:38 AM EDT Historical Provider LAB BLOOD ORDERABLES Final R esult Performing Organization Address City/State/[facility] Co de Phone Number [facility]QUEST * Cytology (04/01/2015 12:00 AM EDT) Bronchoalveolar lavage fluid specimen (specimen) 04/01/2015 04/02/2015 6:57 AM EDT Narrative [facility] - 04/02/2015 4:13 PM EDT [facility] MR #: [id number] [facility] [address] [place], [place] [address] 1970 (Age: 44) FW Collect Date: 04/01/2015 00:00 Receipt Date: 04/02/2015 06:57 Page 1 DEPARTMENT OF PATHOLOGY AND LABORATORY MEDICINE CYTOPATHOLOGY REPORT Email: [email or web address] [phone] ATTENDING MD/Practitioner: Srini Cole MD Service: GAS Location: ENDO OTHER MD(S): Jesus Manuel Rodriguez M.D. (Res) Reported: 04/02/2015 16:13 Collected: 04/01/2015 00:00 DIAGNOSIS A. BRONCHOALVEOLAR LAVAGE: NO EVIDENCE OF MALIGNANCY. NO VIRAL CHANGES IDENTIFIED. GMS STAIN IS NEGATIVE FOR ORGANISMS. Electronically Signed Out PETE Jensen (ASCP) Eula Montalvo MD PROCEDURES/ADDENDA GROSS DESCRIPTION: 10 ml of yellow mucoid fluid CLINICAL INFORMATION: CLINICAL DIAGNOSIS Pt with diffuse ground glass opacity in lung. Right middle lobe bal handwritten on sample label only. SPECIMEN DESCRIPTION: A: BRONCHOALVEOLAR LAVAGE THIN PREP PROCESS CELLULAR ENHANCEMENT, CYTOLOGY GMS ICD: 518.89 LUNG DISEASE NOS (CHRONIC LUNG INFLAMMATION) (PULMONARY NODULE) F: A; 47870, C 80330, 348664 SNOMED CODES: A; E0004 W39992 P1250 O83150 K47064 L0C439 [id number] A resident has participated in this service. A pathologist has performed and is responsible for the reported pathologic evaluation. Arnie Cole MD LAB PATHOLOGY ORDERABLES Brigette alvarez Result [facility]QUEST from Last 3 Months or Most Recently Relevant to Health Maintenance Insurance Advance Directives * Full Code (Latest Code Status on File) Date Activated Date Inactivated Comments 11/15/2023 7:04 PM 11/26/2023 8:22 PM Question Answer Comments Patient has decision-making capacity? Yes Care Teams Food Runner Relationship Specialty Start Date End Date Harlan Elena MD PCP - General Family Medicine 04/11/22 Kelly Donald DO [address] [place] [address] Referring Physician Obstetrics and Gynecology 11/06/23 Marisa Anna MD [address] [facility] [address] [place] [id number] Consulting Physician Radiation Oncology 12/14/23
--- OUTSIDE RECORDS SUMMARY | 2025-05-27 12:48 | XMS_ITS | Encounter Summary ---
Author Organization [facility] Address [address] [place] [address] Care Team Providers Care Biazzi Nitrator Operator Name Role Phone Harlan Elena MD Primary Care Provider Kelly Forbes DO Unavailable [phone] Marisa Anna MD Unavailable [phone] Reason for Visit * Reason Comments Med Refill Encounter Details Date Type Department Care Team ([facility] Contact Info) Description 12/18/2022 Refill [facility] [address] [place] [address] Kemar Storey MD [address] [facility] [address] [place] [address] Asthma-COPD overlap syndrome (CMS/HCC); Allergic [...] Description 09/08/2025 3:30 PM EST Ancillary Procedure [facility] [address] [place] [address] 09/08/2025 4:00 PM EST Office Visit [facility] [address] [place] [address] Kemar Storey MD [address] [place] [address] 09/08/2025 4:00 PM EST Ancillary Procedure [facility] [address] [place] [address] 09/09/2025 12:00 PM EST Appointment [facility] [address] [place] [address] 09/09/2025 2:45 PM EST Office Visit [facility] [address] [place] [phone] Demi Slater MD [address] [place] [address] 03/19/2026 9:00 AM EDT Appointment [facility] [id number] [place] [id number] Marisa Anna MD [address] [place] [address] documented as of this encounter [...] documented as of this encounter Care Teams Biazzi Nitrator Operator Relationship Specialty Start Date End Date Harlan Elena MD PCP - General Family Medicine 04/11/22 Kelly Donald DO [address] [place], [place] [address] Referring Physician Obstetrics and Gynecology 11/06/23 Marisa Anna MD [address] [facility] [address] [place] [address] Consulting Physician Radiation Oncology 12/14/23 documented as of this encounter
--- OUTSIDE RECORDS SUMMARY | 2025-05-27 12:48 | XMS_ITS | Data Portability ---
Author Organization [facility] & [place] [facility] ADMIN Address [address] [place] [address] Care Team Providers Care Case Specialist Name Role Phone EM MORELOS Wagon Driver Salesperson [phone] JOVAN MCQUEEN Primary Care Provider Assessment Encounter Date Assessment Date Assessment LastModified by Organization Details LastModified Time 05/23/2023 05/23/2023 cystoscopy is negative today. I see no source of bleeding on pelvic exam today. Patient will need follow-up in 3-4 months in the office and will need a thorough gynecologic assessment to see if this would be a potential source of bleeding. [email or web address] Not available 05/23/2023 15:06:59 Plan of Treatment Reminders Order Date Submit Date Provider Last Modified By Organization Details Last Modified Time Details Appointments None recorded. Lab urinalysis , dipstick 2022 023 [email or web address] [facility], [address], [place], [address], 3 14:39:14 cytology, urine 2022 023 TUAN Not available 3 10:02:33 Referral None recorded. Procedures None recorded. Surgeries None recorded. Imaging CT, abdomen + pelvis, w/wo contrast - ct abd and pelvis without and with iv no oral 2022 023 [email or web address] 8 [facility] [address], [place], [address], 3 14:17:39 Medication Orders Amitiza 24 mcg capsule [address]/[id number], [address] [place], [address], 3 20:49:14 Miralax 17 gram/dose oral powder [address]/[facility] [id number], [address] [place], [address], 3 15:49:45 Amitiza 24 mcg capsule 2021 022 [id number] [address] [place], [address], 2 12:37:18 Miralax 17 gram/dose oral powder 2021 022 [id number] [address] [place], [address], 12:37:18 Patient TargetsNo targets recorded. Patient InstructionsNo instructions recorded. Reason for Referral None Reported. Results Created Date Observation Date Name Description Value Unit Range Abnormal Flag Note LastModifiedBy Organization Detail LastModifiedTime 03/29/2003/29/2023 urina lysis , dipst ick Leukocytes Negati ve Not Available [facility] [address] [place], [address], 03/29/2023 14:09:16 03/29/20 23 03/29/2023 urina lysis , dipst ick Nitrite negati ve Not Available [facility] [place], [address], 03/29/2023 14:09:16 03/29/20 23 03/29/2023 urina lysis , dipst ick Urobilinogen .2 Not Available [facility] [address] [place], [address], 03/29/2023 14:09:16 03/29/2003/29/2023 urina lysis , dipst ick Protein Negati ve Not Available [facility] [place], [address], 03/29/2023 14:09:16 03/29/2003/29/2023 urina lysis , dipst ick pH 5.0 Not Available [facility] [place], [address], 03/29/2023 14:09:16 03/29/2003/29/2023 urina lysis , dipst ick Blood Negati ve Not Available [facility] [place], [address], 03/29/2023 14:09:16 03/29/2003/29/2023 urina lysis , dipst ick Specific [place] 1.015 Not Available [facility] [address] [place], [address], 03/29/2023 14:09:16 03/29/2003/29/2023 urina lysis , dipst ick Ketone Negati ve Not Available [facility] [place], [address], 03/29/2023 14:09:16 03/29/2003/29/2023 urina lysis , dipst ick Bilirubin Negati ve Not Available [facility] [place], [address], 03/29/2023 14:09:16 03/29/20 23 03/29/2023 urina lysis , dipst ick Glucose Negati ve Not Available [facility] [address] [place], [place], [address], 03/29/2023 14:09:16 03/29/20 23 03/29/2023 urina lysis , dipst ick Appearance Clear Not Available [facility] [address] [place], [place], [address], 03/29/2023 14:09:16 03/29/2003/29/2023 urina lysis , dipst ick Color Yellow Not Available [facility] [place], [place], [address], 03/29/2023 14:09:16 04/09/2004/09/2023 CT, abdom en + pelvi s, w/wo contr ast No observ ation record ed. [facility] [address], [place], [address], 04/23/2023 10:53:19 Result Notes None recorded. Problems Name Problem SNOMED Code Status Onset Date Resolution Date Notes Provider Name and Address Organization Details Recorded Time Hypertensive disorder 92051084 Active 2021 Chasity hernández, [place] - [facility] [place] & [place] 2 11:45:05 Asthma 848957550 Active 2021 Chasity Tan null, [place] [facility] [place] [facility] [place] 2 11:45:12 Hypertriglycer idemia 177457743 Active 2021 Chasity Tan null, [place] [facility] [place] 2 11:45:23 Intracranial aneurysm 678628065 Active 2021 Chasity hernández, [place] [facility] [place] 2 11:45:40 Anemia 176034987 Active 2021 Chasity Britney null, [place] [facility] [place] 2 11:45:56 Arthritis 9696680 Active 2021 Chasity Tan null, [place] [facility] & [place] 2 11:46:00 Chronic obstructive pulmonary disease 16310383 Active 2021 Chasity Tan null, [place] [facility] [place] 2 11:46:18 Anxiety 51995205 Active 2021 Chasity Tan null, [place] [facility] [place] [facility] [place] 2 11:46:30 Depressive disorder 35292583 Active 2021 Chasity Tan null, [place] [facility] [place] [facility] & [place] 2 11:46:39 Gastroesophage al reflux disease 220378422 Active 2021 Chasity Tan null, [place] [facility] [place] [facility] [place] 2 11:46:55 Irritable bowel syndrome characterized by constipation 430036465 Active 2021 Em Morelos NP [address] [place] [address], [address], [place], [address], [place] - [facility] [place] 2 12:34:45 Problem Notes None recorded. Procedures Surgical History Date Name Laterality Status Provider Name and Address Organization Details Recorded Time 05/23/20 23 Cystoscopy-Female completed Abhishek Abad MD [address] [facility], [place], [address], [place] [facility] [place] 05/23/2023 15:05:54 03/16/20 15 Bronchoscopy completed Chasity Tan [place] - [facility] [place] 05/24/2022 11:57:09 07/16/19 08 Other completed Haydee CERDA - [facility] - [place] & [place] 03/07/2024 13:31:09 Cholecystectomy completed Chasity Freeman Y - [facility] - [facility] & [place] 05/24/2022 11:56:09 excision of skin cyst completed Chasity CERDA - [facility] - [place] & [place] 05/24/2022 11:56:22 Removal of ovarian cyst(s) completed Chasity BUTTS [facility] & [place] 05/24/2022 11:56:28 Knee Surgery completed Chasity BUTTS [facility] & [place] 05/24/2022 11:56:51 Colonoscopy completed Chasity BUTTS [facility] & [place] 05/24/2022 11:57:21 EGD/Endoscopy completed Chasity CERDA BENJAMÍN [facility] & [place] 05/24/2022 11:57:26 transplantation of bone marrow completed Chasity CERDA BENJAMÍN [facility] & [place] 05/24/2022 11:57:44 Imaging Results None recorded. Procedure Notes None recorded. Medical Equipment None Reported. Allergies No known drug allergies Medications Name Sig Start Date Stop Date Status Note LastModified by Organization Details LastModified Time latanoprost 0.005 % eye drops INSTILL 1 DROP INTO BOTH EYES EVERY DAY AT BEDTIME active Not Available Not Available No t Available cetirizine 10 mg tablet TAKE 1 TABLET BY MOUTH EVERY DAY active Not Available Not Available No t Available azithromyci n 250 mg tablet TAKE 1 TABLET BY MOUTH EVERY DAY FOR 10 DAYS 11/29 completed Not Available Not Available Not Available aspirin 325 mg tablet 11/29 completed Not Available Not Available Not Available hydrocodone 5 mg-acetamin ophen 325 mg tablet TAKE 1 TABLET BY MOUTH EVERY 8 HOURS NEEDED FOR PAIN 05/07 completed Not Available Not Available Not Available prednisone 20 mg tablet TAKE 2 TABLETS BY MOUTH EVERY DAY FOR 10 DAYS 03/29 completed Not Available Not Available Not Available dantrolene 100 mg capsule TAKE 1 CAPSULE (100 MG TOTAL) BY MOUTH THREE TIMES DAILY. active Not Available Not Available No t Available ciprofloxac in 500 mg tablet 05/23 completed Not Available Not Available Not Available sulfamethox azole 800 mg-trimetho prim 160 mg tablet TAKE 1 TABLET BY MOUTH TWICE A DAY 03/29 completed Not Available Not Available Not Available aspirin 325 mg tablet,kane yed release TAKE 1 TABLET BY MOUTH EVERY DAY active Not Available Not Available No t Available baclofen 10 mg tablet TAKE 1 TABLET BY MOUTH THREE TIMES A DAY active Not Available Not Available No t Available pantoprazol e 40 mg tablet,kane yed release TAKE 1 TABLET (40 MG TOTAL) BY MOUTH 2 (TWO) TIMES A DAY BEFORE MEALS. DO NOT CRUSH, CHEW, OR SPLIT. active Not Available Not Available No t Available omeprazole 20 mg capsule,del ayed release 05/23 completed Not Available Not Available Not Available cephalexin 500 mg tablet TAKE 1 TABLET BY MOUTH TWICE A DAY 7 DAYS 03/29 completed Not Available Not Available Not Available montelukast 10 mg tablet active Not Available Not Available Not Available polyethylen e glycol 3350 17 gram/dose oral powder TAKE 17 GRAMS MIXED IN LIQUID DIRECTED TWICE A DAY active Not Available Not Available No t Available levofloxaci n 500 mg tablet 05/23 completed Not Available Not Available Not Available fluticasone propionate 50 mcg/actuati on nasal spray,suspe nsion USE 1 SPRAY IN EACH NOSTRIL EVERY DAY DIRECTED active Not Available Not Available No t Available Ventolin HFA 90 mcg/actuati on aerosol inhaler INHALE 2 PUFFS EVERY 6 HOURS IF NEEDED FOR WHEEZING. active Not Available Not Available No t Available Botox 100 unit injection 11/29 completed Not Available Not Available Not Available rosuvastati n 10 mg tablet TAKE 1 TABLET BY MOUTH EVERY DAY active Not Available Not Available No t Available Spiriva with HandiHaler 18 mcg and inhalation capsules INHALE 1 CAPSULE VIA HANDIHALE R ONCE DAILY AT THE SAME TIME EVERY DAY active Not Available Not Available No t Available nitrofurant oin monohydrate /macrocryst als 100 mg capsule TAKE 1 CAPSULE BY MOUTH EVERY 12 HOURS FOR 7 DAYS WITH FOOD 03/29 completed Not Available Not Available Not Available Flovent HFA 220 mcg/actuati on aerosol inhaler INHALE 2 PUFFS INTO THE LUNGS TWICE A DAY RINSE MOUTH WITH WATER AFTER USE, DO NOT SWALLOW. active Not Available Not Available No t Available pantoprazol e 11/29 completed Not Available Not Available Not Available lubiproston e 24 mcg capsule TAKE 1 CAPSULE BY MOUTH TWICE A DAY 2023 active Not Available Not Available Not Avai lable Symbicort 160 mcg-4.5 mcg/actuati on HFA aerosol inhaler INHALE 2 PUFFS BY MOUTH TWICE A DAY. RINSE MOUTH WITH WATER AFTER USE, DO NOT SWALLOW. active Not Available Not Available No t Available Vitals Date Recorded Body height Body temperature Body mass index (BMI) Body weight Systolic And Diastolic Provider Name and Address Organization Details Last Updated DateTime 03/29/2023 162.56 cm 98.6 [degF] 42.1 kg/m2 735219. 13 g 130/68 mm[Hg] Nydia BUTTS [facility] & [place] 3 14:08:23 Date Recorded Body height Body mass index (BMI) Body weight Body temperature Systolic And Diastolic Provider Name and Address Organization Details Last Updated DateTime 05/10/2023 162.56 cm 42.1 kg/m2 096246. 13 g 97.3 [degF] 140/70 mm[Hg] Nydia BUTTS [facility] [place] 3 16:14:41 Date Recorded Body height Body mass index (BMI) Body weight Systolic And Diastolic Provider Name and Address Organization Details Last Updated DateTime 05/23/2023 162.56 cm 42.1 kg/m2 768598.13 g 120/74 mm[Hg] Esthela BUTTS [facility] [place] 05/23/2023 14:12:21 Date Recorded Body height Body mass index (BMI) Body weight Body temperature Oxygen saturation Oxygen saturation in Arterial blood by Pulse oximetry Heart rate Provider Name and Address Organization Details Last Updated DateTime 3 162.56 cm 41.5 kg/m2 719293. 35 g 97.2 [degF] 93 % 93 % 80 /min Chasityanali BUTTS [facility] [place] 3 10:37:46 Date Recorded Body height Body mass index (BMI) Body weight Body temperature Oxygen saturation Oxygen saturation in Arterial blood by Pulse oximetry Heart rate Provider Name and Address Organization Details Last Updated DateTime 2 162.56 cm 41.2 kg/m2 071925. 17 g 97.7 [degF] 93 % 93 % 97 /min Chasity Britney BUTTS [facility] & [place] 2 11:33:17 Social History Question Answer Notes LastModified by Organizat ion Details LastModified Time Tobacco Smoking Status Current Every Day Smoker Haydee hernández PRASHANT Bustos [facility] & [place] 09/19/2022 10:45:39 Do You Have An Advance Directive? [email or web address] Information not available 09/19/2022 Are You Blind Or Do You Have Difficulty Seeing? No Information not available 09/19/2022 What Is Your Level Of Caffeine Consumption? Occasional Information not available 05/23/2023 What Was The Date Of Your Most Recent Tobacco Screening? 05/08/2023 [email or web address] Information not available 03/07/2024 What Is Your Current Pack Years? [email or web address] Information not available 05/23/2023 Are You Passively Exposed To Smoke? No Information not available 03/07/2024 How Much Tobacco Do You Smoke? 0.25 PPD [email or web address] Information not available 09/19/2022 How Many Years Have You Smoked Tobacco? 30 Information not available 03/29/2023 Sex: Unknown Functional Status Question Answer Note LastModified by Organizat ion Details LastModified Time Do you use any illicit or recreational drugs? No [email or web address] Information not available 05/24/2022 What is your level of alcohol consumption? None [email or web address] Information not available 03/29/2023 Do you or have you ever used smokeless tobacco? Never used smokeless tobacco [email or web address] Information not available 09/19/2022 What is your exercise level? None [email or web address] Information not available 09/19/2022 Mental Status Question Answer Note LastModified by Organization D etails LastModified Time Do you feel stressed (tense, restless, nervous, or anxious, or unable to sleep at night)? [id number] [email or web address] Information not available 09/19/2022 Family History Relationship Description Onset Age of this Age Resolved Age Notes LastModified by Organization Details LastModified Time Mother Chronic obstructive pulmonary disease pt. added direct ly (05/23) [email or web address] Not available 05/23/2022 12:33:04 Mother Anemia pt. added direct ly (05/23) [email or web address] Not available 05/23/2022 12:33:13 Mother Disorder of endocrine system pt. added direct ly (05/23) [email or web address] Not available 05/23/2022 12:33:27 Mother Hypercholest erolemia pt. added direct ly (05/23) [email or web address] Not available 05/23/2022 12:34:17 Mother Hypertensive disorder pt. added direct ly (05/23) [email or web address] Not available 05/23/2022 12:34:52 Father Chronic obstructive pulmonary disease pt. added direct ly (05/23) [email or web address] Not available 05/23/2022 12:33:04 Father Headache pt. added direct ly (05/23) [email or web address] Not available 05/23/2022 12:33:43 Father Hypercholest erolemia pt. added direct ly (05/23) [email or web address] Not available 05/23/2022 12:34:17 Father Tuberculosis pt. added direct ly (05/23) [email or web address] Not available 05/23/2022 12:37:02 Maternal Grandmother Headache pt. added direct ly (05/23) [email or web address] Not available 05/23/2022 12:33:43 Brother Hypertensive disorder pt. added direct ly (05/23) [email or web address] Not available 05/23/2022 12:34:52 Brother Liver problem pt. added direct ly (05/23) [email or web address] Not available 05/23/2022 12:36:19 Maternal Uncle Obesity pt. added direct ly (05/23) [email or web address] Not available 05/23/2022 12:35:42 Son Seizure disorder pt. added direct ly (05/23) [email or web address] Not available 05/23/2022 12:36:02 Notes:mother father sister brother alive Medical History Condition Response Obesity Y Vision or Eye Problems Y Kidney or Bladder Problems Y Stroke Y COPD Y GI Problems Y Lung Disease Y Anemia Y Reflux/GERD Y High Cholesterol Y History of STI Y Hypertension Y Neurological Problems Y Gynecological History Statement/Question Response Abnormal Pap N Current Control Method None Sexually Active? Y Obstetrics History GPAL:G 0 P 0 0 0 0 Past Encounters Encounter ID Performer Location Encounter Start Date Encounter Closed Date Diagnosis/Indication Diagnosis SNOMED-CT Code Diagnosis ICD10 Code Diagnosis IMO Codes Diagnosis Note [id number] Em Morelos NP [facility] [address] [place] [address] 05/24/2022 11:11:37 05/24/2022 12:51:00 Irritable bowel syndrome characterized by constipation 289891321 K58.1 Improved with Amitiza 24 mcg p.o. b.i.d. however continues to experience occasional uncontroll ed symptoms. Recommend continued use of Amitiza as well as starting MiraLax 17 g p.o. daily for treatment. Will send refills today. Previously failed treatment with MiraLax, fiber, OTC stool softeners. Gastroesop hageal reflux disease 275100363 K21.00 Controlled with use of PPI b.i.d.. Recommend continued reflux precaution s. [id number] Nydia Rothman NP, S [facility] [address],[place] [address] 03/29/2023 13:46:53 03/29/2023 14:50:52 Microscopic hematuria 751201470 R31.29 UA negative todayUrine for cytologySc hedule Ct scan of abd/pelvis with and w/o IV contrastDi scussed active bowel habits. Discussed possibly adding Mirlax to bowel regimenWil l forgo treatment of leakage of urine r/t chronic constipati onDiscusse d decreasing caffeine intakeRTC in 6 weeks to discuss test results and possible office BC to complete hematuria w/u. Constipation 72360503 K5 9.00 Dash hematuria 94549260 5 R31.0 Pruritus of vagina 09112 003 L29.3 Finding of desire for urination 419422031 R39.15 Nocturia 822184728 R35.1 Mixed urin nasima incontinence 826112028 N39.46 History of urinary tract infection 3490315370 107 Z87.440 History of cerebrovascular accident 805694146 Z86.73 History of calculus of kidney 697647956 Z87.442 [id number] Nydia Rothman NP, S [facility] [address],[place] [address] 05/10/2023 16:09:23 05/10/2023 16:15:05 Microscopic hematuria 348576745 R31.[address] scan results discussed with pt in clinicDisc ussed office cystoscopy for further evaluation of gross/micr oscopic hematuria. Pt would like to move forward with this.RTC for office cysto under local Constipation 71847627 K5 9.00 Dash hematuria 57840277 5 R31.0 Pruritus of vagina 41447 003 L29.3 Nocturia 649682007 R35.1 Mixed urin nasima incontinence 267404234 N39.46 History of urinary tract infection 9900941734 107 Z87.440 History of cerebrovascular accident 201673334 Z86.73 History of calculus of kidney 683109584 Z87.442 [id number] Abhishek Abad MD [facility] [address] [place] [address] 05/23/2023 14:04:43 05/23/2023 14:52:39 Microscopic hematuria 979164580 R31.29 Constipation 79210511 K5 9.00 Dash hematuria 56199555 5 R31.0 Pruritus of vagina 96151 003 L29.3 Nocturia 326718563 R35.1 Mixed urin nasiam incontinence 079251087 N39.46 History of urinary tract infection 4732838104 107 Z87.440 History of cerebrovascular accident 537430680 Z86.73 History of calculus of kidney 230682705 Z87.442 [id number] Em Morelos NP [facility] [address] [place] [address] 05/23/2023 10:27:05 05/24/2023 09:02:11 Gastroesophageal reflux disease 327678508 K21.00 Controlled with use of PPI b.i.d.. Recommend continued reflux precaution s. Irritable bowel syndrome characterized by constipation 481831697 K58.1 Continues Amitiza 24 mcg p.o. b.i.d as well as miralax with occasional uncontroll ed symptoms. Recommend continued use of Amitiza 24 mcg BID as well as increasing miralax BID. Will send refills today. CT abdomen pelvis reviewed from [facility] 04/09/23 negative for acute intra-abdo marion process. Health Concerns Section Related Observation LastModified by Organization Detai ls LastModified Time None Recorded Concern Status LastModified by Organization Details LastModified Time None Recorded Advance Directives Directive N: Payers Insurance Date Sequence Insurance Name Policy Number Policy Barreto Covered Member ID Barreto Member ID Guarantor Name 02/02/2024 1 [facility] (MEDICAID HMO) Melia Whitley [id number] Melia hWitley Notes Date Note Type Note Provider Name and Address Organization Details Recorded Time 05/24/2022 text/html Patient returns to clinic today for follow-up on constipation. She continues Amitiza 24 mcg po BID with some continued constipation however it has improved. Abdominal pain has resolved. GERD remains well controlled with use of PPI BID. Em Morelos NP [address] [place] [address], [address], [place], [address], [facility] & [place] 05/24/2022 12:38:37 03/29/2023 text/html 52 yowf presents to clinic for evaluation of gross and microscopic hematuria. Patient reports she experiences vaginal itching and then will experience gross hematuria and will pass flesh looking material. has went to her PCPs office and was treated for urinary tract infections. Urine cultures was sent by PCPs office has all been negative for UTI. She reports urinary stream is good. Nocturia times 2-3. Has chronic constipation will go up to 1 week without having a bowel movement. Patient is on Amitza, and sees a GI specialist. Currently denies any dysuria. States she has urinary urgency/frequency. Drinks 3 cups of coffee and 2 Ale8s a day. Has mixed urinary incontinence for the past 2 years. Wears a pull up daily and changes this at least 2 times per day. Has not tried any medications for this. denies any history of glaucoma. Reports she is not had a hysterectomy. History of kidney stones. Reports a kidney stone was seen on an x-ray approximately 10 years ago states she is not passed it or unsure if it is still there. Patient is a current smoker. Has smoked 40 years. Smokes 1/2 pack per day. Paternal uncle with renal cancer. Nydia Rothman NP, S [address] [facility], [place], [address], [facility] & [place] 03/29/2023 14:32:02 05/10/2023 text/html 52 yowf RTC for f/u of gross and microscopic hematuria. Urine cytology on 04/09/2023 was negative for any malignant cells. CT scan of abdomen pelvis without and with IV contrast on 04/09/2023 was unremarkable and revealed no pathology. Reports since last visit on 03/29/2023 she is not experienced any more gross hematuria. Previous History: [52 yowf presents to clinic for evaluation of gross and microscopic hematuria. Patient reports she experiences vaginal itching and then will experience gross hematuria and will pass flesh looking material. has went to her PCPs office and was treated for urinary tract infections. Urine cultures was sent by PCPs office has all been negative for UTI. She reports urinary stream is good. Nocturia times 2-3. Has chronic constipation will go up to 1 week without having a bowel movement. Patient is on Amitza, and sees a GI specialist. Currently denies any dysuria. States she has urinary urgency/frequency. Drinks 3 cups of coffee and 2 Ale8s a day. Has mixed urinary incontinence for the past 2 years. Wears a pull up daily and changes this at least 2 times per day. Has not tried any medications for this. denies any history of glaucoma. Reports she is not had a hysterectomy. History of kidney stones. Reports a kidney stone was seen on an x-ray approximately 10 years ago states she is not passed it or unsure if it is still there. Patient is a current smoker. Has smoked 40 years. Smokes 1/2 pack per day. Paternal uncle with renal cancer.] Nydia Rothman, OG, S [address] [facility], [place], [address], [facility] [place] - [place] & [place] 05/10/2023 16:16:56 05/23/2023 text/html ROS as noted in the HPI Patient returns to clinic today follow-up of hematuria both gross and microscopic with negative cytology and CT scan. She is here today for cystoscopy. the patient had a stroke several years ago and is on baby aspirin. She tells me she is due for a Pap smear on 05/31/2023 through her family practice provider. See Below past medical history:52 yowf RTC for f/u of gross and microscopic hematuria. Urine cytology on 04/09/2023 was negative for any malignant cells. CT scan of abdomen pelvis without and with IV contrast on 04/09/2023 was unremarkable and revealed no pathology. Reports since last visit on 03/29/2023 she is not experienced any more gross hematuria.Previous History: [52 yowf presents to clinic for evaluation of gross and microscopic hematuria. Patient reports she experiences vaginal itching and then will experience gross hematuria and will pass flesh looking material. has went to her PCPs office and was treated for urinary tract infections. Urine cultures was sent by PCPs office has all been negative for UTI. She reports urinary stream is good. Nocturia times 2-3. Has chronic constipation will go up to 1 week without having a bowel movement. Patient is on Amitza, and sees a GI specialist. Currently denies any dysuria. States she has urinary urgency/frequency. Drinks 3 cups of coffee and 2 Ale8s a day. Has mixed urinary incontinence for the past 2 years. Wears a pull up daily and changes this at least 2 times per day. Has not tried any medications for this. denies any history of glaucoma. Reports she is not had a hysterectomy. History of kidney stones. Reports a kidney stone was seen on an x-ray approximately 10 years ago states she is not passed it or unsure if it is still there. Patient is a current smoker. Has smoked 40 years. Smokes 1/2 pack per day. Paternal uncle with renal cancer.] Abhishek Abad MD [address] [facility], [place], [address], [place] - [facility] 05/23/2023 15:07:47 05/23/2023 text/html Patient returns to clinic today for follow-up on constipation. She continues Amitiza 24 mcg po BID as well as miralax daily for treatment. She does continue to experience occasional uncontrolled symptoms. Continues PPI BID with controlled GERD symptoms. Denies abdominal pain, nausea, or vomiting. Em Morelos NP [address] [place] [address], [address], [place], [address], [facility] - [facility] [place] 05/23/2023 20:54:13 OBGyn Episode No OBEpisode recorded.
--- OUTSIDE RECORDS SUMMARY | 2025-05-27 12:48 | XMS_ITS | Referral Summary ---
Author Organization [employer] ([place], [place], [place], [place], [place]) Address [address] [place] [address] Care Team Providers Care Assistant Passenger Locomotive Engineer Name Role Phone Harlan Elena MD Primary Care Provider [phone] Encounters Date Type Department Care Team Description 03/27/2025 Travel 03/27/2025 11:30 AM EDT Procedure Visit [facility] Neurology [address] [place] [address] Sola Gil MD 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); Cerebrovascular accident (CVA) due to occlusion of right middle cerebral artery (HCC) from Last 3 Months Allergies No known active allergies Medications baclofen (LIORESAL) 10 MG tabletIndication s:Spastic hemiplegia affecting nondominant side (HCC) Take 1 tablet (10 mg total) by mouth 3 (three) times daily As needed for muscle spasms. Alternate with dantrolene. 270 tablet 3 5 09/30/19 26 Active dantrolene (DANTRIUM) 100 MG capsuleIndicatio ns:Spastic hemiplegia affecting nondominant side (HCC) Take 1 capsule (100 mg total) by mouth 3 (three) times daily. 270 capsule 3 5 09/30/19 26 Active aspirin 325 MG tablet Take 1 tablet (325 mg total) by mouth daily. 5 Active Dupixent Pen 300 mg/2 mL pnij 5 Active Active Problems No known active problems Social History Tobacco Use Types Packs/Day Years [...] Date Álvaro rded Speak language other than Brazilian at home Not on file 08/03/2023 Want [...] - - Body Mass Index - - Plan of Treatment Upcoming Encounters Date Type Department Care Team ([facility] st Contact Info) Description 06/26/2025 11:30 AM EST Procedure Visit [facility] Neurology - [place] [address] [place] [address] Sola Gil MD [address] [place] [address] Insurance [facility] Care Teams Assistant Passenger Locomotive Engineer Relationship Specialty Start Date End Date Harlan Elena MD [address] [place] [address] PCP - General Family Medicine 09/21/22
--- OUTSIDE RECORDS SUMMARY | 2025-05-27 12:48 | XMS_ITS | Encounter Summary ---
Author Organization [facility] Address [address] [place] [address] Care Team Providers Care Fuel System Maintenance Worker Name Role Phone Harlan Elena MD Primary Care Provider Kelly Forbes DO Unavailable [phone] Marisa Anna MD Unavailable [phone] Reason for Referral * Medications - Closed Specialty Diagnoses / Procedures Referred By Contmalathi t Referred To Contact Diagnoses Asthma-COPD overlap syndrome (CMS/HCC) Kemar Storey MD [id number] [place] [address] Phone: tel: fax: Referral ID Status Reason Start Date Expiration Date Visits Re quested Visits Authorized [id number] Closed 1 1 Reason for Visit * Reason Onset Date Comments Med Refill 03/30/2025 Encounter Details Date Type Department Care Team (Late st Contact Info) Description 03/30/2025 Telephone [facility] Medicine Specialties [address] [place] [address] Kemar Storey MD [id number] [place] [address] Med Refill Social History Tobacco Use Types Packs/Day Years [...] place to sleep or slept in a fci (including now)? No 11/19/2023 PHQ-9 Answer Date [...] first t ruth ann in the morning (EYE-BILL OF LADING CLERK) to steady your nerves or to get rid of a hangover? 0 11/15/2023 CAGE Questionnaire Score 0 024 Utilities Answer Date Recorded In the past 12 months has [employer], gas, oil, or water [employer] threatened to shut off services in your [...] Description 09/08/2025 3:30 PM EST Ancillary Procedure [facility] Medicine Specialties [address] [place] [address] 09/08/2025 4:00 PM EST Office Visit [facility] Medicine Specialties [address] [place] [address] Kemar Storey MD [address] [place] [address] 09/08/2025 4:00 PM EST Ancillary Procedure [facility] Medicine Specialties [address] [place] [address] 09/09/2025 12:00 PM EST Appointment [facility] [address] [place] [address] 09/09/2025 2:45 PM EST Office Visit [facility] Gynecology [address] [place] [address] Demi Slater MD [address] [place] [address] 03/19/2026 9:00 AM EDT Appointment [facility] Radiation [address] [place] [address] Marisa Anna MD [address] [place] [address] documented as of this encounter [...] documented as of this encounter Care Teams Fuel System Maintenance Worker Relationship Specialty Start Date End Date Harlan Elena MD PCP - General Family Medicine 04/11/22 Kelly Donald DO [address] [place] [address] Referring Physician Obstetrics and Gynecology 11/06/23 Marisa Anna MD [address] [place] [address] Consulting Physician Radiation Oncology 12/14/23 documented as of this encounter
--- OUTSIDE RECORDS SUMMARY | 2025-05-27 12:48 | XMS_ITS | Clinical Summary ---
Author Organization [employer] ([place], [place], [place], [place], [place]) Address [address] [place] [address] Care Team Providers Care Women'S Ministry Director Name Role Phone Harlan Elena MD Primary Care Provider [phone] Allergies No known active allergies Medications baclofen [...] Active Active Problems No known active problems Encounters Date Type Department Care Team Description 03/27/2025 11:30 AM EDT Procedure Visit [facility] Neurology [address] [place] [address] Sola Gil MD 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); Cerebrovascular accident (CVA) due to occlusion of right middle cerebral artery (HCC) 03/27/2025 Travel from Last 3 Months Social History Tobacco Use Types Packs/Day Years [...] Date Álvaro rded Speak language other than Trinidadian at home Not on file 08/03/2023 Want [...] Description 06/26/2025 11:30 AM EST Procedure Visit [facility] Neurology - [place] [address] [place] [address] Sola Gil MD [address] [facility] [address] [place] [address] Health Maintenance Due Date Last Done Comments CT Colonography 1969 Colonoscopy 1969 Colorectal Cancer Screening 1969 FOBT/FIT 1969 Fit-DNA (Cologuard) 1969 Sigmoidoscopy 1969 Depression Screening (12+) 1981 Tobacco Cessation Counseling and Screening (12+) 1981 HIV Screening 1984 Hepatitis C Screening 1987 Pap Smear 1990 Breast Cancer Screening 2009 Lipid Panel 2014 COVID-19 VACCINE ( season) 2025 Influenza Vaccine (#1) 2025 Shingles Vaccine (Zoster) (2 of 2) 04/28/20252024 DTAP/TDAP/TD VACCINES (3 - T d or Tdap) 05/03/2033 05/03/2023, 07/02/2002 Pneumococcal 50+ years Completed , 07/08/2019, 05/07/2015 Insurance Care Teams Women'S Ministry Director Relationship Specialty Start Date End Date Harlan Elena MD [address] [place] [address] PCP - General Family Medicine 09/21/22
--- OUTSIDE RECORDS SUMMARY | 2025-05-27 12:48 | XMS_ITS | Encounter Summary ---
Author Organization [facility] Address [address] [place] [address] Care Team Providers Care Glove Brusher Name Role Phone Harlan Elena MD Primary Care Provider Kelly Forbes DO Unavailable [phone] Marisa Anna MD Unavailable [phone] Reason for Visit * Reason Onset Date Comments Dupixent 03/30/2025 Encounter Details Date Type Department Care Team ([facility] Contact Info) Description 03/30/2025 Telephone [facility] [address] [place] [address] Elvira Tan, [place] [address] Dupixent Social History Tobacco Use Types Packs/Day Years [...] first t ruth ann in the morning (EYE-ELECTRONICS PROCESSING SUPERVISOR) to steady your nerves or to get [...] encounter Miscellaneous Notes * Telephone Encounter - Joaquim Craft PharmD - 05/05/2025 8:17 AM EDT Prior authorization for Dupixent has been approved and education provided. [facility] anticipated therapy start date is: 05/06/25, pending delivery from [facility] . Please see pharmacy encounter note for details. * Telephone Encounter - Joaquim Craft PharmD - 05/01/2025 9:02 AM EDT NST CA #2: LVM on been on dupixent for almost 2 years, was filling with [facility] (was having issues) * Telephone Encounter - Joaquim Craft PharmD - 04/29/2025 8:35 AM EDT NST CA #1: LVM on Not sure if she'll want to be opted in, she's been on dupixent foralmost 2 years, was filling with [facility] (was having issues) * Telephone Encounter - Joaquim Craft PharmD - 04/15/2025 9:37 AM EDT [facility] already filled this medication for her. OK to call her back 04/29 to set up fill here forthe following month. * Telephone Encounter - Joaquim Craft PharmD - 04/13/2025 2:30 PM EDT 04/13 #1: LVM on , has been on Dupixent before * Telephone Encounter - Elvira Tan PharmD - 03/30/2025 3:57 PM EDT CA#1 - LVM on M (preferred), pt wants to start filling Dupixent and other meds with [facility]. Pt existing to therapy. * Telephone Encounter - Elvira Tan PharmD - 03/30/2025 2:21 PM EDT Pt would like to start filling Dupixent with [facility] from Dr. Storey. Pt has been filling with [facility] and has been having trouble with them. Requested a new prescription to be sent over from pulmonary clinic. documented in this encounter Plan of Treatment Upcoming Encounters Date Type Department Care Team (Late st Contact Info) Description 09/08/2025 3:30 PM EST Ancillary Procedure [facility] Medicine Specialties [address] [place] [address] 09/08/2025 4:00 PM EST Office Visit [facility] Medicine Specialties [address] [place] [address] Kemar Storey MD [address] [place] [address] 09/08/2025 4:00 PM EST Ancillary Procedure [facility] [address] [place] [address] 09/09/2025 12:00 PM EST Appointment [facility] [address] [place] [address] 09/09/2025 2:45 PM EST Office Visit [facility] [address] [place] [address] Demi Slater MD [address] [place] [address] 03/19/2026 9:00 AM EDT Appointment [facility] [id number] [place] [address] Marisa Anna MD [address] [place] [address] documented as of this encounter Visit Diagnoses Not on filedocumented in this encounter Additional Health Concerns Assessment Noted Time PHQ-9 Depression Total Score: 0 03/20/20 25 1:46 PM EDT A fall risk assessment has been complete d for the patient 03/04/2025 12:52 PM EDT A Body Mass Index follow-up plan has been documented for the patient 03/03/2025 1:55 PM EDT documented as of this encounter Care Teams Glove Brusher Relationship Specialty Start Date End Date Harlan Elena MD PCP - General Family Medicine 04/11/22 Kelly Donald DO [address] [place] [address] Referring Physician Obstetrics and Gynecology 11/06/23 Marisa Anna MD [address] [address] Consulting Physician Radiation Oncology 12/14/23 documented as of this encounter
--- OUTSIDE RECORDS SUMMARY | 2025-05-27 12:48 | XMS_ITS ---
Author Organization [facility] Address [address] [place] [address] Care Team Providers Care Excel Expert Name Role Phone Harlan Elena MD Primary Care Provider Kelly Forbes DO Unavailable [phone] Marisa Anna MD Unavailable [phone] Active Problems Problem Noted Date Diagnosed Date ATN (acute tubular necrosis) 11/24/2023 Intra-abdominal abscess 11/24/2023 Endometrial cancer 11/12/2023 Tobacco use disorder 11/09/2023 Severe persistent asthma without complication Morbid obesity with body mass index (BMI) of 40. 0 or higher 04/12/2022 Current Treatment and Therapy Plans No current plan information found. Past Treatment and Therapy Plans No past plan information found. Current Radiation Episodes * VMAT: Bilateral PelvisOverview* First Treatment Date Latest Treatment Date Treatment Site Technique Goal Episode Provider 01/10/2024 02/28/2024 Bilateral Pelvis VMAT Curative * Linked Problems Endometrial cancer Treatment Courses* Course HDR 02/25/2024 - 02/28/2024 Treatment Period Fraction Dose Fractions Total Dose Plans Planned [id number] 02/28/2024 - 02/28/2024 850 cGy 850 cGy [id number] [id number] 02/28/2024 - 02/28/2024 850 cGy 850 cGy Reference Points Delivered A Left 02/28/2024 - 02/28/2024 0 cGy A Right 02/28/2024 - 02/28/2024 0 cGy [id number] 02/28/2024 - 02/28/2024 1,700 cGy [id number] 02/28/2024 - 02/28/2024 1,075 cGy * Course IMRT QA 01/31/2024 - 01/31/2024 Treatment Period Fraction Dose Fractions Total Dose Plans Planned Pelvis 01/31/2024 - 01/31/2024 180 cGy 0 / 1 1 80 cGy Reference Points Delivered Verification1 01/31/2024 - 01/31/2024 0 cGy * Course C1 01/10/2024 - 02/14/2024 Treatment Period Fraction Dose Fractions Total Dose Plans Planned Pelvis 01/10/2024 - 02/14/2024 180 cGy 25 / 25 4 ,500 cGy Reference Points Delivered Pelvis 01/10/2024 - 02/14/2024 4,500 cGy Lifetime Dose Tracking * Chemical Lifetime Dose Automatic Entry Manual Entr y CTDIvol 140.79 mGy 140.79 mGy 0 mGy Radiation (DLP) 1,675.4 mGy-cm 1,675.4 mGy-cm 0 mGy-cm Resolved Problems Problem Noted Date Diagnosed Date Resolved Date Acute encephalopathy 11/24/2023 025 Encephalopathy acute 11/24/2023 025
--- OUTSIDE RECORDS SUMMARY | 2025-05-27 12:48 | XMS_ITS | Encounter Summary ---
Author Organization [facility] Address [address] [place] [id number] Care Team Providers Care Changer Fixer Name Role Phone Harlan Elena MD Primary Care Provider Betsy Kelly Vaughn DO Unavailable [phone] Marisa Anna MD Unavailable [phone] Encounter Details Date Type Department Care Team ([facility] Contact Info) Description 03/04/2025 Results Follow-Up [facility] Gynecology [address] [place] [address] Demi Slater MD [address] [facility] [address] [place] [address] Social History Tobacco Use Types Packs/Day Years [...] first t ruth ann in the morning (EYE-BULL WHEEL WORKER) to steady your nerves or to get [...] pleasure in doing things Not at all 03/20/2025 1:46 PM Kacie Prasad Feeling down, depressed, or hopeless Not at all 03/20/2025 1:46 PM Kacie Prasad Patient Health Questionnaire -2 Score 0 03/20/2025 1:46 PM Kacie Prasad A * Question Answer Date of Assessment Author Trouble falling or staying asleep, or sleeping too much Not at all 03/20/2025 1:46 PM Doris Prasad A Feeling tired or having mannie le energy Not at all 03/20/2025 1:46 PM Kacie Prasad A Poor appetite or overeating Not at all 03/20/2025 1: 46 PM Kacie Prasad A Feeling bad about yourself - or that you are a failure or have let yourself or your family down Not at all 03/20/2025 1:46 PM Kacie Matos Trouble concentrating on thi ngs, such as reading the newspaper or watching television Not at all 03/20/2025 1:46 PM Kacie Prasad A Moving or speaking so slowly that other people could have noticed? Or the opposite - being so fidgety or restless that you have been moving around a lot more than usual. Not at all 03/20/2025 1:46 PM Kacie Prasad Thoughts that you would be b jassi off or hurting yourself in some way Not at all 03/20/2025 1:46 PM EDT Kacie Doe Patient Health Questionnaire -9 Score 0 03/20/2025 1:46 PM EDKacie Guallpa * Calculated C-SSRS Risk Score (Lifetime/Recent) Answer Date of Assessment Author No Risk Indicated 03/20/2025 1:46 PM EDT Kacie Doe * How difficult have these problems made it for you to do your work, take care of things at home, or get along with other people? Answer Date of Assessment Author Not difficult at all 03/20/2025 1:46 PM EDT Kacie Tan * How difficult have these problems made it for you to do your work, take care of things at home, or get along with other people? Answer Date of Assessment Author Not difficult at all 03/20/2025 1:46 PM EDT Kacie Tan * Question Answer Date of Assessment Author 1. Wish to be (Past 1 Month) No 025 1:46 PM EDKacie Guallpa 2. Non-Specific Active Suici makenzie Thoughts (Past 1 Month) No 03/20/2025 1:46 PM EDT Sav Doe A 6. Suicidal Behavior (Lifetime) No 1:46 PM ANATOLIYT Kacie Doe documented as of this encounter Plan of Treatment Upcoming Encounters Date Type Department Care Team (Late st Contact Info) Description 09/08/2025 3:30 PM EST Ancillary Procedure [facility] Medicine Specialties [address] [place] [address] 09/08/2025 4:00 PM EST Office Visit [facility] Medicine Specialties [address] [place] [address] Kemar Storey MD [address] [facility] [address] [place] [address] 09/08/2025 4:00 PM EST Ancillary Procedure [facility] [address] [place] [address] 09/09/2025 12:00 PM EST Appointment [facility] [address] [place] [address] 09/09/2025 2:45 PM EST Office Visit [facility] [address] [place] [address] Demi Slater MD [address] [place] [address] 03/19/2026 9:00 AM EDT Appointment [facility] [address] [place] [address] Marisa Anna MD [address] [place] [address] documented as of this encounter Visit Diagnoses Not on filedocumented in this encounter Additional Health Concerns Assessment Noted Time PHQ-9 Depression Total Score: 0 03/04/20 12:52 PM EDT A fall risk assessment has been complete d for the patient 03/04/2025 12:52 PM EDT A Body Mass Index follow-up plan has been documented for the patient 03/03/2025 1:55 PM EDT documented as of this encounter Care Teams Changer Fixer Relationship Specialty Start Date End Date Harlan Elena MD PCP - General Family Medicine 04/11/22 Kelly Donald DO [address] [place] [address] Referring Physician Obstetrics and Gynecology 11/06/23 Marisa Anna MD [address] [place] [address] Consulting Physician Radiation Oncology 12/14/23 documented as of this encounter
--- OUTSIDE RECORDS SUMMARY | 2025-05-27 12:48 | XMS_ITS | Encounter Summary ---
Author Organization Healthcare Address [address] [place] [address] Care Team Providers Care Product Safety Expert Name Role Phone Harlan Elena MD Primary Care Provider Kelly Forbes DO Unavailable [phone] Marisa Anna MD Unavailable [phone] Reason for Referral * Medications - Closed Specialty Diagnoses / Procedures Referred By Chriss rankin Referred To Contact Diagnoses Asthma-COPD overlap syndrome (CMS/HCC) Kemar Storey MD [address] [address] Phone: tel: fax: Referral ID Status Reason Start Date Expiration Date Visits Re quested Visits Authorized [id number] Closed 1 1 * Medications - Closed Specialty Diagnoses / Procedures Referred By Chriss rankin Referred To Contact Diagnoses Asthma-COPD overlap syndrome ([facility]/HCC) Kemar Storey MD [id number] [place] [address] Phone: tel: fax: Referral ID Status Reason Start Date Expiration Date Visits Re quested Visits Authorized [id number] Closed 1 1 Encounter Details Date Type Department Care Team ([facility] Contact Info) Description 03/30/2025 Refill [place] [facility] [address] [place] [address] Kemar Storey MD [address] [place] [address] Gastroesophageal reflux disease without esophagitis; Asthma-COPD overlap syndrome (CMS/HCC); Allergic rhinitis, unspecified [...] place to sleep or slept in a nursing home (including now)? No 11/19/2023 PHQ-9 Answer Date [...] first t ruth ann in the morning ([employer] TECH) to steady your nerves or to get rid of a hangover? 0 11/15/2023 CAGE Questionnaire Score 0 024 Utilities Answer Date Recorded In the past 12 months has e [employer], gas, oil, or water company threatened to [...] Description 09/08/2025 3:30 PM EST Ancillary Procedure [facility] [address] [place] [address] 09/08/2025 4:00 PM EST Office Visit [facility] [address] [place] [address] Kemar Storey MD [address] [place] [address] 09/08/2025 4:00 PM EST Ancillary Procedure [facility] [address] [place] [address] 09/09/2025 12:00 PM EST Appointment [facility] [address] [place] [address] 09/09/2025 2:45 PM EST Office Visit [facility] [address] [place] [address] Demi Slater MD [address] [place] [address] 03/19/2026 9:00 AM EDT Appointment [facility] [id number] [place] [address] Marisa Anna MD [address] [place] [address] documented as of this encounter Visit Diagnoses Diagnosis Gastroesophageal reflux disease without esophagitis Esophageal reflux Asthma-COPD overlap syndrome (CMS/HCC) Allergic rhinitis, unspecified [...] documented as of this encounter Care Teams Product Safety Expert Relationship Specialty Start Date End Date Harlan Elena MD PCP - General Family Medicine 04/11/22 Kelly Donald DO [address] [place] [address] Referring Physician Obstetrics and Gynecology 11/06/23 Marisa Anna MD [address] [facility] [address] [place] [id number] Consulting Physician Radiation Oncology 12/14/23 documented as of this encounter
--- NOTE | 2025-05-27 12:49 | XR_ITS ---
FINAL REPORT TECHNIQUE: Two views CLINICAL HISTORY: pleuritic pain COMPARISON: 03/28/2023 FINDINGS: CHEST 2 VIEWS: No acute pulmonary density is present. Mediastinal contour is normal. Heart size is stable. IMPRESSION: Stable chest exam without acute disease Reviewed, Interpreted and Dictated by Jose Trevizo MD Transcribed by Carissa Skaggs Authenticated and [facility]
== END 2025-05-27 23:59 | disposition home or self-care (01) ==
LOC: RAD 12:45
PROVIDERS: PCP Family Medicine; Visit Provider Family Medicine
DX: R09.1 Pleurisy (principal)
CPT/HCPCS: 71046